=== PATIENT | female | born 1955 | race Caucasian/White ===

== ENCOUNTER 2018-09-27 20:23 | Inpatient (IN) | payer MEDICARE, SELFPAY ==
[2018-09-27 20:42] VITALS: BP 115/74; PULSE 99; RESP 25; TEMP 39.4; O2SAT 88; BMI 58.8
[2018-09-27 20:50] VITALS: O2SAT 95
--- NOTE | 2018-09-27 20:50 | RAD_ITS ---
STUDY: X-RAY CHEST REASON FOR EXAM: Female, 63 years old. General illness, pain. TECHNIQUE: Portable chest. COMPARISON: None. FINDINGS: No pleural effusion. Increased markings in the right lower lobe and mild opacity in the left midlung, concerning for pneumonic infiltrate. Normal size heart. Hilar and mediastinal shadows are normal. Soft tissues and bony structures are unremarkable. RAD/Chest 1 View (Portable) IMPRESSION: Mild increased opacity bilaterally, concerning for pneumonia. Electronically Signed: Lynn Villar MD at 21:12 EDT Tel , Service support ,
--- NOTE | 2018-09-27 20:52 | ED.RN ---
NO OLD EKGS IN MUSE
--- NOTE | 2018-09-27 21:06 | ED.DCSUM_ITS ---
History of Present Illness Chief Complaint: General Illness Informant: Patient Onset: Days Context: Gradual Onset Timing: Intermittent Current Severity: Moderate Maximum Severity: Moderate Narrative: The patient is an obese 63-year-old female with history of [id number] diabetes who presents to the emergency department with myalgias and arthralgias. She is also had nausea and vomiting. The patient's history is hard to gather. She states that she is been having symptoms like this since February. She states she is been seen at 2 different emergency departments and they have never been able to tell me what is wrong. However, she states today she had worsening muscular pains diffusely. She states that she knows that she has neuropathy, but this felt different. She also felt like she had a fever. The patient is on 3 L of oxygen chronically for underlying COPD. She does admit to cough. She states that she had nausea without any significant emesis. The patient called squad because she does not feel well. Prior similar symptoms: Yes Recent Illness/Hospitalization: No Past Medical History - Allergies and Home Meds Allergies/Adverse Reactions: Allergies acetaminophen [From Percocet] Adverse Reaction (Verified 09/27/18 20:27) Itching cefdinir [From Omnicef] Adverse Reaction (Verified 09/27/18 20:27) Hives fexofenadine [From Astrid] Adverse Reaction (Verified 09/27/18 20:28) Itching glyburide Adverse Reaction (Verified 09/27/18 20:27) Itching hydrocodone [From Vicodin] Adverse Reaction (Verified 09/27/18 20:27) Itching hydromorphone [From Dilaudid] Adverse Reaction (Verified 09/27/18 20:27) Itching meperidine [From Demerol] Adverse Reaction (Verified 09/27/18 20:27) Hives metformin Adverse Reaction (Verified 09/27/18 20:27) Itching oxycodone [From Percocet] Adverse Reaction (Verified 09/27/18 20:27) Itching Primary Care Physician: Anahi Portillo [Primary Care Provider] - Prior records reviewed: Yes Past Medical History: - - COPD with home oxygen dependence, CHF, diabetes Surgical History: herniorrhaphy, hysterectomy Lives: With Family Smoking Status: Former smoker Alcohol: None Drugs: None Review of Systems General: Reports: Chills, Fever Eyes: Denies: Visual changes - bilaterally, Diplopia ENT: Denies: Rhinorrhea, Sore throat Cardiovascular: Denies: Chest pain, Palpitations Respiratory: Denies: Dyspnea, Cough, Dyspnea on exertion Gastrointestinal: Reports: Nausea, Vomiting Genitourinary: Reports: Dysuria, Frequency Musculoskeletal: Reports: Myalgias, Arthralgias Skin: Denies: Rash, Wounds Neurological: Denies: Headache, Weakness, Numbness Physical Exam Vital Signs/Narrative: Vital Signs Temp Pulse Resp BP Pulse Ox 09/27/18 20:42 102.9 F H 99 25 H 115/74 88 Inital Vital Signs reviewed: Yes General: Well nourished, Well developed, Obese, No Acute Distress Head: Normocephalic, Atraumatic Eyes: Perrl, EOMI ENT: Moist mucous membranes, No rhinorrhea Neck: Supple, Nontender Cardiovascular: Regular rate, Regular rhythm, No murmurs Respiratory: No distress, Chest nontender, Decreased Air Movement Abdomen: Soft, Nontender, Nondistended, Normal bowel sounds, No masses Back: Nontender, Normal Inspection Extremities: Nontender, No edema Skin: Normal color, No rash Neurological: Alert, Oriented x3, Cranial nerves II-XII grossly intact, Normal Strength, Normal Sensation Psychological: Normal affect, Normal Mood Diagnostic/Tx/Re-eval Chest X-Ray - ED: 1 View, Right Infiltrate Clinical Impression(s) from Imaging Studies Chest X-Ray 09/27/18 20:50 IMPRESSION: Mild increased opacity bilaterally, concerning for pneumonia. Electronically Signed: Lynn Villar MD at 21:12 EDT Tel , Service support , Abnormal Lab Results 09/27/18 09/27/18 09/27/18 20:59 20:59 20:59 WBC 15.8 H RBC 5.15 Hgb 13.9 Hct 43.7 MCV 84.9 MCH 27.0 MCHC 31.8 L RDW Std Deviation 49.4 H RDW Coeff of Hemanth 15.7 H Plt Count 247 MPV 8.8 Immature Gran % (Auto) 0.400 Neut % (Auto) 86.4 H Lymph % (Auto) 6.3 L [place] % (Auto) 6.1 Eos % (Auto) 0.6 Baso % (Auto) 0.2 Absolute Neuts (auto) 13.7 H Absolute Lymphs (auto) 1.00 Nucleated RBC % 0 Sodium 134 L Potassium 4.6 Chloride 97 L Carbon Dioxide 35.0 H Anion Gap 2 L BUN 11 Creatinine 0.70 Estim Creat Clear Calc 85.14 Est GFR (MDRD) Af Amer 109 Est GFR (MDRD) Non-Af 90 BUN/Creatinine Ratio 15.6 Glucose 191 H Lactic Acid 1.8 Calcium 9.9 Total Bilirubin 0.50 AST 10 L ALT 14 Alkaline Phosphatase 146 H Total Protein 7.3 Albumin 3.4 Globulin 3.9 Albumin/Globulin Ratio 0.9 Urine Color Urine Clarity Urine pH Ur Specific [place] Urine Protein Urine Glucose (UA) Urine Ketones Urine Occult Blood Urine Nitrite Urine Bilirubin Urine Urobilinogen Ur Leukocyte Esterase 09/27/18 21:37 WBC RBC Hgb Hct MCV MCH MCHC RDW Std Deviation RDW Coeff of Hemanth Plt Count MPV Immature Gran % (Auto) Neut % (Auto) Lymph % (Auto) [place] % (Auto) Eos % (Auto) Baso % (Auto) Absolute Neuts (auto) Absolute Lymphs (auto) Nucleated RBC % Sodium Potassium Chloride Carbon Dioxide Anion Gap BUN Creatinine Estim Creat Clear Calc Est GFR (MDRD) Af Amer Est GFR (MDRD) Non-Af BUN/Creatinine Ratio Glucose Lactic Acid Calcium Total Bilirubin AST ALT Alkaline Phosphatase Total Protein Albumin Globulin Albumin/Globulin Ratio Urine Color Yellow Urine Clarity Sl. Cloudy Urine pH 6.0 Ur Specific [place] 1.010 Urine Protein Negative Urine Glucose (UA) Normal Urine Ketones 5 H Urine Occult Blood Negative Urine Nitrite Positive H Urine Bilirubin Negative Urine Urobilinogen Normal Ur Leukocyte Esterase 25 H - Rhythm Strip Rhythm Strip: Sinus Rhythm Rate: 97 Ectopy: None - EKG Initial EKG Interpretation: Sinus Rhythm, No Acute Injury Pattern Prior: No Prior - Medical Decision Making The patient presents with multiple complaints. However, she does have a fever and tachypnea. She is also had increasing cough and some shortness of breath above her baseline. Sepsis work-up was pursued. The patient was given Phenergan, fluids, and Tylenol. She was feeling markedly improved once her fever was treated. Chest x-ray does show questionable bilateral infiltrates. She does has lung change in the right lower lobe on auscultation. Patient does have a leukocytosis. Otherwise, her lab markers are unremarkable. Urine was nitrite positive so culture was added. I am going to treat the patient with Levaquin. Given her evidence of infectious process with underlying lung disease, I do feel that she will benefit from admission. The patient was discussed with the hospitalist. Impression 1. Sepsis 2. Community-acquired pneumonia ED Disposition - Plan for ED Patient: Referrals: Anahi Portillo [Primary Care Provider] -
[2018-09-27] MEDS: proMETHazine 25 MG/ML Syringe 6.25 MG IV (21:08)
[2018-09-27 21:20] LABS: Absolute Neutrophil Count 13.7 X10^3/uL (2.0-7.7); Basophil# 0.03 X10^3/uL; Basophil% 0.2 % (0-1); Eosinophil# 0.09 X10^3/uL; Eosinophils% 0.6 % (0-5); Hematocrit 43.7 % (37-47); Hemoglobin 13.9 g/dL (12.0-15.0); Lymphocyte % 6.3 % (19-41); Mean Corp Hgb Conc 31.8 g/dL (32-36); Mean Corpuscular Volume 84.9 fL (81-99); Mean Platelet Vol. 8.8 fl (6.2-12.0); Monocyte# 0.96 X10^3/uL; Monocyte% 6.1 % (0-10); NRBC Flagged by Analyzer 0 % (0-5); Neutrophil # 13.69 X10^3/uL (2.7-7.7); Neutrophil % 86.4 % (47-70); Platelet Count 247 K/mm3 (150-450); RBC Distribution Width CV 15.7 % (11.6-14.6); RBC Distribution Width SD 49.4 fl (35.1-43.9); Red Blood Count 5.15 M/mm3 (4.2-5.4); White Blood Count 15.8 K/mm3 (4.4-11.0)
[2018-09-27] MEDS: Acetaminophen 500 MG Tablet 1000 MG PO (21:27)
[2018-09-27 21:34] LABS: ALB/GLOB Ratio 0.9 RATIO (0.9-2.4); AST(SGOT) 10 U/L (15-37); Alanine Aminotransfer ALT/SGPT 14 U/L (13-56); Albumin, Serum 3.4 g/dL (3.2-5.0); Alkaline Phosphatase 146 U/L (45-117); Anion Gap 2 (5-15); BUN 11 mg/dL (7-18); BUN/Creat Ratio 15.6 RATIO (10-20); Calcium,Total 9.9 mg/dL (8.5-10.1); Chloride 97 mmol/L (98-107); EST Glomerular Filtration Rate 90 mL/min (>60); Est Glom Filt Rate - Afr Amer 109 mL/min (>60); Estimated Creatinine Clearance 85.14 ml/min; Globulin 3.9 g/dL (2.2-4.2); Glucose 191 mg/dL (74-106); Potassium 4.6 mmol/L (3.5-5.1); Protein, Total 7.3 g/dL (6.4-8.2); Sodium Level 134 mmol/L (136-145)
[2018-09-27 21:41] LABS: Lactic Acid 1.8 mmol/L (0.4-2.0)
[2018-09-27 21:57] LABS: Mucous, Urine 0 SEEN /hpf (<or=2+); Red Blood Cells-Urine 0 SEEN /hpf (0-5)
[2018-09-27] MEDS: levoFLOXacin IV 750 MG/150 ML BAG 100 MG IV (21:58)
[2018-09-27 22:10] LABS: Color, Urine Yellow (Yellow); Glucose, Dipstick Normal (Normal); Ketone-Dipstick 5 mg/dl (Negative); Leukocyte Esterase-Dipstick 25 /ul (Negative); Nitrite-Dipstick Positive (Negative); Occult Blood-Urine Negative /ul (Negative); Protein-Dipstick Negative (Negative); Urine Bilirubin Dipstick Negative (Negative); Urine Clarity Sl. Cloudy (Clear); Urine Urobilinogen Normal (Normal)
--- NOTE | 2018-09-27 22:16 | HP.PCM_ITS ---
History of Present Illness Date of Admission: 09/27/18 Chief Complaint: Shortness of breath, fever The patient is a 63 year old F with past medical history which includes COPD, chronic respiratory failure due to COPD, on 2 L of oxygen and non-insulin type Beatties mellitus. She was admitted through the ED on 09/27/2018 with complaint of fever and general malaise as well as cough for the past few days. Cough was nonproductive. She had assosciated shortness of breath and orthopnea and PND as well as nausea and vomiting. She denied any chest pain, palpitations or dizziness or abdominal pain. She denied any frequency of urination or burning with urination. In the ED, she was noted to be febrile with a temperature of 102.9 Fahrenheit and retreat was 25. Vitals were otherwise stable. She was requiring 3 L of oxygen to maintain saturation above 90%. Chemistry showed bicarb of 35 and sodium of 134 but was otherwise unremarkable. Lactic acid was 1.8. CBC showed white cell count of 15.8. Chest x-ray showed mild increased opacity bilaterally concerning for pneumonia. She has been admitted to be managed for sepsis due to community-acquired pneumonia. [] Past Medical History Allergies acetaminophen [From Percocet] Adverse Reaction (Verified 09/27/18 20:27) Itching cefdinir [From Omnicef] Adverse Reaction (Verified 09/27/18 20:27) Hives fexofenadine [From Astrid] Adverse Reaction (Verified 09/27/18 20:28) Itching glyburide Adverse Reaction (Verified 09/27/18 20:27) Itching hydrocodone [From Vicodin] Adverse Reaction (Verified 09/27/18 20:27) Itching hydromorphone [From Dilaudid] Adverse Reaction (Verified 09/27/18 20:27) Itching meperidine [From Demerol] Adverse Reaction (Verified 09/27/18 20:27) Hives metformin Adverse Reaction (Verified 09/27/18 20:27) Itching oxycodone [From Percocet] Adverse Reaction (Verified 09/27/18 20:27) Itching Home Medications: Ambulatory Orders Medication Instructions Recorded Albuterol Aerosols [Ventolin 2.5 mg INHALATION Q6H PRN PRN 09/27/18 Aerosols] Bupropion HCl [Bupropion Xl] 150 mg PO BID 09/27/18 Citalopram [Celexa] 40 mg PO DAILY 09/27/18 Cyclobenzaprine HCl 10 mg PO TID PRN 09/27/18 Furosemide 40 mg PO QHS 09/27/18 Furosemide 80 mg PO DAILY 09/27/18 Gabapentin [Neurontin] 300 mg PO TID 09/27/18 Glyburide 5 mg PO LUNCH 09/27/18 Glyburide 10 mg PO DINNER 09/27/18 Insulin Glargine,Hum.rec.anlog 20 unit SQ QHS 09/27/18 [Toujeo Solostar] Metoprolol Succinate [Toprol Xl] 100 mg PO BID 09/27/18 Ranitidine [Zantac] 150 mg PO QHS 09/27/18 Simvastatin 40 mg PO QHS 09/27/18 Verapamil HCl [Verapamil ER] 240 mg PO DAILY 09/27/18 Surgical History: herniorrhaphy, hysterectomy Lives: With Family Smoking Status: Former smoker Alcohol: None Drugs: None Review of Systems Constitutional: Reports: Chills, Fever, Malaise, Weakness, Fatigue. Denies: Anorexia Eyes: Denies: Blurred vision HEENT: Denies: Head Aches, Sinus Congestion, Sinus Drainage Cardiovascular: Denies: Chest Pain, Chest Tightness, Edema, Heaviness, Light Headedness, Orthopnea, Palpitations Respiratory: Reports: Cough, Shortness of Breath, Shortness of breath at rest, Shortness of breath upon exertion. Denies: Pleuritic Pain, Sputum production, Wheezing Gastrointestinal: Denies: Abdominal Pain, Nausea, Vomiting Genitourinary: Denies: Dysuria Musculoskeletal: Denies: Joint Pain, Joint Tenderness Skin: Denies: Rash, Wounds Neurological: Denies: Numbness, Tingling, Focal weakness Psychiatric: Denies: Anxiety, Depression, Homicidal Ideations, Suicidal Ideations Hematologic/ Lymphatic: Denies: Easy Bruising, Easy Bleeding VTE Information - Inpt Only VTE Present on Admission: No VTE Pharm Prophylaxis ordered?: Yes - Physical Exam General: Alert, Oriented x3, Cooperative, No apparent distress, - - Super morbid obesity. HEENT: Atraumatic, PERRLA, EOMI, Normocephalic Oral: Moist Mucosa Neck: Supple, No JVD, Negative Carotid Bruits Lungs: - - Decreased breath sounds bibasilarly. No wheezes or crackles. On 3 L of oxygen. Cardiovascular: Regular rate, Regular Rhythm, Normal S1, Normal S2, No murmurs Abdomen: Bowel Sounds Present, Soft, Non Tender, Non-Distended, No Hepato- splenomegaly Extremities: No clubbing, No cyanosis, No edema, Capillary Refill Less than 3 Seconds Skin: No rashes, No breakdown Musculoskeletal: No Tenderness to Palpation of Joints or Extremities Lymphatic: No Cervical, Supraclavicular, or Inguinal Adenopathy Neurological: Cranial nerves II-XII grossly intact Psych/Mental Status: Normal Affect, Appropriate, Alert and oriented to time, place, person, mood and affect Vital Signs Temp Pulse Resp BP Pulse Ox 102.9 F H 99 25 H 115/74 95 09/27/18 20:42 09/27/18 20:42 09/27/18 20:42 09/27/18 20:42 09/27/18 20:50 Oxygen Flow Rate (L/min) 3 Oxygen Delivery Method Nasal Cannula Weight: 387 lb 5.635 oz Body Mass Index (BMI) 58.8 Laboratory Tests Past 24 Hrs 09/27/18 09/27/18 09/27/18 20:59 20:59 20:59 WBC 15.8 H RBC 5.15 Hgb 13.9 Hct 43.7 MCV 84.9 MCH 27.0 MCHC 31.8 L RDW Std Deviation 49.4 H RDW Coeff of Hemanth 15.7 H Plt Count 247 MPV 8.8 Immature Gran % (Auto) 0.400 Neut % (Auto) 86.4 H Lymph % (Auto) 6.3 L [place] % (Auto) 6.1 Eos % (Auto) 0.6 Baso % (Auto) 0.2 Absolute Neuts (auto) 13.7 H Absolute Lymphs (auto) 1.00 Nucleated RBC % 0 Sodium 134 L Potassium 4.6 Chloride 97 L Carbon Dioxide 35.0 H Anion Gap 2 L BUN 11 Creatinine 0.70 Estim Creat Clear Calc 85.14 Est GFR (MDRD) Af Amer 109 Est GFR (MDRD) Non-Af 90 BUN/Creatinine Ratio 15.6 Glucose 191 H Lactic Acid 1.8 Calcium 9.9 Total Bilirubin 0.50 AST 10 L ALT 14 Alkaline Phosphatase 146 H Total Protein 7.3 Albumin 3.4 Globulin 3.9 Albumin/Globulin Ratio 0.9 Urine Color Urine Clarity Urine pH Ur Specific [place] Urine Protein Urine Glucose (UA) Urine Ketones Urine Occult Blood Urine Nitrite Urine Bilirubin Urine Urobilinogen Ur Leukocyte Esterase Urine RBC Urine WBC Ur Squamous Epith Cells Urine Bacteria Urine Mucus 09/27/18 21:37 WBC RBC Hgb Hct MCV MCH MCHC RDW Std Deviation RDW Coeff of Hemanth Plt Count MPV Immature Gran % (Auto) Neut % (Auto) Lymph % (Auto) [place] % (Auto) Eos % (Auto) Baso % (Auto) Absolute Neuts (auto) Absolute Lymphs (auto) Nucleated RBC % Sodium Potassium Chloride Carbon Dioxide Anion Gap BUN Creatinine Estim Creat Clear Calc Est GFR (MDRD) Af Amer Est GFR (MDRD) Non-Af BUN/Creatinine Ratio Glucose Lactic Acid Calcium Total Bilirubin AST ALT Alkaline Phosphatase Total Protein Albumin Globulin Albumin/Globulin Ratio Urine Color Yellow Urine Clarity Sl. Cloudy Urine pH 6.0 Ur Specific [place] 1.010 Urine Protein Negative Urine Glucose (UA) Normal Urine Ketones 5 H Urine Occult Blood Negative Urine Nitrite Positive H Urine Bilirubin Negative Urine Urobilinogen Normal Ur Leukocyte Esterase 25 H Urine RBC Pending Urine WBC Pending Ur Squamous Epith Cells Pending Urine Bacteria Pending Urine Mucus Pending Diagnostic Data Chest X-Ray 09/27/18 20:50 IMPRESSION: Mild increased opacity bilaterally, concerning for pneumonia. Electronically Signed: Lynn Villar MD at 21:12 EDT Tel , Service support , Assessment/Plan 63-year-old female admitted with a complaint of fever, cough and shortness of breath. 1. Sepsis due to community acquired pneumonia and UTI * admit to PCU with telemetry * SIRS criteria is 2/4 (tachypnea and leucocytosis) * CXR showed mild increased opacity bilaterally, concerning for pneumonia) * hydrate with IVF NS. * start IV levaquin * Check sputum culture and urine for strep and Legionella as well as blood cultures. * Treat oxygen to maintain saturation above 90%. * 2. UTI: Urine bacteria 3+. Will check urine culture. Should be covered with IV levaquin. 3. Chronic hypoxic respiratory failure due to COPD: On 2 to 3 L of oxygen was on her baseline. Continue breathing treatments. 4. Hypertension: On metoprolol and verapamil. Will continue. 5. Depression: On bupropion and citalopram. 2. ?heart failure, EF unknown: not in exacerbation. On Lasix 80 mg in the morning and 40 mg at night.. Will check BNP. will get 2D echo, as no echo in records dVT prophylaxis: Lovenox Code Visit Inpatient E&M: 91543 Init Hosp L3
[2018-09-27 22:20] LABS: Bacteria 3+ /hpf (None Seen); Squamous Epithelial Cells - UA 0-5 SEEN /hpf (5-10); White Blood Cells 0-5 SEEN /hpf (0-5)
[2018-09-27 23:18] VITALS: BP 106/48; PULSE 88; PULSE 90; RESP 22; TEMP 37.5; O2SAT 92
[2018-09-27 23:19] VITALS: BP 83/37
[2018-09-27 23:26] VITALS: BMI 58.5
--- NOTE | 2018-09-27 23:34 | NURSING ---
Pt doesn't know when last pneumonia shot was.
[2018-09-27 23:45] VITALS: BMI 58.5
[2018-09-28] VITALS (15 sets, daily range): BP systolic 109–148; BP diastolic 41–77; PULSE 86–94; RESP 16–27; TEMP 36.9–38.4; O2SAT 92–98
[2018-09-28] MEDS: 0.9% Normal Saline 1,000 ML 999 ML IV (02:30)
[2018-09-28 02:36] LABS: BNP,B-Type NATRIURETIC PEPTIDE 13.6 pg/mL (0-100)
[2018-09-28] MEDS: 0.9% Normal Saline 1,000 ML 150 ML IV (04:04)
[2018-09-28] MEDS: Gabapentin 300 MG Capsule PO ×3 (05:42→22:06)
[2018-09-28] MEDS: Acetaminophen 325 MG Tablet 650 MG PO ×3 (05:42→23:35)
[2018-09-28 06:32] LABS: Absolute Lymphocyte Count 1.04 X10^3/uL (0.83-4.51); Absolute Neutrophil Count 15.2 X10^3/uL (2.0-7.7); Basophil# 0.04 X10^3/uL; Basophil% 0.2 % (0-1); Eosinophil# 0.01 X10^3/uL; Eosinophils% 0.1 % (0-5); Hematocrit 39.2 % (37-47); Hemoglobin 12.4 g/dL (12.0-15.0); Lymphocyte # 1.04 X10^3/ul (4.0); Mean Corp Hgb Conc 31.6 g/dL (32-36); Mean Corpuscular Hgb 26.2 pg (27.0-32.0); Mean Corpuscular Volume 82.7 fL (81-99); Mean Platelet Vol. 9.2 fl (6.2-12.0); Monocyte# 0.95 X10^3/uL; Monocyte% 5.5 % (0-10); NRBC Flagged by Analyzer 0 % (0-5); Neutrophil # 15.15 X10^3/uL (2.7-7.7); Neutrophil % 87.6 % (47-70); Platelet Count 223 K/mm3 (150-450); RBC Distribution Width CV 16.1 % (11.6-14.6); RBC Distribution Width SD 48.6 fl (35.1-43.9); Red Blood Count 4.74 M/mm3 (4.2-5.4); White Blood Count 17.3 K/mm3 (4.4-11.0)
[2018-09-28 06:46] LABS: Anion Gap 5 (5-15); BUN 12 mg/dL (7-18); BUN/Creat Ratio 16.8 RATIO (10-20); Calcium,Total 8.8 mg/dL (8.5-10.1); Chloride 101 mmol/L (98-107); Creatinine, Serum 0.71 mg/dL (0.55-1.02); EST Glomerular Filtration Rate 88 mL/min (>60); Est Glom Filt Rate - Afr Amer 107 mL/min (>60); Estimated Creatinine Clearance 83.94 ml/min; Glucose 110 mg/dL (74-106); Potassium 4.2 mmol/L (3.5-5.1); Sodium Level 136 mmol/L (136-145)
[2018-09-28 06:50] LABS: Bedside Glucose 100 mg/dL (70-110)
--- NOTE | 2018-09-28 08:35 | PN_ITS ---
Subjective: Patient is a 63-year-old lady past medical history significant for COPD who presented with progressive shortness of breath. Imaging studies on admission obtain was consistent with pneumonia. An assessment of sepsis secondary to pneumonia made admitted for further inpatient management. Patient seen still has significant dyspnea at rest continues to spike low-grade fever. Objective: GENERAL: cooperative HEENT: Atraumatic; moist oral mucosa EYES; Anicteric, Normal Conjunctiva NECK; supple, normal thyroid, no distended JVD. RESPIRATORY: Diminished to auscultation bilaterally, CARDIOVASCULAR: Regular S1 S2, no audible murmurs GI: soft, non-tender, normoactive bowel sounds, : No Renal angle tenderness; EXTREMITIES: No edema, no clubbing, no cyanosis. MUSCULOSKELETAL: No Joint Tenderness; no muscle waisting NEURO: Awake; no lateralizing signs. SKIN: No Rash PSYCH; Normal affect Vitals/I&O's: Vital Signs Temp Pulse Resp BP Pulse Ox 100.2 F H 87 22 H 112/51 L 93 09/28/18 07:34 09/28/18 07:34 09/28/18 07:34 09/28/18 07:34 09/28/18 07:34 Oxygen Flow Rate (L/min) 3 Oxygen Delivery Method Nasal Cannula Weight: 174.6 kg Body Mass Index (BMI) 58.5 Intake and Output for Last 24 Hours 09/26/18 09/27/18 09/28/18 23:59 23:59 23:59 Intake Total 251 / 251 1561 / 1561 Balance 251 / 251 1561 / 1561 Laboratory Results 09/27/18 20:59: WBC 15.8 H, RBC 5.15, Hgb 13.9, Hct 43.7, MCV 84.9, MCH 27.0, MCHC 31.8 L, RDW Std Deviation 49.4 H, RDW Coeff of Hemanth 15.7 H, Plt Count 247, MPV 8.8, Immature Gran % (Auto) 0.400, Neut % (Auto) 86.4 H, Lymph % (Auto) 6.3 L, [place] % (Auto) 6.1, Eos % (Auto) 0.6, Baso % (Auto) 0.2, Absolute Neuts (auto) 13.7 H, Absolute Lymphs (auto) 1.00, Nucleated RBC % 0 09/27/18 20:59: Sodium 134 L, Potassium 4.6, Chloride 97 L, Carbon Dioxide 35.0 H, Anion Gap 2 L, BUN 11, Creatinine 0.70, Estim Creat Clear Calc 85.14, Est GFR (MDRD) Af Amer 109, Est GFR (MDRD) Non-Af 90, BUN/Creatinine Ratio 15.6, Glucose 191 H, Calcium 9.9, Total Bilirubin 0.50, AST 10 L, ALT 14, Alkaline Phosphatase 146 H, Total Protein 7.3, Albumin 3.4, Globulin 3.9, Albumin/Globulin Ratio 0.9 09/27/18 20:59: Lactic Acid 1.8 09/27/18 20:59: B-Natriuretic Peptide 13.6 09/27/18 21:37: Urine Color Yellow, Urine Clarity Sl. Cloudy, Urine pH 6.0, Ur Specific [place] 1.010, Urine Protein Negative, Urine Glucose (UA) Normal, Urine Ketones 5 H, Urine Occult Blood Negative, Urine Nitrite Positive H, Urine Bilirubin Negative, Urine Urobilinogen Normal, Ur Leukocyte Esterase 25 H, Urine RBC 0 SEEN, Urine WBC 0-5 SEEN, Ur Squamous Epith Cells 0-5 SEEN, Urine Bacteria 3+, Urine Mucus 0 SEEN 09/28/18 06:00: WBC 17.3 H, RBC 4.74, Hgb 12.4, Hct 39.2, MCV 82.7, MCH 26.2 L, MCHC 31.6 L, RDW Std Deviation 48.6 H, RDW Coeff of Hemanth 16.1 H, Plt Count 223, MPV 9.2, Immature Gran % (Auto) 0.600, Neut % (Auto) 87.6 H, Lymph % (Auto) 6.0 L, [place] % (Auto) 5.5, Eos % (Auto) 0.1, Baso % (Auto) 0.2, Absolute Neuts (auto) 15.2 H, Absolute Lymphs (auto) 1.04, Nucleated RBC % 0 09/28/18 06:00: Sodium 136, Potassium 4.2, Chloride 101, Carbon Dioxide 30.0, Anion Gap 5, BUN 12, Creatinine 0.71, Estim Creat Clear Calc 83.94, Est GFR (MDRD) Af Amer 107, Est GFR (MDRD) Non-Af 88, BUN/Creatinine Ratio 16.8, Glucose 110 H, Calcium 8.8 09/28/18 06:45: POC Glucose 100 Current Medications Acetaminophen (Tylenol) 650 mg PO Q6H PRN PRN PRN Reason: Pain/Fever Last Admin: 09/28/18 05:42 Dose: 650 mg Documented by: Albuterol Sulfate (Ventolin Aerosols) 2.5 mg INHALATION Q6H PRN PRN PRN Reason: SOB &/OR WHEEZING Atorvastatin Calcium (Lipitor) 20 mg PO QHS [facility]1983 Bupropion HCl (Wellbutrin Xl) 150 mg PO BID ARASELI Citalopram Hydrobromide (Celexa) 40 mg PO DAILY ARASELI Cyclobenzaprine HCl (Flexeril) 10 mg PO TID PRN PRN Reason: SPASMS Dextrose (D50w Syringe) 0 gm IV X1 PRN; Protocol PRN Reason: Hypoglycemia Enoxaparin Sodium (Lovenox) 40 mg SC DAILY@1000 ARASELI Famotidine (Pepcid) 20 mg PO QHS [facility]1983 Gabapentin (Neurontin) 300 mg PO TID [facility] Last Admin: 09/28/18 05:42 Dose: 300 mg Documented by: Glucagon () 1 mg IM .X1 PRN PRN Reason: Hypoglycemia Guaifenesin (Robitussin) 20 ml PO Q4H PRN PRN PRN Reason: COUGH Levofloxacin (Levaquin Iv) 750 mg in 150 mls @ 100 mls/hr IV Q24 ARASELI Sodium Chloride () 250 mls @ 15 mls/hr IV .[id number] PRN PRN Reason: SALINE FLUSH Sodium Chloride () 1,000 mls @ 150 mls/hr IV .Q6H40M [facility]1983 Stop: 09/28/18 15:04 Last Admin: 09/28/18 04:04 Dose: 150 mls/hr Documented by: Insulin Human Lispro (Humalog Kwikpen (Bkc)) 0 unit SC ACHS ARASELI; Protocol Last Admin: 09/28/18 06:46 Dose: Not Given Documented by: Nutritional Formula (Lactose Free) (Glucerna Shake) 120 ml PO 4X/DAY [facility] Ondansetron HCl (Zofran) 4 mg IV Q8H PRN PRN PRN Reason: NAUSEA/VOMITING Sodium Chloride () 10 - 40 ml IV UD PRN PRN Reason: SALINE FLUSH Medical Necessity - Tobacco Use Smoking Status: Former smoker Tobacco Use: Cigarettes Assessment/Plan Patient is a 63-year-old lady past medical history significant for COPD who presented with progressive shortness of breath. Imaging studies on admission obtain was consistent with pneumonia. An assessment of sepsis secondary to pneumonia made admitted for further inpatient management. 1. Sepsis secondary to community-acquired pneumonia. Admitted to regular nursing floor started on Levaquin, aerosol treatment as well as supplemental oxygen titrated to keep pulse ox greater than 90 2. Acute on chronic congestive heart failure with unknown EF and echo has been obtained for EF assessment. Did discontinue patient's IV fluids started on Lasix 3. COPD with acute exacerbation possibly preceded by #1 added low-dose steroids in addition to treatment described above 4. Chronic hypoxic respiratory failure secondary to COPD patient is on baseline 2 to 3 L of oxygen at home. Did continue with that in addition to breathing treatment 5. Dyslipidemia-patient is on statin therapy, continued at home dose 6. Hypertension-blood pressure controlled, home medications continued with dose adjustment as needed 7. Depression with anxiety patient is on bupropion as well as citalopram did continue 8. Obstructive sleep apnea patient was apparently placed on CPAP she however did not tolerate it 9. Obesity with BMI of 58.5 with loss advised 10. DVT prophylaxis SC Lovenox Active Medications Acetaminophen (Tylenol) 650 mg PO Q6H PRN PRN PRN Reason: Pain/Fever Last Admin: 09/28/18 05:42 Dose: 650 mg Documented by: Albuterol Sulfate (Ventolin Aerosols) 2.5 mg INHALATION Q6H PRN PRN PRN Reason: SOB &/OR WHEEZING Atorvastatin Calcium (Lipitor) 20 mg PO QHS ARASELI Bupropion HCl (Wellbutrin Xl) 150 mg PO BID ARASELI Citalopram Hydrobromide (Celexa) 40 mg PO DAILY ARASELI Cyclobenzaprine HCl (Flexeril) 10 mg PO TID PRN PRN Reason: SPASMS Dextrose (D50w Syringe) 0 gm IV X1 PRN; Protocol PRN Reason: Hypoglycemia Enoxaparin Sodium (Lovenox) 40 mg SC DAILY@1000 ARASELI Famotidine (Pepcid) 20 mg PO QHS [facility]1983 Gabapentin (Neurontin) 300 mg PO TID [facility]1983 Last Admin: 09/28/18 05:42 Dose: 300 mg Documented by: Glucagon () 1 mg IM .X1 PRN PRN Reason: Hypoglycemia Guaifenesin (Robitussin) 20 ml PO Q4H PRN PRN PRN Reason: COUGH Levofloxacin (Levaquin Iv) 750 mg in 150 mls @ 100 mls/hr IV Q24 ARASELI Sodium Chloride () 250 mls @ 15 mls/hr IV .[id number] PRN PRN Reason: SALINE FLUSH Sodium Chloride () 1,000 mls @ 150 mls/hr IV .Q6H40M ARASELI Stop: 09/28/18 15:04 Last Admin: 09/28/18 04:04 Dose: 150 mls/hr Documented by: Insulin Human Lispro (Humalog Kwikpen (Bkc)) 0 unit SC ACHS ARASELI; Protocol Last Admin: 09/28/18 06:46 Dose: Not Given Documented by: Nutritional Formula (Lactose Free) (Glucerna Shake) 120 ml PO 4X/DAY ARASELI Ondansetron HCl (Zofran) 4 mg IV Q8H PRN PRN PRN Reason: NAUSEA/VOMITING Sodium Chloride () 10 - 40 ml IV UD PRN PRN Reason: SALINE FLUSH Clinical Impression(s) from Imaging Studies Chest X-Ray 09/27/18 20:50 IMPRESSION: Mild increased opacity bilaterally, concerning for pneumonia. Electronically Signed: Lynn Villar MD at 21:12 EDT Tel , Service support , Code Visit Inpatient E&M: 22542 [facility] Hosp L3
--- NOTE | 2018-09-28 09:35 | CON.PCM_ITS ---
Reason for Consult Date of Consultation: 09/28/18 Reason for Consultation: Dyspnea History of Present Illness: The patient is a 63-year-old female, with a history as outlined below, who presented to the emergency department on September 27 with complaints of generalized malaise, shortness of breath and cough. The patient has a self- reported history of COPD and asthma. She reports that she is currently followed by Dr. Shon Olmedo in [place]. She was last seen by her primary performance improvement consultant 2 months ago. She reports that she is on Advair Diskus at her baseline along with as needed albuterol. In addition, she has a baseline supplemental oxygen requirement of 2 to 3 L. She has an approximate [id number] smoking history, having quit completely in 2004. In addition, the patient has known severe obstructive sleep apnea, for which she was previously placed on nocturnal BiPAP therapy. However, the patient eventually became noncompliant with its use and therefore does not utilize any form of Pap therapy on a nightly basis any longer. On presentation to the emergency department, the patient was noted to be febrile with a temperature of 102.9 ?F. She was hemodynamically stable. Initial laboratory evaluation revealed an elevated white blood cell count to 16,000. Chemistry profile was notable for an elevated bicarbonate to 35. Lactate was within normal limits. Urinalysis was positive for nitrites and leukocyte esterase along with 3+ urine bacteria. Plain film chest x-ray revealed opacities within the right lower lobe and left mid/lower lung field. The patient was subsequently started on bronchodilators and antimicrobials. She was then admitted to the progressive care unit for further management. Past Medical History Allergies acetaminophen [From Percocet] Adverse Reaction (Verified 09/27/18 20:27) Itching cefdinir [From Omnicef] Adverse Reaction (Verified 09/27/18 20:27) Hives fexofenadine [From Astrid] Adverse Reaction (Verified 09/27/18 20:28) Itching glyburide Adverse Reaction (Verified 09/27/18 20:27) Itching hydrocodone [From Vicodin] Adverse Reaction (Verified 09/27/18 20:27) Itching hydromorphone [From Dilaudid] Adverse Reaction (Verified 09/27/18 20:27) Itching meperidine [From Demerol] Adverse Reaction (Verified 08/15/19 20:27) Hives metformin Adverse Reaction (Verified 09/27/18 20:27) Itching oxycodone [From Percocet] Adverse Reaction (Verified 09/27/18 20:27) Itching Home Medications: Ambulatory Orders Medication Instructions Recorded Albuterol Aerosols [Ventolin 2.5 mg INHALATION Q6H PRN PRN 09/27/18 Aerosols] Bupropion HCl [Bupropion Xl] 150 mg PO BID 09/27/18 Citalopram [Celexa] 40 mg PO DAILY 09/27/18 Cyclobenzaprine HCl 10 mg PO TID PRN 09/27/18 Furosemide 40 mg PO QHS 09/27/18 Furosemide 80 mg PO DAILY 09/27/18 Gabapentin [Neurontin] 300 mg PO TID 09/27/18 Glyburide 5 mg PO LUNCH 09/27/18 Glyburide 10 mg PO DINNER 09/27/18 Insulin Glargine,Hum.rec.anlog 20 unit SQ QHS 09/27/18 [Toujeo Solostar] Metoprolol Succinate [Toprol Xl] 100 mg PO BID 09/27/18 Ranitidine [Zantac] 150 mg PO QHS 09/27/18 Simvastatin 40 mg PO QHS 09/27/18 Verapamil HCl [Verapamil ER] 240 mg PO DAILY 09/27/18 Surgical History: herniorrhaphy, hysterectomy Lives: With Family Smoking Status: Former smoker Tobacco Use: Cigarettes Alcohol: None Drugs: None Review of Systems Constitutional: Reports: Malaise, Weakness, Fatigue Eyes: Denies: Blurred vision, Double vision HEENT: Denies: Head Aches, Sinus Congestion, Sinus Drainage Cardiovascular: Denies: Chest Pain, Palpitations Respiratory: Reports: Cough, Shortness of Breath. Denies: Sputum production Gastrointestinal: Denies: Abdominal Pain, Nausea, Vomiting Genitourinary: Denies: Dysuria Musculoskeletal: Denies: Joint Pain, Joint Tenderness Skin: Denies: Rash, Wounds Neurological: Denies: Numbness, Tingling, Focal weakness Psychiatric: Denies: Anxiety, Depression, Homicidal Ideations, Suicidal Ideations Hematologic/ Lymphatic: Denies: Easy Bruising, Easy Bleeding Objective: The patient's most recent lab work, culture data and imaging studies have all been personally reviewed. - Physical Exam General: Alert, Cooperative, No apparent distress, - - Morbidly obese. Resting comfortably in bed. HEENT: Atraumatic, PERRLA, Normocephalic Oral: No Gingival or Mucosal Lesions/ Ulcerations Neck: Supple, No Nodes, Trachea Midline Lungs: No rhonchi, No wheeze, No rales, Diminished Cardiovascular: Regular rate, Regular Rhythm, Normal S1, Normal S2, No murmurs Abdomen: Bowel Sounds Present, Soft, Obese Extremities: No clubbing, No cyanosis, No edema Skin: No breakdown Musculoskeletal: No Muscle Wasting Lymphatic: No Cervical, Supraclavicular, or Inguinal Adenopathy Neurological: Cranial nerves II-XII grossly intact, Neuro grossly intact Psych/Mental Status: Alert and oriented to time, place, person, mood and affect Vital Signs Temp Pulse Resp BP Pulse Ox 100.2 F H 87 22 H 112/51 L 93 09/28/18 07:34 09/28/18 07:34 09/28/18 07:34 09/28/18 07:34 09/28/18 07:34 Oxygen Flow Rate (L/min) 3 Oxygen Delivery Method Nasal Cannula Weight: 384 lb 14.833 oz Body Mass Index (BMI) 58.5 Intake and Output for Last 24 Hours 09/26/18 09/27/18 09/28/18 23:59 23:59 23:59 Intake Total 251 / 251 1561 / 1561 Balance 251 / 251 1561 / 1561 Microbiology Past 72 Hours 09/27/18 21:37 Streptococcus pneumoniae Antigen (M - Final Urine Catheter - Catheter 09/27/18 21:37 Legionella Antigen - Final Urine Catheter - Catheter Laboratory Tests Past 24 Hrs 09/27/18 09/27/18 09/27/18 20:59 20:59 20:59 WBC 15.8 H RBC 5.15 Hgb 13.9 Hct 43.7 MCV 84.9 MCH 27.0 MCHC 31.8 L RDW Std Deviation 49.4 H RDW Coeff of Hemanth 15.7 H Plt Count 247 MPV 8.8 Immature Gran % (Auto) 0.400 Neut % (Auto) 86.4 H Lymph % (Auto) 6.3 L Grayson % (Auto) 6.1 Eos % (Auto) 0.6 Baso % (Auto) 0.2 Absolute Neuts (auto) 13.7 H Absolute Lymphs (auto) 1.00 Nucleated RBC % 0 Sodium 134 L Potassium 4.6 Chloride 97 L Carbon Dioxide 35.0 H Anion Gap 2 L BUN 11 Creatinine 0.70 Estim Creat Clear Calc 85.14 Est GFR (MDRD) Af Amer 109 Est GFR (MDRD) Non-Af 90 BUN/Creatinine Ratio 15.6 Glucose 191 H Lactic Acid 1.8 Calcium 9.9 Total Bilirubin 0.50 AST 10 L ALT 14 Alkaline Phosphatase 146 H B-Natriuretic Peptide Total Protein 7.3 Albumin 3.4 Globulin 3.9 Albumin/Globulin Ratio 0.9 Urine Color Urine Clarity Urine pH Ur Specific [place] Urine Protein Urine Glucose (UA) Urine Ketones Urine Occult Blood Urine Nitrite Urine Bilirubin Urine Urobilinogen Ur Leukocyte Esterase Urine RBC Urine WBC Ur Squamous Epith Cells Urine Bacteria Urine Mucus 09/27/18 09/27/18 09/28/18 20:59 21:37 06:00 WBC 17.3 H RBC 4.74 Hgb 12.4 Hct 39.2 MCV 82.7 MCH 26.2 L MCHC 31.6 L RDW Std Deviation 48.6 H RDW Coeff of Hemanth 16.1 H Plt Count 223 MPV 9.2 Immature Gran % (Auto) 0.600 Neut % (Auto) 87.6 H Lymph % (Auto) 6.0 L [place] % (Auto) 5.5 Eos % (Auto) 0.1 Baso % (Auto) 0.2 Absolute Neuts (auto) 15.2 H Absolute Lymphs (auto) 1.04 Nucleated RBC % 0 Sodium Potassium Chloride Carbon Dioxide Anion Gap BUN Creatinine Estim Creat Clear Calc Est GFR (MDRD) Af Amer Est GFR (MDRD) Non-Af BUN/Creatinine Ratio Glucose Lactic Acid Calcium Total Bilirubin AST ALT Alkaline Phosphatase B-Natriuretic Peptide 13.6 Total Protein Albumin Globulin Albumin/Globulin Ratio Urine Color Yellow Urine Clarity Sl. Cloudy Urine pH 6.0 Ur Specific [place] 1.010 Urine Protein Negative Urine Glucose (UA) Normal Urine Ketones 5 H Urine Occult Blood Negative Urine Nitrite Positive H Urine Bilirubin Negative Urine Urobilinogen Normal Ur Leukocyte Esterase 25 H Urine RBC 0 SEEN Urine WBC 0-5 SEEN Ur Squamous Epith Cells 0-5 SEEN Urine Bacteria 3+ Urine Mucus 0 SEEN 09/28/18 06:00 WBC RBC Hgb Hct MCV MCH MCHC RDW Std Deviation RDW Coeff of Hemanth Plt Count MPV Immature Gran % (Auto) Neut % (Auto) Lymph % (Auto) [place] % (Auto) Eos % (Auto) Baso % (Auto) Absolute Neuts (auto) Absolute Lymphs (auto) Nucleated RBC % Sodium 136 Potassium 4.2 Chloride 101 Carbon Dioxide 30.0 Anion Gap 5 BUN 12 Creatinine 0.71 Estim Creat Clear Calc 83.94 Est GFR (MDRD) Af Amer 107 Est GFR (MDRD) Non-Af 88 BUN/Creatinine Ratio 16.8 Glucose 110 H Lactic Acid Calcium 8.8 Total Bilirubin AST ALT Alkaline Phosphatase B-Natriuretic Peptide Total Protein Albumin Globulin Albumin/Globulin Ratio Urine Color Urine Clarity Urine pH Ur Specific [place] Urine Protein Urine Glucose (UA) Urine Ketones Urine Occult Blood Urine Nitrite Urine Bilirubin Urine Urobilinogen Ur Leukocyte Esterase Urine RBC Urine WBC Ur Squamous Epith Cells Urine Bacteria Urine Mucus POC Glucose 09/28/18 06:45 POC Glucose 100 Clinical Impression(s) from Imaging Studies Chest X-Ray 09/27/18 20:50 IMPRESSION: Mild increased opacity bilaterally, concerning for pneumonia. Electronically Signed: Lynn Villar MD at 21:12 EDT Tel , Service support , Assessment/Plan RECOMMENDATIONS: 1. Continue baseline supplemental oxygen at 3 L/min. Encourage incentive spirometer use while in bed. 2. If the patient's cough becomes productive, please send sputum for culture. 3. Continue broad-spectrum antimicrobials. 4. Await echocardiogram. 5. Continue scheduled bronchodilators and steroids. 6. Mobilize patient as tolerated. Physical therapy evaluation pending. 7. The patient should have close interval follow-up with her primary performance improvement consultant, Dr. Olmedo, upon discharge from the hospital. IMPRESSIONS: 1. COPD/asthma exacerbation, likely secondary to community-acquired pneumonia/chronic hypoxemic respiratory failure The patient has a self-reported history of COPD/asthma of unknown severity, for which she is followed by Dr. Olmedo on an outpatient basis in [place]. She does report that her breathing quality is relatively controlled at her baseline with the use of Advair Diskus and as needed albuterol. She was last seen by her performance improvement consultant 2 months ago. She does report that her insurance company is no longer covering her Advair and she is in need of an alternative medication to take its place. She has a baseline supplemental oxygen requirement of 2 to 3 L. While the patient does endorse the presence of shortness of breath, she is currently maintaining saturations on her baseline supplemental oxygen requirement. She does have a cough, but has been unable to produce any sputum. I would recommend that if the patient's cough does become productive, to send a sample for culture. I agree with continuing empiric antimicrobials and bronchodilators for now. The patient will require close interval follow-up with her primary performance improvement consultant upon discharge from the hospital. 2. Congestive heart failure Unclear if the patient has diastolic or systolic mediated congestive heart failure. Echocardiogram is currently pending. She may also have a component of underlying pulmonary hypertension due to her underlying lung disease and noncompliance with treatment for obstructive sleep apnea. Recommend continuing outpatient diuretic regimen. 3. Obstructive sleep apnea The patient has known severe obstructive sleep apnea but has been noncompliant with the use of nocturnal BiPAP therapy for quite some time. She is not currently interested in pursuing any additional work-up or treatment for this issue. 4. Morbid obesity/hypertension/hyperlipidemia/depression/tobacco dependency, in remission/diabetes mellitus Complicates care, management, recovery and prognosis. Continue home medications as indicated. Physical therapy to evaluate patient. This note was generated with [employer] dictation software. It may contain incorrect words, spelling, and punctuation that were not noted in checking the note before signing. Code Visit Inpatient E&M: 90930 Init Hosp L3
[2018-09-28] MEDS: 0.9% NaCl Peripheral Flush Adult/Peds IV (09:46)
[2018-09-28] MEDS: levoFLOXacin IV 750 MG/150 ML BAG 100 MG IV (09:46)
[2018-09-28] MEDS: Furosemide 100 MG/10 ML Vial 80 MG IV (09:46)
[2018-09-28] MEDS: Glucerna Shake 120 ML LIQUID PO (09:48)
[2018-09-28] MEDS: Enoxaparin 40 MG/0.4 ML Syringe SC (09:59)
[2018-09-28] MEDS: Citalopram 40 MG TABLET PO (09:59)
[2018-09-28] MEDS: buPROPion (XL) 150 MG TABLET.XL PO ×2 (09:59→22:07)
[2018-09-28] MEDS: predniSONE 20 MG Tablet PO ×2 (09:59→16:27)
--- NOTE | 2018-09-28 11:29 | CASEMGMT ---
RN CM Assessment Presentation: Sepsis, pneumonia, Hx of COPD and ?CHF, Intro role of CM and purpose of RN CM assessment to patient in room. Pt is awake, alert and able to participate in assessment. Demographics, PCP and Pharmacy verified. Pt states she is generally home alone, sometimes up to 15 hours as her works. She is ambulatory in home with rollator, however states she has decreased activity level in general. Pt admits to falls at home and states this has decreased since she is using her rollator. Has not been to SNF in past, and no recent [facility] history, however pt did state she would be agreeable if recommended. -Discussed COPD and CHF management at home. Pt states she does take her medicines as orderes, former smoker. Does not actively weigh herself or monitor fluid intake. PCP: Dr. Portillo Specialists: cardiology, Dr. Gaona-pulmonology, Hematology clinic in [facility] Pharmacy: [facility] Insurance: [facility] Medicare Prescription Benefit: yes LNOK: Burke Bruno Living Arrangements: Lives in one story home with 3 steps into home. Pt states her assists with showering, cooking, cleaning. Transportation: drives DME: rollator, walker, cane, nebulizer, raised toilet seat -Home oxygen 3l [place] continuous through [facility]. Has concentrator, portability. HHC/SNF: none recent history. RN CM discussed PT/OT would evaluate pt and may recommend further therapy. Discussed Home Health, SNF. Patient DC goals: Home, but appears to be open to SNF if needed. DC PLAN: undetermined. Awaiting PT/OT evaluations for activity recommendations. Audrey SIEGEL RN ACM
[2018-09-28 11:35] LABS: Bedside Glucose 129 mg/dL (70-110)
--- NOTE | 2018-09-28 13:21 | CASEMGMT ---
Addendum entered by Verónica Turcios 09/28/18 13:35: SW spoke w/pt again, her first choice is [facility], second choice is [facility]. SW called [facility]. They can take bariatric patients. SW faxed referral, will continue to follow. MATTI Heaton Original Note: As per PT/OT, [facility] facility placement would be beneficial for this pt. SW met w/pt in regard to discharge plan. SW explained that as per PT/OT, pt would benefit from going to a [facility] facility for rehab. Pt is agreeable to this. SW provided a list of nursing homes in network with her insurance. She will review list and speak w/family, let SW know where she would like to go. SW will continue to follow and make referral as appropriate. MATTI Heaton
[2018-09-28] MEDS: Insulin Lispro 100 UNIT/ML INSULN.PEN SC ×2 (16:23→22:06)
[2018-09-28 16:35] LABS: Bedside Glucose 168 mg/dL (70-110)
--- NOTE | 2018-09-28 17:02 | CASEMGMT ---
Social Work Call placed to the [facility] to check if the can accept pt. Anahi states that pt is too ill at this time to accept but will reevaluate on Monday. Pt made aware and understanding. Pt stating if [facility] does not accept she would like [facility] or [facility]. SW to followup on Monday. EDGAR Trejo
--- NOTE | 2018-09-28 17:45 | EKG12_ITS ---
Test Reason : Blood Pressure : / mmHG Vent. Rate : 096 BPM Atrial Rate : 096 BPM P-R Int : 142 ms QRS Dur : 092 ms QT Int : 338 ms P-R-T Axes : 052 032 041 degrees QTc Int : 427 ms Normal sinus rhythm Nonspecific ST and T wave abnormality Abnormal ECG Confirmed by SUSAN ABREU, ANTIONE ([id number]), magazine editor ABDIEL WOO ([id number]) on 10/01/2018 1:12:50 PM Referred By: GIL Confirmed By:ALETHA DAVIS MD
--- NOTE | 2018-09-28 17:49 | NURSING ---
pt c/o chest pain/ pressure. this RN in room. VSS. EKG ordered. EKG sent to Dr. Jackson by [place] [facility].
--- NOTE | 2018-09-28 18:42 | NURSING ---
EKG originally sent to Dr. Jackson.Dr. Jackson apparently signed out. Dr. Salas notified. Dr Salas stated to send her old and new EKG. EKGs sent.
[2018-09-28] MEDS: Atorvastatin Calcium 20 MG Tablet PO (22:07)
[2018-09-28] MEDS: Famotidine 20 MG Tablet PO (22:07)
[2018-09-28 23:15] LABS: Bedside Glucose 278 mg/dL (70-110)
[2018-09-29] VITALS (10 sets, daily range): BP systolic 127–140; BP diastolic 61–74; PULSE 75–97; RESP 16–18; TEMP 36.7–37.2; O2SAT 93–97
[2018-09-29] MEDS: Gabapentin 300 MG Capsule PO ×3 (06:59→21:19)
[2018-09-29] MEDS: Insulin Lispro 100 UNIT/ML INSULN.PEN SC ×4 (06:59→21:18)
[2018-09-29 07:16] LABS: Bedside Glucose 195 mg/dL (70-110)
--- NOTE | 2018-09-29 07:31 | PCM.PN.HOSP ---
Subjective: Patient seen still remains relatively dyspneic at rest she however admitted to some improvement in her breathing. Echo was performed to assess the EF on 09/28/2018 results still pending. Potassium down to 3.3 this a.m. Repletion initiated. Objective: GENERAL: cooperative HEENT: Atraumatic; moist oral mucosa EYES; Anicteric, Normal Conjunctiva NECK; supple, normal thyroid, no distended JVD. RESPIRATORY: Diminished to auscultation bilaterally, CARDIOVASCULAR: Regular S1 S2, no audible murmurs GI: soft, non-tender, normoactive bowel sounds, : No Renal angle tenderness; EXTREMITIES: No edema, no clubbing, no cyanosis. MUSCULOSKELETAL: No Joint Tenderness; no muscle waisting NEURO: Awake; no lateralizing signs. SKIN: No Rash PSYCH; Normal affect Vitals/I&O's: Vital Signs Temp Pulse Resp BP Pulse Ox 98.0 F 84 18 140/61 H 97 09/29/18 04:00 09/29/18 04:00 09/29/18 04:00 09/29/18 04:00 09/29/18 04:00 Oxygen Flow Rate (L/min) 2 Oxygen Delivery Method Nasal Cannula Weight: 174.6 kg Body Mass Index (BMI) 58.5 Intake and Output for Last 24 Hours 09/27/18 09/28/18 09/29/18 23:59 23:59 23:59 Intake Total 251 / 251 3421 / 3421 240 / 240 Output Total 4650 / 4650 850 / 850 Balance 251 / 251 -1229 / -1229 -610 / -610 Microbiology Past 72 Hours 09/27/18 21:37 Urine Catheter - Catheter Streptococcus pneumoniae Antigen (M - Final 09/27/18 21:37 Urine Catheter - Catheter Legionella Antigen - Final Laboratory Results 09/28/18 11:22: POC Glucose 129 H 09/28/18 16:22: POC Glucose 168 H 09/28/18 22:02: POC Glucose 278 H 09/29/18 06:58: POC Glucose 195 H Current Medications Acetaminophen (Tylenol) 650 mg PO Q6H PRN PRN PRN Reason: Pain/Fever Last Admin: 09/28/18 23:35 Dose: 650 mg Documented by: Albuterol Sulfate (Ventolin Aerosols) 2.5 mg INHALATION Q6H PRN PRN PRN Reason: SOB &/OR WHEEZING Atorvastatin Calcium (Lipitor) 20 mg PO QHS [facility] Last Admin: 09/28/18 22:07 Dose: 20 mg Documented by: Bupropion HCl (Wellbutrin Xl) 150 mg PO BID [facility] Last Admin: 09/28/18 22:07 Dose: 150 mg Documented by: Citalopram Hydrobromide (Celexa) 40 mg PO DAILY [facility] Last Admin: 09/28/18 09:59 Dose: 40 mg Documented by: Cyclobenzaprine HCl (Flexeril) 10 mg PO TID PRN PRN Reason: SPASMS Dextrose (D50w Syringe) 0 gm IV X1 PRN; Protocol PRN Reason: Hypoglycemia Enoxaparin Sodium (Lovenox) 40 mg SC DAILY@1000 [facility] Last Admin: 09/28/18 09:59 Dose: 40 mg Documented by: Famotidine (Pepcid) 20 mg PO QHS [facility] Last Admin: 09/28/18 22:07 Dose: 20 mg Documented by: Gabapentin (Neurontin) 300 mg PO TID [facility] Last Admin: 09/29/18 06:59 Dose: 300 mg Documented by: Glucagon () 1 mg IM .X1 PRN PRN Reason: Hypoglycemia Guaifenesin (Robitussin) 20 ml PO Q4H PRN PRN PRN Reason: COUGH Levofloxacin (Levaquin Iv) 750 mg in 150 mls @ 100 mls/hr IV Q24 [facility] Last Admin: 09/28/18 09:46 Dose: 100 mls/hr Documented by: Sodium Chloride () 250 mls @ 15 mls/hr IV .[id number] PRN PRN Reason: SALINE FLUSH Insulin Glargine (Lantus (Bkc)) 20 units SC QHS [facility] Last Admin: 09/28/18 22:10 Dose: 20 u Documented by: Insulin Human Lispro (Humalog Kwikpen (Bkc)) [facility]; Protocol Last Admin: 09/29/18 06:59 Dose: 2 units Documented by: Ondansetron HCl (Zofran) 4 mg IV Q8H PRN PRN PRN Reason: NAUSEA/V[facility] Last Admin: 09/28/18 16:27 Dose: 20 mg Documented by: Sodium Chloride () 10 - 40 ml IV UD PRN PRN Reason: SALINE FLUSH Last Admin: 09/28/18 09:46 Dose: 10 ml Documented by: Medical Necessity - Tobacco Use Smoking Status: Former smoker Tobacco Use: Cigarettes Assessment/Plan Patient is a 63-year-old lady past medical history significant for COPD who presented with progressive shortness of breath. Imaging studies on admission obtain was consistent with pneumonia. An assessment of sepsis secondary to pneumonia made admitted for further inpatient management. 1. Sepsis secondary to community-acquired pneumonia. Admitted to regular nursing floor started on Levaquin, aerosol treatment as well as supplemental oxygen titrated to keep pulse ox greater than 90 2. Acute on chronic congestive heart failure with unknown EF and echo has been obtained for EF assessment. Did discontinue patient's IV fluids started on Lasix. Results of echo pending 3. COPD with acute exacerbation possibly preceded by #1 added low-dose steroids in addition to treatment described above 4. Chronic hypoxic respiratory failure secondary to COPD patient is on baseline 2 to 3 L of oxygen at home. Did continue with that in addition to breathing treatment 5. Dyslipidemia-patient is on statin therapy, continued at home dose 6. Hypertension-blood pressure controlled, home medications continued with dose adjustment as needed 7. Depression with anxiety patient is on bupropion as well as citalopram did continue 8. Obstructive sleep apnea patient was apparently placed on CPAP she however did not tolerate it 9. Obesity with BMI of 58.5 with loss advised 10. DVT prophylaxis SC Lovenox 11. Hypokalemia corrected per protocol Code Visit Inpatient E&M: 93162 Subs Hosp L2
--- NOTE | 2018-09-29 07:34 | PCM.PN.PUL ---
Subjective: The patient was seen and examined at the bedside this morning. Events from the last 24 hours have been reviewed. The patient is currently afebrile, hemodynamically stable and maintaining appropriate oxygen saturations on 2 L/min via nasal cannula. No overnight events were noted. Objective: The patient's most recent lab work, culture data and imaging studies have all been personally reviewed. Strep and urine Legionella antigens were negative. Blood and urine cultures are pending. - Physical Exam General: Alert, Cooperative, No apparent distress, - - Morbidly obese HEENT: Atraumatic, Normocephalic Oral: No Gingival or Mucosal Lesions/ Ulcerations Neck: Supple, No Nodes, Trachea Midline Lungs: No rhonchi, No wheeze, No rales, Diminished Cardiovascular: Regular rate, Regular Rhythm, Normal S1, Normal S2, No murmurs Abdomen: Bowel Sounds Present, Soft, Obese Extremities: No clubbing, No cyanosis, No edema Skin: - - No significant change from previous Musculoskeletal: No Tenderness to Palpation of Joints or Extremities Lymphatic: No Cervical, Supraclavicular, or Inguinal Adenopathy Neurological: Cranial nerves II-XII grossly intact, Neuro grossly intact Psych/Mental Status: Normal Affect, Appropriate Vital Signs Temp Pulse Resp BP Pulse Ox 98.0 F 84 18 140/61 H 97 09/29/18 04:00 09/29/18 04:00 09/29/18 04:00 09/29/18 04:00 09/29/18 04:00 Oxygen Flow Rate (L/min) 2 Oxygen Delivery Method Nasal Cannula Weight: 384 lb 14.833 oz Body Mass Index (BMI) 58.5 Intake and Output for Last 24 Hours 09/27/18 09/28/18 09/29/18 23:59 23:59 23:59 Intake Total 251 / 251 3421 / 3421 240 / 240 Output Total 4650 / 4650 850 / 850 Balance 251 / 251 -1229 / -1229 -610 / -610 Microbiology Past 72 Hours 09/27/18 21:37 Streptococcus pneumoniae Antigen (M - Final Urine Catheter - Catheter 09/27/18 21:37 Legionella Antigen - Final Urine Catheter - Catheter POC Glucose 09/29/18 09/28/18 09/28/18 06:58 22:02 16:22 POC Glucose 195 H 278 H 168 H 08/16/19 11:22 POC Glucose 129 H Labs (Last 48 Hours) 09/27/18 09/27/18 09/27/18 20:59 20:59 20:59 WBC 15.8 H RBC 5.15 Hgb 13.9 Hct 43.7 MCV 84.9 MCH 27.0 MCHC 31.8 L RDW Std Deviation 49.4 H RDW Coeff of Hemanth 15.7 H Plt Count 247 MPV 8.8 Immature Gran % (Auto) 0.400 Neut % (Auto) 86.4 H Lymph % (Auto) 6.3 L [place] % (Auto) 6.1 Eos % (Auto) 0.6 Baso % (Auto) 0.2 Absolute Neuts (auto) 13.7 H Absolute Lymphs (auto) 1.00 Nucleated RBC % 0 Sodium 134 L Potassium 4.6 Chloride 97 L Carbon Dioxide 35.0 H Anion Gap 2 L BUN 11 Creatinine 0.70 Estim Creat Clear Calc 85.14 Est GFR (MDRD) Af Amer 109 Est GFR (MDRD) Non-Af 90 BUN/Creatinine Ratio 15.6 Glucose 191 H Lactic Acid 1.8 Calcium 9.9 Total Bilirubin 0.50 AST 10 L ALT 14 Alkaline Phosphatase 146 H B-Natriuretic Peptide Total Protein 7.3 Albumin 3.4 Globulin 3.9 Albumin/Globulin Ratio 0.9 Urine Color Urine Clarity Urine pH Ur Specific [place] Urine Protein Urine Glucose (UA) Urine Ketones Urine Occult Blood Urine Nitrite Urine Bilirubin Urine Urobilinogen Ur Leukocyte Esterase Urine RBC Urine WBC Ur Squamous Epith Cells Urine Bacteria Urine Mucus POC Glucose 09/27/18 09/27/18 09/28/18 20:59 21:37 06:00 WBC 17.3 H RBC 4.74 Hgb 12.4 Hct 39.2 MCV 82.7 MCH 26.2 L MCHC 31.6 L RDW Std Deviation 48.6 H RDW Coeff of Hemanth 16.1 H Plt Count 223 MPV 9.2 Immature Gran % (Auto) 0.600 Neut % (Auto) 87.6 H Lymph % (Auto) 6.0 L [place] % (Auto) 5.5 Eos % (Auto) 0.1 Baso % (Auto) 0.2 Absolute Neuts (auto) 15.2 H Absolute Lymphs (auto) 1.04 Nucleated RBC % 0 Sodium Potassium Chloride Carbon Dioxide Anion Gap BUN Creatinine Estim Creat Clear Calc Est GFR (MDRD) Af Amer Est GFR (MDRD) Non-Af BUN/Creatinine Ratio Glucose Lactic Acid Calcium Total Bilirubin AST ALT Alkaline Phosphatase B-Natriuretic Peptide 13.6 Total Protein Albumin Globulin Albumin/Globulin Ratio Urine Color Yellow Urine Clarity Sl. Cloudy Urine pH 6.0 Ur Specific [place] 1.010 Urine Protein Negative Urine Glucose (UA) Normal Urine Ketones 5 H Urine Occult Blood Negative Urine Nitrite Positive H Urine Bilirubin Negative Urine Urobilinogen Normal Ur Leukocyte Esterase 25 H Urine RBC 0 SEEN Urine WBC 0-5 SEEN Ur Squamous Epith Cells 0-5 SEEN Urine Bacteria 3+ Urine Mucus 0 SEEN POC Glucose 09/28/18 09/28/18 09/28/18 06:00 06:45 11:22 WBC RBC Hgb Hct MCV MCH MCHC RDW Std Deviation RDW Coeff of Hemanth Plt Count MPV Immature Gran % (Auto) Neut % (Auto) Lymph % (Auto) [place] % (Auto) Eos % (Auto) Baso % (Auto) Absolute Neuts (auto) Absolute Lymphs (auto) Nucleated RBC % Sodium 136 Potassium 4.2 Chloride 101 Carbon Dioxide 30.0 Anion Gap 5 BUN 12 Creatinine 0.71 Estim Creat Clear Calc 83.94 Est GFR (MDRD) Af Amer 107 Est GFR (MDRD) Non-Af 88 BUN/Creatinine Ratio 16.8 Glucose 110 H Lactic Acid Calcium 8.8 Total Bilirubin AST ALT Alkaline Phosphatase B-Natriuretic Peptide Total Protein Albumin Globulin Albumin/Globulin Ratio Urine Color Urine Clarity Urine pH Ur Specific [place] Urine Protein Urine Glucose (UA) Urine Ketones Urine Occult Blood Urine Nitrite Urine Bilirubin Urine Urobilinogen Ur Leukocyte Esterase Urine RBC Urine WBC Ur Squamous Epith Cells Urine Bacteria Urine Mucus POC Glucose 100 129 H 09/28/18 09/28/18 09/29/18 16:22 22:02 06:58 WBC RBC Hgb Hct MCV MCH MCHC RDW Std Deviation RDW Coeff of Hemanth Plt Count MPV Immature Gran % (Auto) Neut % (Auto) Lymph % (Auto) [place] % (Auto) Eos % (Auto) Baso % (Auto) Absolute Neuts (auto) Absolute Lymphs (auto) Nucleated RBC % Sodium Potassium Chloride Carbon Dioxide Anion Gap BUN Creatinine Estim Creat Clear Calc Est GFR (MDRD) Af Amer Est GFR (MDRD) Non-Af BUN/Creatinine Ratio Glucose Lactic Acid Calcium Total Bilirubin AST ALT Alkaline Phosphatase B-Natriuretic Peptide Total Protein Albumin Globulin Albumin/Globulin Ratio Urine Color Urine Clarity Urine pH Ur Specific [place] Urine Protein Urine Glucose (UA) Urine Ketones Urine Occult Blood Urine Nitrite Urine Bilirubin Urine Urobilinogen Ur Leukocyte Esterase Urine RBC Urine WBC Ur Squamous Epith Cells Urine Bacteria Urine Mucus POC Glucose 168 H 278 H 195 H Microbiology 09/27/18 21:37 Urine Catheter - Catheter Streptococcus pneumoniae Antigen (M - Final 09/27/18 21:37 Urine Catheter - Catheter Legionella Antigen - Final Clinical Impression(s) from Imaging Studies Chest X-Ray 09/27/18 20:50 IMPRESSION: Mild increased opacity bilaterally, concerning for pneumonia. Electronically Signed: Lynn Villar MD at 21:12 EDT Tel , Service support , Medical Necessity - Tobacco Use Smoking Status: Former smoker Tobacco Use: Cigarettes Assessment/Plan RECOMMENDATIONS: 1. Continue baseline supplemental oxygen. Encourage incentive spirometer use while in bed. 2. If the patient's cough becomes productive, please send sputum for culture. 3. Continue antibiotic as ordered, pending infectious work-up. 4. Continue scheduled bronchodilators and steroids. I would plan to stop the prednisone completely after 5 days. 5. Mobilize patient as tolerated. 6. The patient should have close interval follow-up with her primary server cashier, Dr. Olmedo, upon discharge from the hospital. IMPRESSIONS: 1. COPD/asthma exacerbation, likely secondary to community-acquired pneumonia/chronic hypoxemic respiratory failure The patient has a self-reported history of COPD/asthma of unknown severity, for which she is followed by Dr. Olmedo on an outpatient basis in [place]. She does report that her breathing quality is relatively controlled at her baseline with the use of Advair Diskus and as needed albuterol. She was last seen by her server cashier 2 months ago. She does report that her insurance company is no longer covering her Advair and she is in need of an alternative medication to take its place. She has a baseline supplemental oxygen requirement of 2 to 3 L. While the patient does endorse the presence of shortness of breath, she is currently maintaining saturations on her baseline supplemental oxygen requirement. She does have a cough, but has been unable to produce any sputum. I would recommend that if the patient's cough does become productive, to send a sample for culture. I agree with continuing empiric antimicrobials and bronchodilators for now. A 7-day treatment course of antibiotics would be adequate to cover for potential community-acquired pneumonia/cystitis. I would also plan to complete a 5-day burst of prednisone. The patient will require close interval follow-up with her primary server cashier upon discharge from the hospital. 2. Congestive heart failure Unclear if the patient has diastolic or systolic mediated congestive heart failure. Echocardiogram is currently pending. She may also have a component of underlying pulmonary hypertension due to her underlying lung disease and noncompliance with treatment for obstructive sleep apnea. Recommend continuing outpatient diuretic regimen. 3. Obstructive sleep apnea The patient has known severe obstructive sleep apnea but has been noncompliant with the use of nocturnal BiPAP therapy for quite some time. She is not currently interested in pursuing any additional work-up or treatment for this issue. 4. Morbid obesity/hypertension/hyperlipidemia/depression/tobacco dependency, in remission/diabetes mellitus Complicates care, management, recovery and prognosis. Continue home medications as indicated. This note was generated with [employer] dictation software. It may contain incorrect words, spelling, and punctuation that were not noted in checking the note before signing. Code Visit Inpatient E&M: 74954 Subs Hosp L2
[2018-09-29 08:01] LABS: Absolute Lymphocyte Count 1.28 X10^3/uL (0.83-4.51); Absolute Neutrophil Count 11.9 X10^3/uL (2.0-7.7); Basophil# 0.02 X10^3/uL; Basophil% 0.1 % (0-1); Eosinophil# 0.01 X10^3/uL; Eosinophils% 0.1 % (0-5); Hematocrit 41.5 % (37-47); Hemoglobin 12.8 g/dL (12.0-15.0); Lymphocyte # 1.28 X10^3/ul (4.0); Mean Corp Hgb Conc 30.8 g/dL (32-36); Mean Corpuscular Volume 84.3 fL (81-99); Mean Platelet Vol. 8.9 fl (6.2-12.0); Monocyte# 0.97 X10^3/uL; Monocyte% 6.8 % (0-10); NRBC Flagged by Analyzer 0 % (0-5); Neutrophil # 11.88 X10^3/uL (2.7-7.7); Neutrophil % 83.4 % (47-70); Platelet Count 216 K/mm3 (150-450); RBC Distribution Width CV 16.6 % (11.6-14.6); RBC Distribution Width SD 51.7 fl (35.1-43.9); Red Blood Count 4.92 M/mm3 (4.2-5.4); White Blood Count 14.2 K/mm3 (4.4-11.0)
[2018-09-29 08:11] LABS: Anion Gap 4 (5-15); BUN 12 mg/dL (7-18); BUN/Creat Ratio 19.5 RATIO (10-20); Calcium,Total 9.5 mg/dL (8.5-10.1); Chloride 100 mmol/L (98-107); Creatinine, Serum 0.61 mg/dL (0.55-1.02); EST Glomerular Filtration Rate 105 mL/min (>60); Est Glom Filt Rate - Afr Amer 127 mL/min (>60); Glucose 183 mg/dL (74-106); Magnesium 1.9 mg/dL (1.6-2.6); Potassium 3.3 mmol/L (3.5-5.1); Sodium Level 138 mmol/L (136-145)
[2018-09-29] MEDS: Furosemide 100 MG/10 ML Vial 80 MG IV (09:33)
[2018-09-29] MEDS: levoFLOXacin IV 750 MG/150 ML BAG 100 MG IV (09:33)
[2018-09-29] MEDS: Citalopram 40 MG TABLET PO (09:34)
[2018-09-29] MEDS: predniSONE 20 MG Tablet PO ×2 (09:34→17:25)
[2018-09-29] MEDS: buPROPion (XL) 150 MG TABLET.XL PO ×2 (09:34→21:19)
[2018-09-29] MEDS: Enoxaparin 40 MG/0.4 ML Syringe SC (09:34)
[2018-09-29 11:46] LABS: Bedside Glucose 199 mg/dL (70-110)
[2018-09-29] MEDS: cycloBENZAPRine HCl 10 MG Tablet PO ×2 (13:30→19:40)
[2018-09-29] MEDS: Acetaminophen 325 MG Tablet 650 MG PO ×2 (13:35→19:40)
[2018-09-29 17:36] LABS: Bedside Glucose 354 mg/dL (70-110)
[2018-09-29] MEDS: Atorvastatin Calcium 20 MG Tablet PO (21:19)
[2018-09-29] MEDS: Famotidine 20 MG Tablet PO (21:20)
[2018-09-29 21:56] LABS: Bedside Glucose 395 mg/dL (70-110)
[2018-09-30] VITALS (12 sets, daily range): BP systolic 148–159; BP diastolic 64–94; PULSE 69–97; RESP 18; TEMP 36.4–36.6; O2SAT 93–96
[2018-09-30 06:11] LABS: Absolute Lymphocyte Count 1.58 X10^3/uL (0.83-4.51); Absolute Neutrophil Count 10.3 X10^3/uL (2.0-7.7); Basophil# 0.02 X10^3/uL; Basophil% 0.2 % (0-1); Hematocrit 41.7 % (37-47); Hemoglobin 12.7 g/dL (12.0-15.0); Lymphocyte # 1.58 X10^3/ul (4.0); Lymphocyte % 12.7 % (19-41); Mean Corp Hgb Conc 30.5 g/dL (32-36); Mean Corpuscular Volume 85.3 fL (81-99); Monocyte# 0.47 X10^3/uL; Monocyte% 3.8 % (0-10); NRBC Flagged by Analyzer 0 % (0-5); Neutrophil # 10.34 X10^3/uL (2.7-7.7); Neutrophil % 82.7 % (47-70); Platelet Count 245 K/mm3 (150-450); RBC Distribution Width CV 16.4 % (11.6-14.6); RBC Distribution Width SD 51.6 fl (35.1-43.9); Red Blood Count 4.89 M/mm3 (4.2-5.4); White Blood Count 12.5 K/mm3 (4.4-11.0)
[2018-09-30 06:24] LABS: Anion Gap 4 (5-15); BUN 15 mg/dL (7-18); BUN/Creat Ratio 22.8 RATIO (10-20); Calcium,Total 9.7 mg/dL (8.5-10.1); Chloride 99 mmol/L (98-107); Creatinine, Serum 0.66 mg/dL (0.55-1.02); EST Glomerular Filtration Rate 97 mL/min (>60); Est Glom Filt Rate - Afr Amer 117 mL/min (>60); Glucose 279 mg/dL (74-106); Potassium 4.2 mmol/L (3.5-5.1); Sodium Level 139 mmol/L (136-145)
--- NOTE | 2018-09-30 06:29 | PN_ITS ---
Subjective: The patient was seen and examined at the bedside this morning. Events from the last 24 hours have been reviewed. The patient is currently afebrile, hemodynamically stable and maintaining appropriate oxygen saturations on 2 L/min via nasal cannula. There has been some interval improvement in the patient's overall breathing quality since admission to the hospital. Objective: The patient's most recent lab work, culture data and imaging studies have all been personally reviewed. Strep and urine Legionella antigens were both negative. Blood and urine cultures are pending. - Physical Exam General: Alert, Cooperative, No apparent distress, - - Morbidly obese HEENT: Atraumatic, PERRLA, Normocephalic Oral: No Gingival or Mucosal Lesions/ Ulcerations Neck: Supple, No Nodes, Trachea Midline Lungs: No rhonchi, No wheeze, No rales, Diminished Cardiovascular: Regular rate, Regular Rhythm, Normal S1, Normal S2, No murmurs Abdomen: Bowel Sounds Present, Soft, Non Tender, Obese Extremities: No clubbing, No cyanosis, No edema Skin: No breakdown Musculoskeletal: No Tenderness to Palpation of Joints or Extremities, No Muscle Wasting Lymphatic: No Cervical, Supraclavicular, or Inguinal Adenopathy Neurological: Cranial nerves II-XII grossly intact, Neuro grossly intact Psych/Mental Status: Normal Affect, Appropriate Vital Signs Temp Pulse Resp BP Pulse Ox 97.7 F L 88 18 150/80 H 93 09/30/18 03:25 09/30/18 03:25 09/30/18 03:25 09/30/18 03:25 09/30/18 03:25 Oxygen Flow Rate (L/min) 2 Oxygen Delivery Method Nasal Cannula Weight: 384 lb 14.833 oz Body Mass Index (BMI) 58.5 Intake and Output for Last 24 Hours 09/28/18 09/29/18 09/30/18 23:59 23:59 23:59 Intake Total 3421 / 3421 240 / 240 240 / 240 Output Total 4650 / 4650 3750 / 3750 650 / 650 Balance -1229 / -1229 -3510 / -3510 -410 / -410 Microbiology Past 72 Hours 09/27/18 21:37 Streptococcus pneumoniae Antigen (M - Final Urine Catheter - Catheter 09/27/18 21:37 Legionella Antigen - Final Urine Catheter - Catheter Laboratory Tests Past 24 Hrs 08/09/29/18 09/30/18 07:45 07:45 05:36 WBC 14.2 H 12.5 H RBC 4.92 4.89 Hgb 12.8 12.7 Hct 41.5 41.7 MCV 84.3 85.3 MCH 26.0 L 26.0 L MCHC 30.8 L 30.5 L RDW Std Deviation 51.7 H 51.6 H RDW Coeff of Hemanth 16.6 H 16.4 H Plt Count 216 245 MPV 8.9 9.0 Immature Gran % (Auto) 0.600 0.600 Neut % (Auto) 83.4 H 82.7 H Lymph % (Auto) 9.0 L 12.7 L [place] % (Auto) 6.8 3.8 Eos % (Auto) 0.1 0.0 Baso % (Auto) 0.1 0.2 Absolute Neuts (auto) 11.9 H 10.3 H Absolute Lymphs (auto) 1.28 1.58 Nucleated RBC % 0 0 Sodium 138 Potassium 3.3 L Chloride 100 Carbon Dioxide 34.0 H Anion Gap 4 L BUN 12 Creatinine 0.61 Estim Creat Clear Calc 97.70 Est GFR (MDRD) Af Amer 127 Est GFR (MDRD) Non-Af 105 BUN/Creatinine Ratio 19.5 Glucose 183 H Calcium 9.5 Magnesium 1.9 09/30/18 05:36 WBC RBC Hgb Hct MCV MCH MCHC RDW Std Deviation RDW Coeff of Hemanth Plt Count MPV Immature Gran % (Auto) Neut % (Auto) Lymph % (Auto) [place] % (Auto) Eos % (Auto) Baso % (Auto) Absolute Neuts (auto) Absolute Lymphs (auto) Nucleated RBC % Sodium 139 Potassium 4.2 Chloride 99 Carbon Dioxide 36.0 H Anion Gap 4 L BUN 15 Creatinine 0.66 Estim Creat Clear Calc 90.30 Est GFR (MDRD) Af Amer 117 Est GFR (MDRD) Non-Af 97 BUN/Creatinine Ratio 22.8 H Glucose 279 H Calcium 9.7 Magnesium POC Glucose 09/29/18 09/29/18 09/29/18 21:16 17:23 11:17 POC Glucose 395 H 354 H 199 H 09/29/18 06:58 POC Glucose 195 H Clinical Impression(s) from Imaging Studies Chest X-Ray 09/27/18 20:50 IMPRESSION: Mild increased opacity bilaterally, concerning for pneumonia. Electronically Signed: Lynn Villar MD at 21:12 EDT Tel , Service support , Medical Necessity - Tobacco Use Smoking Status: Former smoker Tobacco Use: Cigarettes Assessment/Plan RECOMMENDATIONS: 1. Continue baseline supplemental oxygen. Encourage incentive spirometer use while in bed. 2. If the patient's cough becomes productive, please send sputum for culture. 3. Continue antibiotic as ordered, pending infectious work-up. 4. Continue scheduled bronchodilators and steroids. I would plan to stop the prednisone completely after 5 days. 5. Mobilize patient as tolerated. 6. The patient should have close interval follow-up with her primary director veterinary, Dr. Olmedo, upon discharge from the hospital. IMPRESSIONS: 1. COPD/asthma exacerbation, likely secondary to community-acquired pneumonia/chronic hypoxemic respiratory failure The patient has a self-reported history of COPD/asthma of unknown severity, for which she is followed by Dr. Olmedo on an outpatient basis in [place]. She does report that her breathing quality is relatively controlled at her baseline with the use of Advair Diskus and as needed albuterol. She was last seen by her director veterinary 2 months ago. She does report that her insurance company is no longer covering her Advair and she is in need of an alternative medication to take its place. She has a baseline supplemental oxygen requirement of 2 to 3 L. While the patient does endorse the presence of shortness of breath, she is currently maintaining saturations on her baseline supplemental oxygen requirement. She does have a cough, but has been unable to produce any sputum. I would recommend that if the patient's cough does become productive, to send a sample for culture. I agree with continuing empiric antimicrobials and bronchodilators for now. A 7-day treatment course of antibiotics would be adequate to cover for potential community-acquired pneumonia/cystitis. I would also plan to complete a 5-day burst of prednisone. The patient will require close interval follow-up with her primary director veterinary upon discharge from the hospital. 2. Congestive heart failure Unclear if the patient has diastolic or systolic mediated congestive heart failure. Echocardiogram is currently pending. She may also have a component of underlying pulmonary hypertension due to her underlying lung disease and noncompliance with treatment for obstructive sleep apnea. Recommend continuing outpatient diuretic regimen. 3. Obstructive sleep apnea The patient has known severe obstructive sleep apnea but has been noncompliant with the use of nocturnal BiPAP therapy for quite some time. She is not currently interested in pursuing any additional work-up or treatment for this issue. 4. Morbid obesity/hypertension/hyperlipidemia/depression/tobacco dependency, in remission/diabetes mellitus Complicates care, management, recovery and prognosis. Continue home medications as indicated. This note was generated with [employer] dictation software. It may contain incorrect words, spelling, and punctuation that were not noted in checking the note before signing. Code Visit Inpatient E&M: 44929 Subs Hosp L2
[2018-09-30] MEDS: Gabapentin 300 MG Capsule PO ×3 (07:10→21:54)
[2018-09-30] MEDS: Insulin Lispro 100 UNIT/ML INSULN.PEN SC ×4 (07:10→21:54)
[2018-09-30 07:21] LABS: Bedside Glucose 235 mg/dL (70-110)
--- NOTE | 2018-09-30 07:27 | PCM.PN.HOSP ---
Subjective: Patient seen complains of low back pain. She states that she apparently strained her back while trying to reach for a cup. Her breathing status continues to improve. Ordered a 2D echo which is scheduled to be performed on 10/01/2018. Patient has also been seen by PT and case management and plan is for patient to be transferred to retirement facility pending bed availability Objective: GENERAL: cooperative HEENT: Atraumatic; EYES; Anicteric, Normal Conjunctiva NECK; supple, normal thyroid, RESPIRATORY: Diminished to auscultation CARDIOVASCULAR: Regular S1 S2, GI: soft, non-tender, normoactive bowel sounds, : No Renal angle tenderness; EXTREMITIES: No edema, no clubbing, MUSCULOSKELETAL: No Joint Tenderness; NEURO: Awake; no lateralizing signs. SKIN: No Rash PSYCH; flat affect Vitals/I&O's: Vital Signs Temp Pulse Resp BP Pulse Ox 97.7 F L 88 18 150/80 H 93 09/30/18 03:25 09/30/18 03:25 09/30/18 03:25 09/30/18 03:25 09/30/18 03:25 Oxygen Flow Rate (L/min) 2 Oxygen Delivery Method Nasal Cannula Weight: 174.6 kg Body Mass Index (BMI) 58.5 Intake and Output for Last 24 Hours 09/28/18 09/29/18 09/30/18 23:59 23:59 23:59 Intake Total 3421 / 3421 240 / 240 480 / 480 Output Total 4650 / 4650 3750 / 3750 1450 / 1450 Balance -1229 / -1229 -3510 / -3510 -970 / -970 Microbiology Past 72 Hours 09/27/18 21:37 Urine Catheter - Catheter Streptococcus pneumoniae Antigen (M - Final 09/27/18 21:37 Urine Catheter - Catheter Legionella Antigen - Final Laboratory Results 09/29/18 07:45: WBC 14.2 H, RBC 4.92, Hgb 12.8, Hct 41.5, MCV 84.3, MCH 26.0 L, MCHC 30.8 L, RDW Std Deviation 51.7 H, RDW Coeff of Hemanth 16.6 H, Plt Count 216, MPV 8.9, Immature Gran % (Auto) 0.600, Neut % (Auto) 83.4 H, Lymph % (Auto) 9.0 L, [place] % (Auto) 6.8, Eos % (Auto) 0.1, Baso % (Auto) 0.1, Absolute Neuts (auto) 11.9 H, Absolute Lymphs (auto) 1.28, Nucleated RBC % 0 09/29/18 07:45: Sodium 138, Potassium 3.3 L, Chloride 100, Carbon Dioxide 34.0 H, Anion Gap 4 L, BUN 12, Creatinine 0.61, Estim Creat Clear Calc 97.70, Est GFR (MDRD) Af Amer 127, Est GFR (MDRD) Non-Af 105, BUN/Creatinine Ratio 19.5, Glucose 183 H, Calcium 9.5, Magnesium 1.9 09/29/18 11:17: POC Glucose 199 H 09/29/18 17:23: POC Glucose 354 H 09/29/18 21:16: POC Glucose 395 H 09/30/18 05:36: WBC 12.5 H, RBC 4.89, Hgb 12.7, Hct 41.7, MCV 85.3, MCH 26.0 L, MCHC 30.5 L, RDW Std Deviation 51.6 H, RDW Coeff of Hemanth 16.4 H, Plt Count 245, MPV 9.0, Immature Gran % (Auto) 0.600, Neut % (Auto) 82.7 H, Lymph % (Auto) 12.7 L, [place] % (Auto) 3.8, Eos % (Auto) 0.0, Baso % (Auto) 0.2, Absolute Neuts (auto) 10.3 H, Absolute Lymphs (auto) 1.58, Nucleated RBC % 0 09/30/18 05:36: Sodium 139, Potassium 4.2, Chloride 99, Carbon Dioxide 36.0 H, Anion Gap 4 L, BUN 15, Creatinine 0.66, Estim Creat Clear Calc 90.30, Est GFR (MDRD) Af Amer 117, Est GFR (MDRD) Non-Af 97, BUN/Creatinine Ratio 22.8 H, Glucose 279 H, Calcium 9.7 09/30/18 07:09: POC Glucose 235 H Current Medications Acetaminophen (Tylenol) 650 mg PO Q6H PRN PRN PRN Reason: Pain/Fever Last Admin: 09/29/18 19:40 Dose: 650 mg Documented by: Albuterol Sulfate (Ventolin Aerosols) 2.5 mg INHALATION Q6H PRN PRN PRN Reason: SOB &/OR WHEEZING Atorvastatin Calcium (Lipitor) 20 mg PO QHS [facility] Last Admin: 09/29/18 21:19 Dose: 20 mg Documented by: Bupropion HCl (Wellbutrin Xl) 150 mg PO BID [facility] Last Admin: 09/29/18 21:19 Dose: 150 mg Documented by: Citalopram Hydrobromide (Celexa) 40 mg PO DAILY [facility] Last Admin: 09/29/18 09:34 Dose: 40 mg Documented by: Cyclobenzaprine HCl (Flexeril) 10 mg PO TID PRN PRN Reason: SPASMS Last Admin: 09/29/18 19:40 Dose: 10 mg Documented by: Dextrose (D50w Syringe) 0 gm IV X1 PRN; Protocol PRN Reason: Hypoglycemia Enoxaparin Sodium (Lovenox) 40 mg SC DAILY@1000 [facility] Last Admin: 09/29/18 09:34 Dose: 40 mg Documented by: Famotidine (Pepcid) 20 mg PO QHS [facility] Last Admin: 09/29/18 21:20 Dose: 20 mg Documented by: Gabapentin (Neurontin) 300 mg PO TID [facility] Last Admin: 09/30/18 07:10 Dose: 300 mg Documented by: Glucagon () 1 mg IM .X1 PRN PRN Reason: Hypoglycemia Guaifenesin (Robitussin) 20 ml PO Q4H PRN PRN PRN Reason: COUGH Levofloxacin (Levaquin Iv) 750 mg in 150 mls @ 100 mls/hr IV Q24 [facility] Last Admin: 09/29/18 09:33 Dose: 100 mls/hr Documented by: Sodium Chloride () 250 mls @ 15 mls/hr IV .[id number] PRN PRN Reason: SALINE FLUSH Insulin Glargine (Lantus (Bkc)) 20 units SC QHS [facility] Last Admin: 09/29/18 21:19 Dose: 20 u Documented by: Insulin Human Lispro (Humalog Kwikpen (Bkc)) 0 unit SC ACHS [facility]; Protocol Last Admin: 09/30/18 07:10 Dose: 3 units Documented by: Ondansetron HCl (Zofran) 4 mg IV Q8H PRN PRN PRN Reason: NAUSEA/VOMITING Potassium Chloride (K-Dur) 20 meq PO BIDCM [facility]ASELI Last Admin: 09/29/18 17:25 Dose: 20 meq Documented by: Prednisone () 20 mg PO BIDCM ARASELI Last Admin: 09/29/18 17:25 Dose: 20 mg Documented by: Sodium Chloride () 10 - 40 ml IV UD PRN PRN Reason: SALINE FLUSH Last Admin: 09/28/18 09:46 Dose: 10 ml Documented by: Medical Necessity - Tobacco Use Smoking Status: Former smoker Tobacco Use: Cigarettes Assessment/Plan Patient is a 63-year-old lady past medical history significant for COPD who presented with progressive shortness of breath. Imaging studies on admission obtain was consistent with pneumonia. An assessment of sepsis secondary to pneumonia made admitted for further inpatient management. 1. Sepsis secondary to community-acquired pneumonia. Admitted to regular nursing floor started on Levaquin, aerosol treatment as well as supplemental oxygen titrated to keep pulse ox greater than 90 and cultures have remained negative to date. 2. Acute on chronic congestive heart failure with unknown EF and echo has been obtained for EF assessment (echo scheduled to be performed on 10/01/2017. Did give additional IV Lasix doses with significant response. 3. COPD with acute exacerbation possibly preceded by #1 added low-dose steroids in addition to treatment described above 4. Chronic hypoxic respiratory failure secondary to COPD patient is on baseline 2 to 3 L of oxygen at home. Did continue with that in addition to breathing treatment 5. Dyslipidemia-patient is on statin therapy, continued at home dose 6. Hypertension-blood pressure controlled, home medications continued with dose adjustment as needed 7. Depression with anxiety patient is on bupropion as well as citalopram did continue 8. Obstructive sleep apnea patient was apparently placed on CPAP she however did not tolerate it 9. Obesity with BMI of 58.5 with loss advised 10. DVT prophylaxis SC Lovenox 11. Hypokalemia corrected per protocol 12. Physical deconditioning requested for PT OT plan is for patient to be transferred to retirement facility pending bed availability. 13. Low back pain; pain meds plus muscle relaxant Code Visit Inpatient E&M: 69847 Subs Hosp L2
--- NOTE | 2018-09-30 08:11 | ECHOCS_ITS ---
Reason For Study: CHF Procedure This was a 2D Doppler, Color Flow transthoracic echocardiogram. The study was technically difficult. Contrast injection was performed. Exam performed portable in patient room. Left Ventricle Normal LV size. The estimated ejection fraction is 47 %. Stage 2 diastolic dysfunction. There is mild global hypokinesis of the left ventricle. Right Ventricle Normal RV size. Normal systolic function. Atria The left atrium is mildly enlarged. Normal right atrium. Mitral Valve Normal mitral valve. Tricuspid Valve Normal tricuspid valve. Mild (1+) tricuspid valve insufficiency. Pulmonary artery systolic pressure is 42 mmHg. Aortic Valve Normal aortic valve. Pulmonic Valve Normal pulmonic valve. Great Vessels Normal aortic root. The pulmonary artery is normal size. Normal inferior vena cava. Pericardium/Pleural No pericardial effusion. Medication Diluted definity 4.5ml given slow IV push to enhance endocardial definition. MMode/2D Measurements & Calculations LVIDd: 5.7 cm IVSd: 0.87 cm Ao root diam: 3.7 cm LVIDs: 4.3 cm LVPWd: 1.00 cm RVDd: 4.5 cm FS: 24.1 % LAV(MOD-bp): 90.6 ml LA A4 area: 25.5 cm2 LA dimension(2D): 3.7 cm LAV(MOD-bp) Indexed: 33.6 ml/m2 LAV(MOD-sp2): 86.8 ml LAV(MOD-sp4): 88.5 ml RA A4 area: 19.5 cm2 Time Measurements MV dec time: 0.18 sec Doppler Measurements & Calculations MV E max richard: 94.1 cm/sec Lat Peak E' Richard: 9.3 cm/sec Med Peak E' Richard: 8.9 cm/sec MV A max richard: 80.5 cm/sec E/E' lat: 10.1 E/E' med: 10.6 MV E/A: 1.2 Ao V2 max: 148.8 cm/sec LV V1 max: 131.0 cm/sec TR max richard: 304.2 cm/sec Ao max P.9 mmHg LV V1 max P.9 mmHg TR max P.5 mmHg Interpretation Summary Normal LV size. The estimated ejection fraction is 47 %. Stage 2 diastolic dysfunction. The left atrium is mildly enlarged. Pulmonary artery systolic pressure is 42 mmHg. Ordering Physician: Marcos Jackson Referring Physician: ANDREY HENRY Performed By: Marcia Pruett, SIRICS, RVT
[2018-09-30] MEDS: buPROPion (XL) 150 MG TABLET.XL PO ×2 (08:19→21:54)
[2018-09-30] MEDS: predniSONE 20 MG Tablet PO ×2 (08:19→16:28)
[2018-09-30] MEDS: Citalopram 40 MG TABLET PO (08:20)
[2018-09-30] MEDS: cycloBENZAPRine HCl 10 MG Tablet PO ×2 (08:23→20:26)
[2018-09-30] MEDS: Acetaminophen 325 MG Tablet 650 MG PO ×2 (08:23→20:26)
[2018-09-30] MEDS: Enoxaparin 40 MG/0.4 ML Syringe SC (08:24)
[2018-09-30] MEDS: levoFLOXacin 750 MG Tablet PO (09:49)
[2018-09-30] MEDS: 0.9% NaCl Peripheral Flush Adult/Peds IV (09:54)
[2018-09-30 12:01] LABS: Bedside Glucose 243 mg/dL (70-110)
[2018-09-30 16:50] LABS: Bedside Glucose 346 mg/dL (70-110)
[2018-09-30] MEDS: Fluconazole 100 MG Tablet 200 MG PO (20:26)
[2018-09-30] MEDS: Famotidine 20 MG Tablet PO (21:54)
[2018-09-30] MEDS: Atorvastatin Calcium 20 MG Tablet PO (21:54)
[2018-09-30 22:11] LABS: Bedside Glucose 397 mg/dL (70-110)
[2018-10-01] VITALS (11 sets, daily range): BP systolic 133–152; BP diastolic 70–89; PULSE 74–111; RESP 14–18; TEMP 36.5–36.7; O2SAT 80–98
[2018-10-01] MEDS: cycloBENZAPRine HCl 10 MG Tablet PO ×2 (02:33→20:50)
[2018-10-01] MEDS: Acetaminophen 325 MG Tablet 650 MG PO ×3 (02:33→20:50)
[2018-10-01] MEDS: Gabapentin 300 MG Capsule PO ×3 (06:23→21:06)
[2018-10-01] MEDS: levoFLOXacin 750 MG Tablet PO (06:23)
[2018-10-01 06:25] LABS: Absolute Lymphocyte Count 1.51 X10^3/uL (0.83-4.51); Absolute Neutrophil Count 6.7 X10^3/uL (2.0-7.7); Basophil# 0.02 X10^3/uL; Basophil% 0.2 % (0-1); Eosinophil# 0.01 X10^3/uL; Eosinophils% 0.1 % (0-5); Hematocrit 40.6 % (37-47); Hemoglobin 12.8 g/dL (12.0-15.0); Lymphocyte # 1.51 X10^3/ul (4.0); Lymphocyte % 16.9 % (19-41); Mean Corp Hgb Conc 31.5 g/dL (32-36); Mean Corpuscular Hgb 26.7 pg (27.0-32.0); Mean Corpuscular Volume 84.6 fL (81-99); Mean Platelet Vol. 8.8 fl (6.2-12.0); Monocyte# 0.59 X10^3/uL; Monocyte% 6.6 % (0-10); NRBC Flagged by Analyzer 0 % (0-5); Neutrophil # 6.74 X10^3/uL (2.7-7.7); Neutrophil % 75.8 % (47-70); Platelet Count 242 K/mm3 (150-450); RBC Distribution Width CV 16.1 % (11.6-14.6); RBC Distribution Width SD 50.5 fl (35.1-43.9); White Blood Count 8.9 K/mm3 (4.4-11.0)
[2018-10-01 06:34] LABS: Anion Gap 3 (5-15); BUN 18 mg/dL (7-18); BUN/Creat Ratio 28.1 RATIO (10-20); Calcium,Total 9.9 mg/dL (8.5-10.1); Chloride 99 mmol/L (98-107); Creatinine, Serum 0.64 mg/dL (0.55-1.02); EST Glomerular Filtration Rate 100 mL/min (>60); Est Glom Filt Rate - Afr Amer 121 mL/min (>60); Estimated Creatinine Clearance 93.12 ml/min; Glucose 260 mg/dL (74-106); Potassium 4.4 mmol/L (3.5-5.1); Sodium Level 137 mmol/L (136-145)
[2018-10-01] MEDS: Insulin Lispro 100 UNIT/ML INSULN.PEN SC ×3 (06:56→16:15)
[2018-10-01 07:10] LABS: Bedside Glucose 259 mg/dL (70-110)
[2018-10-01] MEDS: predniSONE 20 MG Tablet PO ×2 (08:10→16:14)
[2018-10-01] MEDS: Citalopram 40 MG TABLET PO (08:10)
[2018-10-01] MEDS: buPROPion (XL) 150 MG TABLET.XL PO ×2 (08:10→22:04)
[2018-10-01] MEDS: Enoxaparin 40 MG/0.4 ML Syringe SC (08:10)
[2018-10-01] MEDS: Senna/Docusate Sodium 1 Tablet PO (08:46)
--- NOTE | 2018-10-01 09:41 | CASEMGMT ---
CHRISTY called [facility] and left a message for [facility] in admissions. CHRISTY also faxed her updates on patient. Sharon BROWN MSW
--- NOTE | 2018-10-01 10:22 | PN_ITS ---
Subjective: Patient did well overnight. No acute issues were reported. Patient subjectively feels improved compared to previous. Patient does have a pure wick catheter device in place. Patient is still requiring supplemental oxygen to maintain appropriate saturations. Did discuss with patient about her reported penicillin allergy. Patient reports that she does not believe she has hives, but has had diarrhea in the past. General: Alert, Oriented x3, Cooperative, No apparent distress, Well developed, Well nourished, - - Morbidly obese. HEENT: Atraumatic, PERRLA, EOMI, Normocephalic, - - No scleral icterus or injection noted. Oral: Moist Mucosa, No Gingival or Mucosal Lesions/ Ulcerations Neck: Supple, No JVD, No Nodes, Trachea Midline Lungs: No rhonchi, No wheeze, No rales, Diminished Cardiovascular: Regular rate, Regular Rhythm, Normal S1, Normal S2, No murmurs, No rub noted, No Gallop Abdomen: Bowel Sounds Present, Soft, Non Tender, Non-Distended, Obese Extremities: No clubbing, No cyanosis, Edema Skin: No breakdown Musculoskeletal: No Tenderness to Palpation of Joints or Extremities Lymphatic: No Cervical, Supraclavicular, or Inguinal Adenopathy Neurological: Cranial nerves II-XII grossly intact, Neuro grossly intact, Motor Exam 5/5 strength throughout Psych/Mental Status: Alert and oriented to time, place, person, mood and affect Vital Signs Temp Pulse Resp BP Pulse Ox 36.5 C L 88 17 144/70 H 94 10/01/18 09:15 10/01/18 09:15 10/01/18 09:15 10/01/18 09:15 10/01/18 09:15 Oxygen Flow Rate (L/min) 2 Oxygen Delivery Method Nasal Cannula Weight: 174.6 kg Body Mass Index (BMI) 58.5 Intake and Output for Last 24 Hours 09/29/18 09/30/18 10/01/18 23:59 23:59 23:59 Intake Total 240 / 240 1280 / 1280 480 / 480 Output Total 3750 / 3750 3025 / 3025 1875 / 1875 Balance -3510 / -3510 -1745 / -1745 -1395 / -1395 Labs (Last 48 Hours) 09/29/18 09/29/18 09/29/18 11:17 17:23 21:16 WBC RBC Hgb Hct MCV MCH MCHC RDW Std Deviation RDW Coeff of Hemanth Plt Count MPV Immature Gran % (Auto) Neut % (Auto) Lymph % (Auto) Lares % (Auto) Eos % (Auto) Baso % (Auto) Absolute Neuts (auto) Absolute Lymphs (auto) Nucleated RBC % Sodium Potassium Chloride Carbon Dioxide Anion Gap BUN Creatinine Estim Creat Clear Calc Est GFR (MDRD) Af Amer Est GFR (MDRD) Non-Af BUN/Creatinine Ratio Glucose Calcium POC Glucose 199 H 354 H 395 H 09/30/18 09/30/18 09/30/18 05:36 05:36 07:09 WBC 12.5 H RBC 4.89 Hgb 12.7 Hct 41.7 MCV 85.3 MCH 26.0 L MCHC 30.5 L RDW Std Deviation 51.6 H RDW Coeff of Hemanth 16.4 H Plt Count 245 MPV 9.0 Immature Gran % (Auto) 0.600 Neut % (Auto) 82.7 H Lymph % (Auto) 12.7 L Lares % (Auto) 3.8 Eos % (Auto) 0.0 Baso % (Auto) 0.2 Absolute Neuts (auto) 10.3 H Absolute Lymphs (auto) 1.58 Nucleated RBC % 0 Sodium 139 Potassium 4.2 Chloride 99 Carbon Dioxide 36.0 H Anion Gap 4 L BUN 15 Creatinine 0.66 Estim Creat Clear Calc 90.30 Est GFR (MDRD) Af Amer 117 Est GFR (MDRD) Non-Af 97 BUN/Creatinine Ratio 22.8 H Glucose 279 H Calcium 9.7 POC Glucose 235 H 09/30/18 09/30/18 09/30/18 11:46 16:26 20:25 WBC RBC Hgb Hct MCV MCH MCHC RDW Std Deviation RDW Coeff of Hemanth Plt Count MPV Immature Gran % (Auto) Neut % (Auto) Lymph % (Auto) Lares % (Auto) Eos % (Auto) Baso % (Auto) Absolute Neuts (auto) Absolute Lymphs (auto) Nucleated RBC % Sodium Potassium Chloride Carbon Dioxide Anion Gap BUN Creatinine Estim Creat Clear Calc Est GFR (MDRD) Af Amer Est GFR (MDRD) Non-Af BUN/Creatinine Ratio Glucose Calcium POC Glucose 243 H 346 H 397 H 10/01/18 10/01/18 10/01/18 05:55 05:55 06:55 WBC 8.9 RBC 4.80 Hgb 12.8 Hct 40.6 MCV 84.6 MCH 26.7 L MCHC 31.5 L RDW Std Deviation 50.5 H RDW Coeff of Hemanth 16.1 H Plt Count 242 MPV 8.8 Immature Gran % (Auto) 0.400 Neut % (Auto) 75.8 H Lymph % (Auto) 16.9 L Lares % (Auto) 6.6 Eos % (Auto) 0.1 Baso % (Auto) 0.2 Absolute Neuts (auto) 6.7 Absolute Lymphs (auto) 1.51 Nucleated RBC % 0 Sodium 137 Potassium 4.4 Chloride 99 Carbon Dioxide 35.0 H Anion Gap 3 L BUN 18 Creatinine 0.64 Estim Creat Clear Calc 93.12 Est GFR (MDRD) Af Amer 121 Est GFR (MDRD) Non-Af 100 BUN/Creatinine Ratio 28.1 H Glucose 260 H Calcium 9.9 POC Glucose 259 H Microbiology 09/27/18 21:37 Urine, Catheterized Urine Culture - Final Escherichia coli 09/27/18 21:43 Blood Culture (Wb) - Right Hand Blood Culture - Preliminary No growth in 48 hours. 09/27/18 20:59 Blood Culture (Wb) - Anticubital Left Blood Culture - Preliminary No growth in 48 hours. Medical Necessity - Tobacco Use Smoking Status: Former smoker Tobacco Use: Cigarettes Assessment/Plan RECOMMENDATIONS: 1. Continue baseline supplemental oxygen. Encourage incentive spirometer use while in bed. 2. If the patient's cough becomes productive, please send sputum for culture. 3. Transition to cefazolin IV 4. Continue scheduled bronchodilators and steroids. Likely discontinue steroids tomorrow 5. Mobilize patient as tolerated. 6. The patient should have close interval follow-up with her primary chief general pediatric clinic, Dr. Olmedo, upon discharge from the hospital. IMPRESSIONS: 1. COPD/asthma exacerbation, likely secondary to community-acquired pneumonia/chronic hypoxemic respiratory failure The patient has a self-reported history of COPD/asthma of unknown severity, for which she is followed by Dr. Olmedo on an outpatient basis in [place]. She does report that her breathing quality is relatively controlled at her baseline with the use of Advair Diskus and as needed albuterol. She was last seen by her chief general pediatric clinic 2 months ago. Patient remains on basal supplemental oxygen. Patient does report some overall improvement on Levaquin therapy. However, patient is come back positive for E. coli in the urine that is resistant to Levaquin. We will transition to cefazolin. Possibly transition to Keflex tomorrow if tolerates 2. Congestive heart failure Unclear if the patient has diastolic or systolic mediated congestive heart failure. Echocardiogram is currently being performed. She may also have a component of underlying pulmonary hypertension due to her underlying lung disease and noncompliance with treatment for obstructive sleep apnea. Recommend continuing outpatient diuretic regimen. 3. Obstructive sleep apnea The patient has known severe obstructive sleep apnea but has been noncompliant with the use of nocturnal BiPAP therapy for quite some time. She is not currently interested in pursuing any additional work-up or treatment for this issue. 4. Morbid obesity/hypertension/hyperlipidemia/depression/tobacco dependency, in remission/diabetes mellitus Complicates care, management, recovery and prognosis. Continue home medications as indicated. Code Visit Inpatient E&M: 38995 Subs Hosp L2
[2018-10-01] MEDS: Cefazolin 2 GM in 0.9% Normal Saline 100 ML IV ×2 (10:32→21:22)
[2018-10-01] MEDS: 0.9% NaCl Peripheral Flush Adult/Peds IV ×3 (10:32→22:44)
[2018-10-01 11:06] LABS: Bedside Glucose 223 mg/dL (70-110)
--- NOTE | 2018-10-01 12:03 | CASEMGMT ---
CHRISTY called [facility] and spoke with someone else in admissions who told CHRISTY that [facility] asked that CHRISTY call her. CHRISTY called Oralia back and left her another voice mail asking her to get back to CHRISTY as soon as possible. Sharon BROWN MSW
--- NOTE | 2018-10-01 13:37 | PCM.PROGNOTE ---
Subjective: The patient is a 63-year-old female with a past medical history of COPD, chronic respiratory failure with hypoxemia and probable hypercapnia, former smoking history (quit in 2004), severe obstructive sleep apnea-previously on nocturnal BiPAP therapy, diabetes mellitus type 2, super obesity, depression, diabetic peripheral polyneuropathy and hyperlipidemia who presented to the emergency department at [facility] on 09/27/2018 complaining of shortness of breath and fever. She also complained of nausea and vomiting. Temp in the emergency room was 102.9. And the other vital signs were unremarkable. She was 88% on room air and 95% on 3 L nasal cannula. White blood cell count was elevated at 15.8 with a left shift. Hemoglobin and platelets were within normal limits. Sodium was low at 134 and the chloride was 97 with a serum bicarb of 35. BUN was 11 with a creatinine of 0.7. Lactic acid was 1.8. UA had 2-5 WBCs with 3+ bacteria and 0-5 squamous epithelial cells. Chest x-ray showed increased opacity in the right base. She was admitted to a monitored bed on PCU with a diagnosis of sepsis secondary to community-acquired pneumonia. She was started on intravenous Levaquin and sputum culture and urine culture were ordered. Legionella and streptococcal antigens were negative. Blood cultures have no growth x48 hours. Sputum culture was never obtained. Urine culture grew E. coli resistant to fluoroquinolones, ampicillin Augmentin and she was transitioned to Ancef. She was seen in consultation by Dr. Ankit Rios from pulmonary medicine. Pt is not currently using any form of PAP due to non-compliance. An echocardiogram shows a 47% ejection fraction with stage II diastolic dysfunction. The left atrium is mildly enlarged and the pulmonary artery systolic pressure is 42. Prednisone was started on 09/28/2018. Afebrile since 09/29. Vital signs are stable. She is 94 to 98% saturated on a 2 L nasal cannula. White blood cell count today is 8.9 with 76% neutrophils. Hemoglobin and platelets remain within normal limits. The serum bicarb is elevated at 35-likely compensatory for hypercapnia. She has never had a blood gas at this institution. Cough is less. Not doing great with PT...she has 5 steps to get into her trailer. She tells me that she has lost 49 lbs since April. the swelling in her legs is down significantly since admission. she has not had a sleep study in at least 3 years. She was on BIPAP and could not tolerate the noise and the pressure on her face. She sees a Dr. jimenes for pulmonology. she is thinking she may want to be evaluated for gastric bypass surgery. She c/o restless leg, day time drowsiness, troubles with memory, trouble losing weight. - Physical Exam General: Alert, Oriented x3, Cooperative, No apparent distress HEENT: Atraumatic, PERRLA, EOMI, Normocephalic, - - Conjunctivae is somewhat injected. Oral: Moist Mucosa Neck: Trachea Midline Lungs: Clear to auscultation, Diminished Cardiovascular: Regular rate, Regular Rhythm, Normal S1, Normal S2, No murmurs, No rub noted, No Gallop Abdomen: Bowel Sounds Present, Soft, Non Tender, Non-Distended, Obese Extremities: No cyanosis, Edema - much imporved and she has no pitting edema of the ankles at this time Skin: No rashes, - - very dry skin over the distal LE's. thick calluses on the plantar surface of the feet Musculoskeletal: No Muscle Wasting Neurological: Cranial nerves II-XII grossly intact, Neuro grossly intact Psych/Mental Status: Normal Affect, Appropriate Vital Signs Temp Pulse Resp BP Pulse Ox 97.7 F L 88 17 144/70 H 94 10/01/18 09:15 10/01/18 09:15 10/01/18 09:15 10/01/18 09:15 10/01/18 09:15 Oxygen Flow Rate (L/min) 2 Oxygen Delivery Method Nasal Cannula Weight: 384 lb 14.833 oz Body Mass Index (BMI) 58.5 Intake and Output for Last 24 Hours 09/29/18 09/30/18 10/01/18 23:59 23:59 23:59 Intake Total 240 / 240 1280 / 1280 1364 / 1364 Output Total 3750 / 3750 3025 / 3025 2425 / 2425 Balance -3510 / -3510 -1745 / -1745 -1061 / -1061 Microbiology Past 72 Hours 09/27/18 21:37 Urine Culture - Final Urine, Catheterized Escherichia coli 09/27/18 21:43 Blood Culture - Preliminary Blood Culture (Wb) - Right Hand No growth in 48 hours. 09/27/18 20:59 Blood Culture - Preliminary Blood Culture (Wb) - Anticubital Left No growth in 48 hours. Laboratory Tests Past 24 Hrs 10/01/18 10/01/18 05:55 05:55 WBC 8.9 RBC 4.80 Hgb 12.8 Hct 40.6 MCV 84.6 MCH 26.7 L MCHC 31.5 L RDW Std Deviation 50.5 H RDW Coeff of Hemanth 16.1 H Plt Count 242 MPV 8.8 Immature Gran % (Auto) 0.400 Neut % (Auto) 75.8 H Lymph % (Auto) 16.9 L Martin % (Auto) 6.6 Eos % (Auto) 0.1 Baso % (Auto) 0.2 Absolute Neuts (auto) 6.7 Absolute Lymphs (auto) 1.51 Nucleated RBC % 0 Sodium 137 Potassium 4.4 Chloride 99 Carbon Dioxide 35.0 H Anion Gap 3 L BUN 18 Creatinine 0.64 Estim Creat Clear Calc 93.12 Est GFR (MDRD) Af Amer 121 Est GFR (MDRD) Non-Af 100 BUN/Creatinine Ratio 28.1 H Glucose 260 H Calcium 9.9 POC Glucose 10/01/18 10/01/18 09/30/18 10:56 06:55 20:25 POC Glucose 223 H 259 H 397 H 09/30/18 16:26 POC Glucose 346 H Medical Necessity - Tobacco Use Smoking Status: Former smoker Tobacco Use: Cigarettes Assessment/Plan Impressions 1. Sepsis secondary to community-acquired pneumonia. Continue Levaquin. 2. Mild cardiomyopathy with a 47% ejection fraction. 3. Acute on chronic congestive heart failure 4. Chronic respiratory failure with hypoxia and suspected hypercapnia with compensatory metabolic alkalosis 5. Acute exacerbation of COPD 6. Dyslipidemia 7. Hypertension 8. Depression 9. Obstructive sleep apnea-noncompliant with BiPAP 10. Super obesity 11. E. coli urinary tract infection-catheterized specimen 12. Diabetes mellitus type 2-uncontrolled...Prednisone likely has something to do with this Continue Levaquin Ambulatory pulse ox on 2 L of nasal O2 in the a.m. to determine oxygen requirement with exertion SNF at discharge for strengthening DC cardiac diet and change diet to 2000-calorie cardiac diet ABG-serum bicarb has been steadily increasing since admission and has increased from 30-35 today. Code Visit Inpatient E&M: 17835 Subs Hosp L2
--- NOTE | 2018-10-01 15:19 | CASEMGMT ---
CHRISTY has not heard from [facility], patient's [facility] choice for SNF. CHRISTY called [facility], patient's second choice, to see if they have a weight limit and no one was available so a message was left. Await return calls. CHRISTY did call [facility] back and left another voice mail. Sharon BROWN MSW
[2018-10-01 16:31] LABS: Bedside Glucose 316 mg/dL (70-110)
[2018-10-01 18:16] LABS: Base Excess 5 mmol/L (-2 to +2); Bicarbonate 30.8 mmol/L (22-26); Blood Gas Specimen Type ART; O2 Delivery Device Nasal Can; PO2 73 mmHG (75-100); SITE R Brachial; SO2 94 % (95-99); Time Given 1815; Total Carbon Dioxide 32 mmol/L; pCO2 53.3 mmHg (35-45); pH 7.37 (7.35-7.45)
[2018-10-01] MEDS: Atorvastatin Calcium 20 MG Tablet PO (21:06)
[2018-10-01] MEDS: Famotidine 20 MG Tablet PO (21:06)
[2018-10-01 21:21] LABS: Bedside Glucose 451 mg/dL (70-110)
[2018-10-01 21:50] LABS: Glucose 444 mg/dL (74-106)
[2018-10-01] MEDS: Insulin Lispro 100 UNIT/ML INSULN.PEN 12 UNIT SC (21:58)
[2018-10-02] VITALS (12 sets, daily range): BP systolic 126–157; BP diastolic 68–90; PULSE 81–107; RESP 14–18; TEMP 36.4–36.9; O2SAT 91–96
[2018-10-02] MEDS: Insulin Lispro 100 UNIT/ML INSULN.PEN SC ×4 (02:57→16:03)
[2018-10-02 03:11] LABS: Bedside Glucose 305 mg/dL (70-110)
[2018-10-02] MEDS: 0.9% NaCl IVPB Med Flush (250 mL) 15 ML IV (06:06)
[2018-10-02] MEDS: Cefazolin 2 GM in 0.9% Normal Saline 100 ML IV ×2 (06:07→13:19)
[2018-10-02] MEDS: 0.9% NaCl Peripheral Flush Adult/Peds IV ×4 (06:08→21:04)
[2018-10-02] MEDS: Gabapentin 300 MG Capsule PO ×3 (06:13→21:07)
[2018-10-02 06:51] LABS: Bedside Glucose 196 mg/dL (70-110)
[2018-10-02 07:06] LABS: Absolute Lymphocyte Count 1.98 X10^3/uL (0.83-4.51); Absolute Neutrophil Count 5.9 X10^3/uL (2.0-7.7); Basophil# 0.02 X10^3/uL; Basophil% 0.2 % (0-1); Eosinophil# 0.06 X10^3/uL; Eosinophils% 0.7 % (0-5); Hematocrit 42.7 % (37-47); Hemoglobin 13.1 g/dL (12.0-15.0); Lymphocyte # 1.98 X10^3/ul (4.0); Lymphocyte % 22.7 % (19-41); Mean Corp Hgb Conc 30.7 g/dL (32-36); Mean Corpuscular Hgb 25.6 pg (27.0-32.0); Mean Corpuscular Volume 83.6 fL (81-99); Mean Platelet Vol. 8.9 fl (6.2-12.0); Monocyte# 0.67 X10^3/uL; Monocyte% 7.7 % (0-10); NRBC Flagged by Analyzer 0 % (0-5); Neutrophil # 5.92 X10^3/uL (2.7-7.7); Platelet Count 264 K/mm3 (150-450); RBC Distribution Width CV 16.4 % (11.6-14.6); RBC Distribution Width SD 50.4 fl (35.1-43.9); Red Blood Count 5.11 M/mm3 (4.2-5.4); White Blood Count 8.7 K/mm3 (4.4-11.0)
--- NOTE | 2018-10-02 07:22 | CASEMGMT ---
CHRISTY received a message from Nena at [facility]. She said they would be able to manage a patient that weighs 384 lbs. CHRISTY will fax referral to them this am since [facility] never returned CHRISTY's phone calls yesterday. Sharon BROWN MSW
[2018-10-02 07:29] LABS: Anion Gap 4 (5-15); BUN 19 mg/dL (7-18); BUN/Creat Ratio 32.1 RATIO (10-20); Calcium,Total 9.9 mg/dL (8.5-10.1); Chloride 100 mmol/L (98-107); Creatinine, Serum 0.59 mg/dL (0.55-1.02); EST Glomerular Filtration Rate 110 mL/min (>60); Est Glom Filt Rate - Afr Amer 133 mL/min (>60); Estimated Creatinine Clearance 101.01 ml/min; Glucose 212 mg/dL (74-106); Potassium 4.1 mmol/L (3.5-5.1); Sodium Level 137 mmol/L (136-145)
[2018-10-02 07:51] LABS: Hemoglobin A1c 9.9 % (4.2-6.3)
[2018-10-02] MEDS: Citalopram 40 MG TABLET PO (07:57)
[2018-10-02] MEDS: Enoxaparin 40 MG/0.4 ML Syringe SC (07:57)
[2018-10-02] MEDS: buPROPion (XL) 150 MG TABLET.XL PO ×2 (07:57→21:07)
[2018-10-02] MEDS: predniSONE 20 MG Tablet PO (07:57)
[2018-10-02] MEDS: Acetaminophen 325 MG Tablet 650 MG PO ×2 (08:04→21:20)
--- NOTE | 2018-10-02 08:07 | PCM.PN.PUL ---
Subjective: Patient did well overnight. Patient denies any allergic reactions to penicillins initiated yesterday. Patient is on her baseline nasal cannula oxygen. Patient denies any nausea vomiting or lightheadedness with change in position. - Physical Exam General: Alert, Oriented x3, Cooperative, No apparent distress, - - No conversational dyspnea. HEENT: Atraumatic, PERRLA, EOMI, Normocephalic, - - No scleral icterus or injection noted. Oral: Moist Mucosa, No Gingival or Mucosal Lesions/ Ulcerations Neck: Supple, No JVD, No Nodes, Trachea Midline Lungs: No rhonchi, No wheeze, No rales, Diminished Cardiovascular: Regular rate, Regular Rhythm, Normal S1, Normal S2, No murmurs, No rub noted, No Gallop Abdomen: Bowel Sounds Present, Soft, Non Tender, Non-Distended, Obese Extremities: No clubbing, No cyanosis, Edema Skin: No rashes, No breakdown Musculoskeletal: No Tenderness to Palpation of Joints or Extremities Lymphatic: No Cervical, Supraclavicular, or Inguinal Adenopathy Neurological: Cranial nerves II-XII grossly intact, Neuro grossly intact, Motor Exam 5/5 strength throughout Psych/Mental Status: Alert and oriented to time, place, person, mood and affect Vital Signs Temp Pulse Resp BP Pulse Ox 36.5 C L 81 18 151/90 H 95 10/02/18 02:51 10/02/18 07:00 10/02/18 02:51 10/02/18 02:51 10/02/18 02:51 Oxygen Flow Rate (L/min) 1 Oxygen Delivery Method Nasal Cannula Weight: 174.6 kg Body Mass Index (BMI) 58.5 Intake and Output for Last 24 Hours 09/30/18 10/01/18 10/02/18 23:59 23:59 23:59 Intake Total 1280 / 1280 2129 / 2129 414.5 / 414.5 Output Total 3025 / 3025 4400 / 4400 950 / 950 Balance -1745 / -1745 -2271 / -2271 -535.5 / -535.5 Microbiology Past 72 Hours 09/27/18 21:37 Urine Culture - Final Urine, Catheterized Escherichia coli 09/27/18 21:43 Blood Culture - Preliminary Blood Culture (Wb) - Right Hand No growth in 48 hours. 09/27/18 20:59 Blood Culture - Preliminary Blood Culture (Wb) - Anticubital Left No growth in 48 hours. Laboratory Tests Past 24 Hrs 10/01/18 10/01/18 10/02/18 18:12 21:30 05:55 WBC 8.7 RBC 5.11 Hgb 13.1 Hct 42.7 MCV 83.6 MCH 25.6 L MCHC 30.7 L RDW Std Deviation 50.4 H RDW Coeff of Hemanth 16.4 H Plt Count 264 MPV 8.9 Immature Gran % (Auto) 0.700 Neut % (Auto) 68.0 Lymph % (Auto) 22.7 Parmer % (Auto) 7.7 Eos % (Auto) 0.7 Baso % (Auto) 0.2 Absolute Neuts (auto) 5.9 Absolute Lymphs (auto) 1.98 Nucleated RBC % 0 Specimen Type ART Sample Site R Brachial pH 7.37 Bicarbonate Actual 30.8 H POC Total CO2 32 Base Excess 5 H O2 Saturation 94 L ABG pCO2 53.3 H ABG pO2 73 L Jalen Test NA O2 Delivery Device Nasal Can Liter Flow 1.0 Blood Gas Notified Whom [facility] Blood Gas Notified Time 1815 Sodium Potassium Chloride Carbon Dioxide Anion Gap BUN Creatinine Estim Creat Clear Calc Est GFR (MDRD) Af Amer Est GFR (MDRD) Non-Af BUN/Creatinine Ratio Glucose 444 H Hemoglobin A1c Calcium 10/02/18 10/02/18 05:55 05:55 WBC RBC Hgb Hct MCV MCH MCHC RDW Std Deviation RDW Coeff of Hemanth Plt Count MPV Immature Gran % (Auto) Neut % (Auto) Lymph % (Auto) Parmer % (Auto) Eos % (Auto) Baso % (Auto) Absolute Neuts (auto) Absolute Lymphs (auto) Nucleated RBC % Specimen Type Sample Site pH Bicarbonate Actual POC Total CO2 Base Excess O2 Saturation ABG pCO2 ABG pO2 Jalen Test O2 Delivery Device Liter Flow Blood Gas Notified Whom Blood Gas Notified Time Sodium 137 Potassium 4.1 Chloride 100 Carbon Dioxide 33.0 H Anion Gap 4 L BUN 19 H Creatinine 0.59 Estim Creat Clear Calc 101.01 Est GFR (MDRD) Af Amer 133 Est GFR (MDRD) Non-Af 110 BUN/Creatinine Ratio 32.1 H Glucose 212 H Hemoglobin A1c 9.9 H Calcium 9.9 POC Glucose 10/02/18 10/02/18 10/01/18 06:35 02:55 21:15 POC Glucose 196 H 305 H 451 H* 10/01/18 10/01/18 16:12 10:56 POC Glucose 316 H 223 H Medical Necessity - Tobacco Use Smoking Status: Former smoker Tobacco Use: Cigarettes Assessment/Plan RECOMMENDATIONS: 1. Continue baseline supplemental oxygen. Encourage incentive spirometer use while in bed. 2. Okay to transition to p.o. antibiotics from my perspective. Defer to hospitalist. 3. Discontinue steroids 4. Continue scheduled bronchodilators. Okay to add Pulmicort as therapeutic substitution 5. Patient can resume baseline respiratory medications on discharge 6. The patient should have close interval follow-up with her primary sourcing consultant, Dr. Olmedo, upon discharge from the hospital. IMPRESSIONS: 1. COPD/asthma exacerbation, likely secondary to community-acquired pneumonia/chronic hypoxemic respiratory failure The patient has a self-reported history of COPD/asthma of unknown severity, for which she is followed by Dr. Olmedo on an outpatient basis in [place]. She does report that her breathing quality is relatively controlled at her baseline with the use of Advair Diskus and as needed albuterol. She was last seen by her sourcing consultant 2 months ago. Patient remains on basal supplemental oxygen. Patient tolerated transition to penicillin based antibiotic yesterday. No allergic reactions were reported. Likely okay to take off of her allergy list. Would defer to hospitalist, but okay to transition to p.o. antibiotics to complete a total of 7 days (6 additional days) of antibiotics given previous resistance. 2. Congestive heart failure Unclear if the patient has diastolic or systolic mediated congestive heart failure. Echocardiogram does show systolic and diastolic dysfunction with an EF of 47%. Pulmonary artery pressures are also elevated at 42 mmHg. She may also have a component of underlying pulmonary hypertension due to her underlying lung disease and noncompliance with treatment for obstructive sleep apnea. Recommend continuing outpatient diuretic regimen. 3. Obstructive sleep apnea The patient has known severe obstructive sleep apnea but has been noncompliant with the use of nocturnal BiPAP therapy for quite some time. She is not currently interested in pursuing any additional work-up or treatment for this issue. 4. Morbid obesity/hypertension/hyperlipidemia/depression/tobacco dependency, in remission/diabetes mellitus Complicates care, management, recovery and prognosis. Continue home medications as indicated. Code Visit Inpatient E&M: 39176 Subs Hosp L2
--- NOTE | 2018-10-02 09:52 | CASEMGMT ---
SW spoke with patient and let her know that SW has not heard from [facility] so SW has to move on to her second choice, [facility]. She was in agreement with this plan. CHRISTY faxed referral to [facility]. CHRISTY also called [facility] and spoke with Mattie regarding referral. SW let her know patient is ready for d/c as soon as pre-cert is obtained. Plan: SNF pending accepting facility and insurance approval. Sharon BROWN MSW
[2018-10-02 11:06] LABS: Bedside Glucose 248 mg/dL (70-110)
--- NOTE | 2018-10-02 14:18 | CHAPLAIN ---
Type of Pastoral Visit _x__ Initial Visit ___ Follow-up Visit ___ On-call Visit ___ General Patient Visit ___ Spiritual Assessment ___ Family Conference ___ Bereavement ___ Rapid Response ___ Code Blue ___ Other (describe below) Pastoral Care Referral From _x__ Patient ___ Family ___ Nurse ___ Physician ___ Clinical Partner ___ Academic Affairs Coordinator ___ Other (describe below) Sacrament/Intervention _x__ Active listening ___ Anointing ___ Roman Catholic ___ Bereavement ___ Communion _x__ Flory exploration ___ _x__ Life review _x__ Prayer ___ Reconciliation ___ Sacrament of Sick _x__ Supportive presence ___ Wedding ___ Other (describe below) Pastoral Comments patient was asking questions about Advanced Directives and POA; directed these questions to SW for follow up
--- NOTE | 2018-10-02 15:15 | CASEMGMT ---
CHRISTY spoke with [facility] and she said they should be good to accept patient. She said they would like to know the antibiotic patient will be on and how long. After speaking with physician about antibiotics CHRISTY called [facility] back and spoke with Nena. CHRISTY let her know this information and she said she is working on patient's case and will get back to CHRISTY. CHRISTY spoke with patient and let her know that it sounds like [facility] is able to accept her, but it likely will not be today. Plan: [facility] pending insurance approval. Sharon BROWN MSW
[2018-10-02 16:16] LABS: Bedside Glucose 311 mg/dL (70-110)
--- NOTE | 2018-10-02 16:22 | CASEMGMT ---
CHRISTY received a call from Nena at [facility] and insurance is asking for today's therapy notes as patient did not participate in therapy yesterday. CHRISTY faxed this information to [facility]. Sharon BROWN MSW
--- NOTE | 2018-10-02 16:32 | CASEMGMT ---
CHRISTY spoke with patient and when she is approved her friend can take her to the halfway. Patient has portable O2 at home. However, she said it is big and bulky and hard to maneuver. She asked if she could go without it. CHRISTY told her she would need to ask the physician if this would be okay. She asked if she is going tomorrow. CHRISTY told her it is looking like that is when it will be as we are just waiting on insurance now. Plan: d/c to [facility] pending insurance approval. Patient's friend will transport her. Sharon BROWN MSW
--- NOTE | 2018-10-02 18:14 | PN_ITS ---
Subjective: Day #2 Ancef.....previously on Levaquin but E. Coli in the urine is resistant to FQ's so transitioned to Ancef on 10/01 All events of the past 24 hours been reviewed. She has been afebrile since 09/28/2018.......Levaquin must have been treating something because she was febrile prior to that. BP is stable but, the BP has been increasing throughout the day today. ST on telemetry. She is 95 to 96% saturated on 1 L nasal cannula. White blood cell count today is 8.7 with an unremarkable differential. Hemoglobin is 13.1 and platelets are within normal limits. BMP is remarkable for a serum bicarb of 33 and a BUN of 19 with a creatinine of 0.59. ABG on a 1 L nasal cannula showed a pH of 7.37 with a PCO2 of 53 and a PO2 of 73. she has been awake all day and has been more active. Her nurse alerted me to check a large reddened area on the R lateral thigh which is getting larger. she has been picking at her skin and previously had a scab that she has now picked off.....has also picked scab off the left breast but there is no redness there. - Physical Exam General: Alert, Oriented x3, Cooperative, No apparent distress Oral: Moist Mucosa Lungs: Clear to auscultation, No rhonchi, No wheeze, No rales, - - Not tachypneic, no accessory muscle use, no conversational dyspnea, symmetric chest expansion Cardiovascular: Regular Rhythm, Normal S1, Normal S2, No murmurs, No Gallop, Tachycardic Abdomen: Bowel Sounds Present, Soft, Non Tender, Non-Distended, Obese Extremities: No edema Skin: - - she has a large area of erythema involving the Right lateral thigh and there are some punctate vesicles that appear to be filled with white DC...there is also some desquamation Neurological: Cranial nerves II-XII grossly intact, Neuro grossly intact Psych/Mental Status: Normal Affect, Appropriate Vital Signs Temp Pulse Resp BP Pulse Ox 98.0 F 102 H 14 136/73 H 94 10/02/18 15:00 10/02/18 15:00 10/02/18 15:00 10/02/18 15:00 10/02/18 15:00 Oxygen Flow Rate (L/min) 2 Oxygen Delivery Method Nasal Cannula Weight: 384 lb 14.833 oz Body Mass Index (BMI) 58.5 Intake and Output for Last 24 Hours 09/30/18 10/01/18 10/02/18 23:59 23:59 23:59 Intake Total 1280 / 1280 2129 / 2129 1167.0 / 1167.0 Output Total 3025 / 3025 4400 / 4400 1250 / 1250 Balance -1745 / -1745 -2271 / -2271 -83.0 / -83.0 Microbiology Past 72 Hours 09/27/18 21:37 Urine Culture - Final Urine, Catheterized Escherichia coli 09/27/18 21:43 Blood Culture - Preliminary Blood Culture (Wb) - Right Hand No growth in 48 hours. 09/27/18 20:59 Blood Culture - Preliminary Blood Culture (Wb) - Anticubital Left No growth in 48 hours. Laboratory Tests Past 24 Hrs 10/01/18 10/01/18 10/02/18 18:12 21:30 05:55 WBC 8.7 RBC 5.11 Hgb 13.1 Hct 42.7 MCV 83.6 MCH 25.6 L MCHC 30.7 L RDW Std Deviation 50.4 H RDW Coeff of Hemanth 16.4 H Plt Count 264 MPV 8.9 Immature Gran % (Auto) 0.700 Neut % (Auto) 68.0 Lymph % (Auto) 22.7 [place] % (Auto) 7.7 Eos % (Auto) 0.7 Baso % (Auto) 0.2 Absolute Neuts (auto) 5.9 Absolute Lymphs (auto) 1.98 Nucleated RBC % 0 Specimen Type ART Sample Site R Brachial pH 7.37 Bicarbonate Actual 30.8 H POC Total CO2 32 Base Excess 5 H O2 Saturation 94 L ABG pCO2 53.3 H ABG pO2 73 L Jalen Test NA O2 Delivery Device Nasal Can Liter Flow 1.0 Blood Gas Notified Whom HOSP Blood Gas Notified Time 181 Sodium Potassium Chloride Carbon Dioxide Anion Gap BUN Creatinine Estim Creat Clear Calc Est GFR (MDRD) Af Amer Est GFR (MDRD) Non-Af BUN/Creatinine Ratio Glucose 444 H Hemoglobin A1c Calcium 10/02/18 10/02/18 05:55 05:55 WBC RBC Hgb Hct MCV MCH MCHC RDW Std Deviation RDW Coeff of Hmeanth Plt Count MPV Immature Gran % (Auto) Neut % (Auto) Lymph % (Auto) [place] % (Auto) Eos % (Auto) Baso % (Auto) Absolute Neuts (auto) Absolute Lymphs (auto) Nucleated RBC % Specimen Type Sample Site pH Bicarbonate Actual POC Total CO2 Base Excess O2 Saturation ABG pCO2 ABG pO2 Jalen Test O2 Delivery Device Liter Flow Blood Gas Notified Whom Blood Gas Notified Time Sodium 137 Potassium 4.1 Chloride 100 Carbon Dioxide 33.0 H Anion Gap 4 L BUN 19 H Creatinine 0.59 Estim Creat Clear Calc 101.01 Est GFR (MDRD) Af Amer 133 Est GFR (MDRD) Non-Af 110 BUN/Creatinine Ratio 32.1 H Glucose 212 H Hemoglobin A1c 9.9 H Calcium 9.9 POC Glucose 10/02/18 10/02/18 10/02/18 16:01 10:55 06:35 POC Glucose 311 H 248 H 196 H 10/02/18 10/01/18 02:55 21:15 POC Glucose 305 H 451 H* Medical Necessity - Tobacco Use Smoking Status: Former smoker Tobacco Use: Cigarettes Assessment/Plan Impressions 1. Sepsis secondary to community-acquired pneumonia and UTI due to E. Coli resistant to FQ's. Now with a second episode of sepsis due to cellulitis of the right lateral thigh which is a hospital acquired infection. 2. Mild cardiomyopathy with a 47% ejection fraction. 3. Acute on chronic congestive heart failure 4. Chronic respiratory failure with hypoxia and hypercapnia 5. Acute exacerbation of COPD - resolved 6. Dyslipidemia 7. Hypertension 8. Depression 9. Obstructive sleep apnea vs obesity hypoventilation S - noncompliant with BiPAP 10. Super obesity 11. E. coli urinary tract infection-catheterized specimen 12. Diabetes mellitus type 2-uncontrolled...Prednisone likely has something to do with this DC Ancef and start Rocephin and Vanco Blood cultures x2 now CT scan of the right thigh to rule out abscess Stat lactic acid, ESR and CRP Recheck lab in the a.m. Provigil 100 mg Q AM Continue Wellbutrin for appetite suppression adjust the insulin to get control of the Blood sugars IV NS to hydrate......has likely been losing fluid due to uncontrolled BS's and BUN has been increasing. Code Visit Inpatient E&M: 63286 Subs Hosp L3
--- NOTE | 2018-10-02 18:16 | CT_ITS ---
CT of the right hip INDICATION: Right lateral thigh redness and cellulitis. Possible abscess or infection TECHNIQUE: CT of the right hip was performed in the axial plane without contrast followed by sagittal and coronal reconstructions. Radiographic technique was optimized to limit patient radiation dose. FINDINGS: No evidence for acute fracture or dislocation of the hip. There are degenerative changes present. There is subcutaneous edema or cellulitis in the right lateral thigh however there is no evidence for associated intramuscular abscess and the myofascial fat planes are well-maintained. There is no evidence for acute osteomyelitis. CT/Extremity Lower without Contra IMPRESSION: Subcutaneous edema or cellulitis without evidence for intramuscular abscess. No evidence for acute osteomyelitis Electronically Signed: Rafael Sifuentes MD at 19:20 EDT , Service support ,
--- NOTE | 2018-10-02 18:17 | EKG12_ITS ---
Test Reason : Blood Pressure : / mmHG Vent. Rate : 089 BPM Atrial Rate : 089 BPM P-R Int : 152 ms QRS Dur : 092 ms QT Int : 364 ms P-R-T Axes : 059 030 006 degrees QTc Int : 442 ms Sinus rhythm with Premature atrial complexes Nonspecific ST and T wave abnormality Abnormal ECG When compared with ECG of 27-SEP-2018 21:05, MANUAL COMPARISON REQUIRED, DATA IS UNCONFIRMED Confirmed by NEGRITA ABREU ([id number]), image editor ABDIEL WOO ([id number]) on 10/08/2018 2:36:26 PM Referred By: BART Confirmed By:NEGRITA ABREU
--- NOTE | 2018-10-02 18:48 | US_ITS ---
STUDY: SUPERFICIAL ULTRASOUND - RIGHT UPPER LATERAL THIGH REASON FOR EXAM: Female, 63 years old. TECHNIQUE: A superficial ultrasound was performed with real-time and static [place]-scale imaging. COMPARISON: None. FINDINGS: There is cellulitis or edema and within the subcutaneous fat. There is no focal mass or abscess. US/Ext Non Vasc Limited/Soft Tiss IMPRESSION: No sonographic evidence for abscess Electronically Signed: Rafael Sifuentes MD at 20:35 EDT , Service support ,
--- NOTE | 2018-10-02 20:15 | EKG12_ITS ---
Test Reason : ADMIT Blood Pressure : / mmHG Vent. Rate : 106 BPM Atrial Rate : 106 BPM P-R Int : 136 ms QRS Dur : 086 ms QT Int : 344 ms P-R-T Axes : 072 041 018 degrees QTc Int : 456 ms Sinus tachycardia Otherwise normal ECG When compared with ECG of 28-SEP-2018 17:39, MANUAL COMPARISON REQUIRED, DATA IS UNCONFIRMED Confirmed by NEGRITA ABREU ([id number]), greeting card editor MIKAL ENGLISH ([id number]) on 10/09/2018 8:41:12 AM Referred By: YOBANI Confirmed By:NEGRITA ABREU
--- NOTE | 2018-10-02 20:35 | PCM.RX.CS ---
Consult Pharmacy has been consulted to manage selected antiobiotic: Vancomycin Type of Consult: New start Suspected Infection: Sepsis, Skin/Soft tissue Labs: Sodium 137 mmol/L (136-145) 10/02/18 05:55 Potassium 4.1 mmol/L (3.5-5.1) 10/02/18 05:55 Chloride 100 mmol/L (98-107) 10/02/18 05:55 Carbon Dioxide 33.0 mmol/L (21.0-32.0) H 10/02/18 05:55 4 (5-15) L 10/02/18 05:55 BUN 19 mg/dL (7-18) H 10/02/18 05:55 0.59 mg/dL (0.55-1.02) 10/02/18 05:55 Est GFR (MDRD) Af Amer 133 mL/min (>60) 10/02/18 05:55 Est GFR (MDRD) Non-Af 110 mL/min (>60) 10/02/18 05:55 32.1 RATIO (10-20) H 10/02/18 05:55 Glucose 212 mg/dL (74-106) H 10/02/18 05:55 Microbiology: Microbiology 09/27/18 21:37 Urine, Catheterized Urine Culture - Final Escherichia coli 09/27/18 21:43 Blood Culture (Wb) - Right Hand Blood Culture - Preliminary No growth in 48 hours. 09/27/18 20:59 Blood Culture (Wb) - Anticubital Left Blood Culture - Preliminary No growth in 48 hours. 09/27/18 21:37 Urine Catheter - Catheter Streptococcus pneumoniae Antigen (M - Final 09/27/18 21:37 Urine Catheter - Catheter Legionella Antigen - Final Weight used for dosin.6 kg Estimated Creatinine Clearance: 101 ML/MIN Goal Trough: 15-20 mcg/mL Pharmacy Plan for Drug Dosing: Give initial dose of 2000mg IV x1, then continue with 1500mg IV q8h. Obtain a trough level before the 4th dose tomorrow. Pharmacy Service will continue to monitor and adjust dosing as required. Follow-Up Labs: Trough Vancomycin Labs to be done on [date and time ordered]: 10/03/18 19:30
[2018-10-02] MEDS: Insulin Lispro 100 UNIT/ML INSULN.PEN 10 UNIT SC (20:40)
[2018-10-02 20:46] LABS: Erythrocyte Sedimentation Rate 107 mm/hr (0-30)
[2018-10-02 21:00] LABS: AST(SGOT) 16 U/L (15-37); Alanine Aminotransfer ALT/SGPT 19 U/L (13-56); Alkaline Phosphatase 148 U/L (45-117); Bilirubin, Direct 0.11 mg/dL (0.00-0.30); Globulin 5.1 g/dL (2.2-4.2); Protein, Total 8.1 g/dL (6.4-8.2)
[2018-10-02 21:01] LABS: Lactic Acid 1.5 mmol/L (0.4-2.0)
[2018-10-02] MEDS: 0.9% Normal Saline 1,000 ML 999 ML IV (21:02)
[2018-10-02] MEDS: Atorvastatin Calcium 20 MG Tablet PO (21:07)
[2018-10-02] MEDS: Famotidine 20 MG Tablet PO (21:07)
[2018-10-02] MEDS: cycloBENZAPRine HCl 10 MG Tablet PO (21:20)
[2018-10-02 22:16] LABS: Bedside Glucose 227 mg/dL (70-110)
[2018-10-02] MEDS: 0.9% Normal Saline 1,000 ML 100 ML IV (22:31)
--- NOTE | 2018-10-02 23:05 | CPS ---
pt states does not wear bipap at home-she doesn't want the hospitals-she can't sleep with the noise. bipap not set up in room
[2018-10-03] VITALS (13 sets, daily range): BP systolic 139–166; BP diastolic 60–85; PULSE 89–113; RESP 18–20; TEMP 36.5–36.7; O2SAT 93–98
[2018-10-03 03:55] LABS: Bedside Glucose 162 mg/dL (70-110)
[2018-10-03 05:40] LABS: Absolute Lymphocyte Count 2.94 X10^3/uL (0.83-4.51); Absolute Neutrophil Count 5.7 X10^3/uL (2.0-7.7); Basophil# 0.06 X10^3/uL; Basophil% 0.6 % (0-1); Eosinophil# 0.19 X10^3/uL; Eosinophils% 1.9 % (0-5); Hematocrit 42.5 % (37-47); Lymphocyte # 2.94 X10^3/ul (4.0); Lymphocyte % 29.3 % (19-41); Mean Corp Hgb Conc 30.6 g/dL (32-36); Mean Platelet Vol. 8.7 fl (6.2-12.0); Monocyte# 1.05 X10^3/uL; Monocyte% 10.5 % (0-10); NRBC Flagged by Analyzer 0 % (0-5); Neutrophil % 56.7 % (47-70); Platelet Count 244 K/mm3 (150-450); RBC Distribution Width CV 16.3 % (11.6-14.6); RBC Distribution Width SD 51.5 fl (35.1-43.9)
[2018-10-03 05:57] LABS: ALB/GLOB Ratio 0.6 RATIO (0.9-2.4); AST(SGOT) 32 U/L (15-37); Alanine Aminotransfer ALT/SGPT 18 U/L (13-56); Albumin, Serum 2.6 g/dL (3.2-5.0); Alkaline Phosphatase 119 U/L (45-117); Anion Gap 5 (5-15); BUN 17 mg/dL (7-18); Chloride 106 mmol/L (98-107); EST Glomerular Filtration Rate 133 mL/min (>60); Est Glom Filt Rate - Afr Amer 161 mL/min (>60); Estimated Creatinine Clearance 119.19 ml/min; Globulin 4.5 g/dL (2.2-4.2); Glucose 134 mg/dL (74-106); Magnesium 2.1 mg/dL (1.6-2.6); Phosphorus 4.1 mg/dL (2.5-4.9); Potassium 4.5 mmol/L (3.5-5.1); Protein, Total 7.1 g/dL (6.4-8.2); Sodium Level 140 mmol/L (136-145)
[2018-10-03] MEDS: Gabapentin 300 MG Capsule PO ×3 (07:00→22:39)
[2018-10-03] MEDS: Modafinil 200 MG Tablet 100 MG PO (07:00)
[2018-10-03] MEDS: Budesonide Respules 0.5 MG/2 ML AMPUL.NEB. INHALATION ×2 (07:08→19:16)
[2018-10-03 07:11] LABS: Bedside Glucose 148 mg/dL (70-110)
[2018-10-03] MEDS: Pioglitazone Hydrochloride 30 MG Tablet PO (08:22)
[2018-10-03] MEDS: Citalopram 40 MG TABLET PO (08:23)
[2018-10-03] MEDS: buPROPion (XL) 150 MG TABLET.XL PO ×2 (08:23→22:39)
[2018-10-03] MEDS: 0.9% Normal Saline 1,000 ML 100 ML IV ×2 (08:35→22:15)
--- NOTE | 2018-10-03 08:44 | PCM.PN.PUL ---
Subjective: Patient did well overnight. No acute issues were reported. Patient states that she is currently waiting for placement in a rehab facility. Patient remains on 2 L nasal cannula. Patient is in the chair this morning and reported some dyspnea on exertion, but subjectively tolerated well. Patient has not had any adverse reaction to penicillin. - Physical Exam General: Alert, Oriented x3, Cooperative, No apparent distress, Well developed, Well nourished, - - Morbidly obese. Speaking in full sentences. HEENT: Atraumatic, PERRLA, EOMI, Normocephalic, - - No scleral icterus or injection noted. Oral: Moist Mucosa, No Gingival or Mucosal Lesions/ Ulcerations Neck: Supple, No Nodes, Trachea Midline, JVD, Right Lungs: No rhonchi, No wheeze, No rales, Diminished Cardiovascular: Normal S1, Normal S2, No murmurs, No rub noted, No Gallop Abdomen: Bowel Sounds Present, Soft, Non Tender, Non-Distended, Obese Extremities: No clubbing, No cyanosis, Capillary Refill Less than 3 Seconds, Edema Skin: No rashes, No breakdown Musculoskeletal: No Tenderness to Palpation of Joints or Extremities Lymphatic: No Cervical, Supraclavicular, or Inguinal Adenopathy Neurological: Cranial nerves II-XII grossly intact, Neuro grossly intact, Motor Exam 5/5 strength throughout Psych/Mental Status: Alert and oriented to time, place, person, mood and affect Vital Signs Temp Pulse Resp BP Pulse Ox 36.5 C L 101 H 20 H 139/74 H 97 10/03/18 08:15 10/03/18 08:15 10/03/18 08:15 10/03/18 08:15 10/03/18 08:15 Oxygen Flow Rate (L/min) 2 Oxygen Delivery Method Nasal Cannula Weight: 174.6 kg Body Mass Index (BMI) 58.5 Intake and Output for Last 24 Hours 10/01/18 10/02/18 10/03/18 23:59 23:59 23:59 Intake Total 9 / 2129 3467.84 / 3467.84 / Output Total 4400 / 4400 1250 / 1250 Balance -2271 / -2271 2217.84 / 2217.84 1943. / Microbiology Past 72 Hours 09/27/18 21:43 Blood Culture - Final Blood Culture (Wb) - Right Hand No growth in 5 days. 09/27/18 20:59 Blood Culture - Final Blood Culture (Wb) - Anticubital Left No growth in 5 days. 09/27/18 21:37 Urine Culture - Final Urine, Catheterized Escherichia coli Laboratory Tests Past 24 Hrs 10/02/18 10/02/18 10/02/18 05:55 20:20 20:20 WBC RBC Hgb Hct MCV MCH MCHC RDW Std Deviation RDW Coeff of Hemanth Plt Count MPV Immature Gran % (Auto) Neut % (Auto) Lymph % (Auto) [place] % (Auto) Eos % (Auto) Baso % (Auto) Absolute Neuts (auto) Absolute Lymphs (auto) Nucleated RBC % ESR 107 H Sodium Potassium Chloride Carbon Dioxide Anion Gap BUN Creatinine Estim Creat Clear Calc Est GFR (MDRD) Af Amer Est GFR (MDRD) Non-Af BUN/Creatinine Ratio Glucose Lactic Acid 1.5 Calcium Phosphorus Magnesium Total Bilirubin 0.30 Direct Bilirubin 0.11 AST 16 ALT 19 Alkaline Phosphatase 148 H C-React Prot Ext Range 42.50 H Total Protein 8.1 Albumin 3.0 L Globulin 5.1 H Albumin/Globulin Ratio 10/03/18 10/03/18 05:02 05:02 WBC 10.0 RBC 5.00 Hgb 13.0 Hct 42.5 MCV 85.0 MCH 26.0 L MCHC 30.6 L RDW Std Deviation 51.5 H RDW Coeff of Hemanth 16.3 H Plt Count 244 MPV 8.7 Immature Gran % (Auto) 1.000 H Neut % (Auto) 56.7 Lymph % (Auto) 29.3 [place] % (Auto) 10.5 H Eos % (Auto) 1.9 Baso % (Auto) 0.6 Absolute Neuts (auto) 5.7 Absolute Lymphs (auto) 2.94 Nucleated RBC % 0 ESR Sodium 140 Potassium 4.5 Chloride 106 Carbon Dioxide 29.0 Anion Gap 5 BUN 17 Creatinine 0.50 L Estim Creat Clear Calc 119.19 Est GFR (MDRD) Af Amer 161 Est GFR (MDRD) Non-Af 133 BUN/Creatinine Ratio 34.0 H Glucose 134 H Lactic Acid Calcium 9.0 Phosphorus 4.1 Magnesium 2.1 Total Bilirubin 0.40 Direct Bilirubin AST 32 ALT 18 Alkaline Phosphatase 119 H C-React Prot Ext Range Total Protein 7.1 Albumin 2.6 L Globulin 4.5 H Albumin/Globulin Ratio 0.6 L POC Glucose 10/03/18 10/03/18 10/02/18 07:02 03:23 20:40 POC Glucose 148 H 162 H 227 H 10/02/18 10/02/18 16:01 10:55 POC Glucose 311 H 248 H Clinical Impression(s) from Imaging Studies Lower Extremity CT 10/02/18 18:16 IMPRESSION: Subcutaneous edema or cellulitis without evidence for intramuscular abscess. No evidence for acute osteomyelitis Electronically Signed: Rafael Sifuentes MD at 19:20 EDT , Service support , Soft Tissue Ultrasound 10/02/18 18:48 IMPRESSION: No sonographic evidence for abscess Electronically Signed: Rafael Sifuentes MD at 20:35 EDT , Service support , Medical Necessity - Tobacco Use Smoking Status: Former smoker Tobacco Use: Cigarettes Assessment/Plan RECOMMENDATIONS: 1. Continue baseline supplemental oxygen. Encourage incentive spirometer use while in bed. 2. Okay to transition to p.o. antibiotics from my perspective. Defer to hospitalist. 3. Patient would benefit from outpatient polysomnogram and probable BiPAP 4. Continue scheduled bronchodilators. Okay to add Pulmicort as therapeutic substitution 5. Patient can resume baseline respiratory medications on discharge 6. The patient can follow-up with us or primary smt machine operator 2 weeks after discharge IMPRESSIONS: 1. COPD/asthma exacerbation, likely secondary to community-acquired pneumonia/chronic hypoxemic respiratory failure The patient has a self-reported history of COPD/asthma of unknown severity, for which she is followed by Dr. Olmedo on an outpatient basis in [place]. She does report that her breathing quality is relatively controlled at her baseline with the use of Advair Diskus and as needed albuterol. She was last seen by her smt machine operator 2 months ago. Patient remains on basal supplemental oxygen. Insulin has been removed as an allergy. Would defer to hospitalist, but okay to transition to p.o. antibiotics to complete a total of 7 days (5 additional days) of antibiotics given previous resistance. 2. Congestive heart failure Unclear if the patient has diastolic or systolic mediated congestive heart failure. Echocardiogram does show systolic and diastolic dysfunction with an EF of 47%. Pulmonary artery pressures are also elevated at 42 mmHg. She may also have a component of underlying pulmonary hypertension due to her underlying lung disease and noncompliance with treatment for obstructive sleep apnea. Patient can follow-up as an outpatient for titration of BiPAP therapy. 3. Obstructive sleep apnea The patient has known severe obstructive sleep apnea but has been noncompliant with the use of nocturnal BiPAP therapy for quite some time. She is not currently interested in pursuing any additional work-up or treatment for this issue. 4. Morbid obesity/hypertension/hyperlipidemia/depression/tobacco dependency, in remission/diabetes mellitus Complicates care, management, recovery and prognosis. Continue home medications as indicated. Encourage weight loss Code Visit Inpatient E&M: 64728 Subs Hosp L2
[2018-10-03] MEDS: Insulin Lispro 100 UNIT/ML INSULN.PEN SC ×3 (11:03→22:39)
[2018-10-03] MEDS: Enoxaparin 40 MG/0.4 ML Syringe SC (11:05)
[2018-10-03 11:15] LABS: Bedside Glucose 172 mg/dL (70-110)
--- NOTE | 2018-10-03 12:42 | PCM.PROGNOTE ---
Patient Problems: Active and Suspected Problems Fever (Acute) Subjective: Day #2 Rocephin Day #2 vancomycin Day number 5 unit antibiotics All events of the past 24 hours of been reviewed. She is afebrile. Vital signs are stable. 97% on a 2 L nasal cannula at rest. All lab was personally reviewed. White blood cell count today is 10, up from 8.7 on 10/02/2018. She has 1% immature granulocytes. BMP is unremarkable. Serum bicarb is 29 today down from 36 earlier in her admission. Blood sugars are improving with adjustments in the insulin regimen. Fasting blood sugar this morning was 148. The blood sugar prior to lunch is 172. Lactic acid was normal at 1.5 yesterday. The CRP was 42.5 and the ESR was 107. Blood culture at admission had no growth for 5 days. Repeat blood cultures were drawn yesterday for new cellulitis of the right lateral thigh. CT scan of the thigh yesterday showed soft tissue swelling with no evidence of abscess. It was not a very good study secondary to the patient's body habitus and inability to get the entire area in the scanner. US of the thigh confirmed that there is no abscess. There is no discharge to culture from the area of cellulitis on the right lateral thigh. Telemetry today continues to show sinus tachycardia at times with a single burst of atrial fibrillation with rapid ventricular response which then converted to sinus tachycardia. There are PACs. She is having some pain in the right lateral thigh.....mostly when it is palpated. no chills. Denies CP or SOB but she does feel her heart beating fast. EKG last evening showed sinus tachycardia with no suspicious ST or T wave changes. Objective: PHYSICAL EXAM: GENERAL: alert, oriented X 3, Cooperative, NAD, unless you palpate the area of cellulitis and then she winces ORAL: moist mucosa, no mucosal lesions NECK: No JVD, supple, trachea midline LUNGS: CTA, symmetric chest expansion, diminished HEART: Regular with tachycardia, Normal S1 and S2, no rub, no gallop, no MM ABDOMEN: soft, NT, ND, BS present, no guarding with palpation, obese EXTREMITIES: no edema, no cyanosis, no calf tenderness SKIN: No rashes, no breakdown, the redness of the right lateral thigh has faded, there is desquamation and dry skin, there are no openings in the skin and no DC NEUROLOGIC: no focal neurologic deficits PSYCH: appropriate, normal affect, pleasant - Physical Exam Vital Signs Temp Pulse Resp BP Pulse Ox 97.7 F L 107 H 20 H 139/74 H 97 10/03/18 08:15 10/03/18 11:34 10/03/18 08:15 10/03/18 08:15 10/03/18 08:15 Oxygen Flow Rate (L/min) 2 Oxygen Delivery Method Nasal Cannula Weight: 384 lb 14.833 oz Body Mass Index (BMI) 58.5 Intake and Output for Last 24 Hours 10/01/18 10/02/18 10/03/18 23:59 23:59 23:59 Intake Total 2129 / 2129 3467.84 / 3467.84 2829.33 / 2829.33 Output Total 4400 / 4400 1250 / 1250 Balance -2271 / -2271 2217.84 / 2217.84 2829.33 / 2829.33 Microbiology Past 72 Hours 09/27/18 21:43 Blood Culture - Final Blood Culture (Wb) - Right Hand No growth in 5 days. 09/27/18 20:59 Blood Culture - Final Blood Culture (Wb) - Anticubital Left No growth in 5 days. 09/27/18 21:37 Urine Culture - Final Urine, Catheterized Escherichia coli Laboratory Tests Past 24 Hrs 10/02/18 10/02/18 10/02/18 05:55 20:20 20:20 WBC RBC Hgb Hct MCV MCH MCHC RDW Std Deviation RDW Coeff of Hemanth Plt Count MPV Immature Gran % (Auto) Neut % (Auto) Lymph % (Auto) [place] % (Auto) Eos % (Auto) Baso % (Auto) Absolute Neuts (auto) Absolute Lymphs (auto) Nucleated RBC % ESR 107 H Sodium Potassium Chloride Carbon Dioxide Anion Gap BUN Creatinine Estim Creat Clear Calc Est GFR (MDRD) Af Amer Est GFR (MDRD) Non-Af BUN/Creatinine Ratio Glucose Lactic Acid 1.5 Calcium Phosphorus Magnesium Total Bilirubin 0.30 Direct Bilirubin 0.11 AST 16 ALT 19 Alkaline Phosphatase 148 H C-React Prot Ext Range 42.50 H Total Protein 8.1 Albumin 3.0 L Globulin 5.1 H Albumin/Globulin Ratio 10/03/18 10/03/18 05:02 05:02 WBC 10.0 RBC 5.00 Hgb 13.0 Hct 42.5 MCV 85.0 MCH 26.0 L MCHC 30.6 L RDW Std Deviation 51.5 H RDW Coeff of Hemanth 16.3 H Plt Count 244 MPV 8.7 Immature Gran % (Auto) 1.000 H Neut % (Auto) 56.7 Lymph % (Auto) 29.3 [place] % (Auto) 10.5 H Eos % (Auto) 1.9 Baso % (Auto) 0.6 Absolute Neuts (auto) 5.7 Absolute Lymphs (auto) 2.94 Nucleated RBC % 0 ESR Sodium 140 Potassium 4.5 Chloride 106 Carbon Dioxide 29.0 Anion Gap 5 BUN 17 Creatinine 0.50 L Estim Creat Clear Calc 119.19 Est GFR (MDRD) Af Amer 161 Est GFR (MDRD) Non-Af 133 BUN/Creatinine Ratio 34.0 H Glucose 134 H Lactic Acid Calcium 9.0 Phosphorus 4.1 Magnesium 2.1 Total Bilirubin 0.40 Direct Bilirubin AST 32 ALT 18 Alkaline Phosphatase 119 H C-React Prot Ext Range Total Protein 7.1 Albumin 2.6 L Globulin 4.5 H Albumin/Globulin Ratio 0.6 L POC Glucose 10/03/18 10/03/18 10/03/18 11:02 07:02 03:23 POC Glucose 172 H 148 H 162 H 10/02/18 10/02/18 20:40 16:01 POC Glucose 227 H 311 H Medical Necessity - Tobacco Use Smoking Status: Former smoker Tobacco Use: Cigarettes Assessment/Plan All Active Problems Fever (Acute) Impressions 1. Sepsis secondary to community-acquired pneumonia and UTI due to E. Coli resistant to FQ's. Now with a second episode of sepsis due to cellulitis of the right lateral thigh which is a hospital acquired infection. 2. Mild cardiomyopathy with a 47% ejection fraction. 3. Acute on chronic congestive heart failure 4. Chronic respiratory failure with hypoxia and hypercapnia 5. Acute exacerbation of COPD - resolved 6. Dyslipidemia 7. Hypertension 8. Depression 9. Obstructive sleep apnea vs obesity hypoventilation S - noncompliant with BiPAP 10. Super obesity 11. E. coli urinary tract infection-catheterized specimen 12. Diabetes mellitus type 2-uncontrolled...Prednisone likely has something to do with this 13. transient PAF with RVR Start Lopressor 25 mg p.o. twice daily Consult Dr. Clement for hospital acquired cellulitis ......acquired while initially on Levaquin and then on Ancef.... Discussed with Dr. Clement and since we have nothing to culture and this is a hospital-acquired infection will need to continue with Rocephin and vancomycin for a full course of treatment, unless the blood culture grows something BS's are improving Code Visit Inpatient E&M: 46786 Subs Hosp L2
--- NOTE | 2018-10-03 13:10 | CASEMGMT ---
CHRISTY called [facility] and spoke with Nena. She said she faxed the updated therapy notes CHRISTY sent her yesterday. She still has not heard from [facility]. Await pre-cert. Plan: [facility] pending pre-cert. Sharon BROWN MSW
--- NOTE | 2018-10-03 14:06 | CASEMGMT ---
SW spoke with physician and patient has newly developed cellulitis and Infectious Disease was consulted. Patient will need to be here a few more days. CHRISTY called [facility] and spoke with Mattie letting her know above. CHRISTY also faxed them updates. Plan: [facility] once patient is medically ready and pending insurance approval. Sharon BROWN MSW
[2018-10-03] MEDS: Metoprolol Tartrate 25 MG Tablet PO ×2 (14:22→22:38)
--- NOTE | 2018-10-03 14:36 | CON.PCM_ITS ---
Problem List (1) Fever Status: Acute Reason for Consult: sepsis Consulted by: Dr. Hathaway History of Present Illness: The patient is a 63 year old F with obesity, COPD, presented 09/27 with several days of cough with purulent sputum (different from normal sputum), SOB, fever, not feeling well, confusion. Fever to 102.9 in ED. Admitted on levaquin, pulm consulted. Ucx with ecoli. Denies any dysuria, no sx similar to past uti. Abx changed to cefazolin 10/01, then to vanc/ceftriaxone 10/02. Developed new R buttock redness, soreness, and induration. No drainage. Denies any trauma. Thinks it's better today. Fever resolved, breathing better. Full ROS performed and neg except as noted above. - Medical History Allergies/Adverse Reactions: Allergies acetaminophen [From Percocet] Adverse Reaction (Verified 09/27/18 20:27) Itching fexofenadine [From Astrid] Adverse Reaction (Verified 09/27/18 20:28) Itching glyburide Adverse Reaction (Verified 09/27/18 20:27) Itching hydrocodone [From Vicodin] Adverse Reaction (Verified 09/27/18 20:27) Itching hydromorphone [From Dilaudid] Adverse Reaction (Verified 09/27/18 20:27) Itching meperidine [From Demerol] Adverse Reaction (Verified 09/27/18 20:27) Hives metformin Adverse Reaction (Verified 09/27/18 20:27) Itching oxycodone [From Percocet] Adverse Reaction (Verified 09/27/18 20:27) Itching Home Medications: Ambulatory Orders Medication Instructions Recorded Albuterol Aerosols [Ventolin 2.5 mg INHALATION Q6H PRN PRN 09/27/18 Aerosols] Bupropion HCl [Bupropion Xl] 150 mg PO BID 09/27/18 Citalopram [Celexa] 40 mg PO DAILY 09/27/18 Cyclobenzaprine HCl 10 mg PO TID PRN 09/27/18 Furosemide 40 mg PO QHS 09/27/18 Furosemide 80 mg PO DAILY 09/27/18 Gabapentin [Neurontin] 300 mg PO TID 09/27/18 Glyburide 5 mg PO LUNCH 09/27/18 Glyburide 10 mg PO DINNER 09/27/18 Insulin Glargine,Hum.rec.anlog 20 unit SQ QHS 09/27/18 [Toujeo Solostar] Metoprolol Succinate [Toprol Xl] 100 mg PO BID 09/27/18 Ranitidine [Zantac] 150 mg PO QHS 09/27/18 Simvastatin 40 mg PO QHS 09/27/18 Verapamil HCl [Verapamil ER] 240 mg PO DAILY 09/27/18 - Social History SMOKING STATUS:: Former smoker Vital Signs Temp Pulse Resp BP Pulse Ox 97.9 F 113 H 18 148/85 H 93 10/03/18 14:13 10/03/18 14:22 10/03/18 14:13 10/03/18 14:13 10/03/18 14:13 Oxygen Flow Rate (L/min) 2 Oxygen Delivery Method Nasal Cannula Weight: 174.6 kg Body Mass Index (BMI) 58.5 Microbiology Past 72 Hours 09/27/18 21:43 Blood Culture - Final Blood Culture (Wb) - Right Hand No growth in 5 days. 09/27/18 20:59 Blood Culture - Final Blood Culture (Wb) - Anticubital Left No growth in 5 days. 09/27/18 21:37 Urine Culture - Final Urine, Catheterized Escherichia coli Laboratory Tests Past 24 Hrs 10/02/18 10/02/18 10/02/18 05:55 20:20 20:20 WBC RBC Hgb Hct MCV MCH MCHC RDW Std Deviation RDW Coeff of Hemanth Plt Count MPV Immature Gran % (Auto) Neut % (Auto) Lymph % (Auto) [place] % (Auto) Eos % (Auto) Baso % (Auto) Absolute Neuts (auto) Absolute Lymphs (auto) Nucleated RBC % ESR 107 H Sodium Potassium Chloride Carbon Dioxide Anion Gap BUN Creatinine Estim Creat Clear Calc Est GFR (MDRD) Af Amer Est GFR (MDRD) Non-Af BUN/Creatinine Ratio Glucose Lactic Acid 1.5 Calcium Phosphorus Magnesium Total Bilirubin 0.30 Direct Bilirubin 0.11 AST 16 ALT 19 Alkaline Phosphatase 148 H C-React Prot Ext Range 42.50 H Total Protein 8.1 Albumin 3.0 L Globulin 5.1 H Albumin/Globulin Ratio 10/03/18 10/03/18 05:02 05:02 WBC 10.0 RBC 5.00 Hgb 13.0 Hct 42.5 MCV 85.0 MCH 26.0 L MCHC 30.6 L RDW Std Deviation 51.5 H RDW Coeff of Hemanth 16.3 H Plt Count 244 MPV 8.7 Immature Gran % (Auto) 1.000 H Neut % (Auto) 56.7 Lymph % (Auto) 29.3 [place] % (Auto) 10.5 H Eos % (Auto) 1.9 Baso % (Auto) 0.6 Absolute Neuts (auto) 5.7 Absolute Lymphs (auto) 2.94 Nucleated RBC % 0 ESR Sodium 140 Potassium 4.5 Chloride 106 Carbon Dioxide 29.0 Anion Gap 5 BUN 17 Creatinine 0.50 L Estim Creat Clear Calc 119.19 Est GFR (MDRD) Af Amer 161 Est GFR (MDRD) Non-Af 133 BUN/Creatinine Ratio 34.0 H Glucose 134 H Lactic Acid Calcium 9.0 Phosphorus 4.1 Magnesium 2.1 Total Bilirubin 0.40 Direct Bilirubin AST 32 ALT 18 Alkaline Phosphatase 119 H C-React Prot Ext Range Total Protein 7.1 Albumin 2.6 L Globulin 4.5 H Albumin/Globulin Ratio 0.6 L - Other Studies Radiology: [] reviewed Other Studies: [] Route of nutrition/ use of supplements: [] Nutritional Intake: [] IV Site: [] Carmen Catheter: [] - Physical Exam General: Alert, Oriented x3, Cooperative, No apparent distress HEENT: Atraumatic, PERRLA, EOMI Neck: Supple, No Nodes Lungs: Diminished Cardiovascular: Regular rate, Regular Rhythm, No murmurs Abdomen: Soft, Non Tender, Non-Distended Extremities: Edema Skin: Rash Present - Some peeling erythema over R buttock IV Site: Peripheral, without redness Musculoskeletal: No Tenderness to Palpation of Joints or Extremities Neurological: Cranial nerves II-XII grossly intact - Assessment/Plan Antibiotics: [] Assessment/Plan: [] sepsis due to copd exacerbation/CAP, now complicated by R buttock cellulitis - cont vanc/ceftriaxone. Ucx with 100k ecoli, but no pyuria on UA and no symptoms which are typical of uti for her. Wbc nearly normal, fever resolved, breathing better, redness fading. Will follow, thank you, d/w Dr. Hathaway.
[2018-10-03 18:16] LABS: Bedside Glucose 198 mg/dL (70-110)
[2018-10-03 20:35] LABS: Vancomycin, Trough Level 19.4 ug/mL (5.0-15.0)
--- NOTE | 2018-10-03 21:09 | CPS ---
pt refuses bipap
--- NOTE | 2018-10-03 22:14 | PCM.RX.CS ---
Consult Pharmacy has been consulted to manage selected antiobiotic: Vancomycin Type of Consult: Follow-up Suspected Infection: Sepsis, Skin/Soft tissue Prior Doses of Antibiotics Received/Current Regimen: Medications Vancomycin HCl 1,500 mg/ (Sodium Chloride) 530 mls @ 250 mls/hr IV Q8H ARASELI Last Admin: 10/03/18 14:34 Dose: Infused Labs: Sodium 140 mmol/L (136-145) 10/03/18 05:02 Potassium 4.5 mmol/L (3.5-5.1) 10/03/18 05:02 Chloride 106 mmol/L (98-107) 10/03/18 05:02 Carbon Dioxide 29.0 mmol/L (21.0-32.0) 10/03/18 05:02 5 (5-15) 10/03/18 05:02 BUN 17 mg/dL (7-18) 10/03/18 05:02 0.50 mg/dL (0.55-1.02) L 10/03/18 05:02 Est GFR (MDRD) Af Amer 161 mL/min (>60) 10/03/18 05:02 Est GFR (MDRD) Non-Af 133 mL/min (>60) 10/03/18 05:02 34.0 RATIO (10-20) H 10/03/18 05:02 Glucose 134 mg/dL (74-106) H 10/03/18 05:02 Vancomycin Trough 19.4 ug/mL (5.0-15.0) H 10/03/18 19:35 Microbiology: Microbiology 09/27/18 21:43 Blood Culture (Wb) - Right Hand Blood Culture - Final No growth in 5 days. 09/27/18 20:59 Blood Culture (Wb) - Anticubital Left Blood Culture - Final No growth in 5 days. 09/27/18 21:37 Urine, Catheterized Urine Culture - Final Escherichia coli 09/27/18 21:37 Urine Catheter - Catheter Streptococcus pneumoniae Antigen (M - Final 09/27/18 21:37 Urine Catheter - Catheter Legionella Antigen - Final Weight used for dosin.6 kg Estimated Creatinine Clearance: 119 Goal Trough: 15-20 mcg/mL Pharmacy Plan for Drug Dosing: Trough level of 19.4 was within target range of 15-20, so will continue dosing at 1500mg q8h and re-draw trough 10/05/18. Pharmacy Service will continue to monitor and adjust dosing as required. Follow-Up Labs: Trough Vancomycin Labs to be done on [date and time ordered]: 10/05/18 @0002
[2018-10-03] MEDS: 0.9% NaCl IVPB Med Flush (250 mL) 15 ML IV (22:32)
[2018-10-03] MEDS: Atorvastatin Calcium 20 MG Tablet PO (22:39)
[2018-10-03] MEDS: Famotidine 20 MG Tablet PO (22:39)
[2018-10-03 22:56] LABS: Bedside Glucose 217 mg/dL (70-110)
[2018-10-04] VITALS (14 sets, daily range): BP systolic 122–143; BP diastolic 65–81; PULSE 82–94; RESP 16–18; TEMP 36.6–36.8; O2SAT 93–98
[2018-10-04 03:10] LABS: Bedside Glucose 95 mg/dL (70-110)
[2018-10-04] MEDS: Gabapentin 300 MG Capsule PO ×3 (06:38→21:14)
[2018-10-04] MEDS: Modafinil 200 MG Tablet 100 MG PO (06:41)
[2018-10-04] MEDS: Budesonide Respules 0.5 MG/2 ML AMPUL.NEB. INHALATION ×2 (06:50→18:52)
[2018-10-04 06:55] LABS: Bedside Glucose 103 mg/dL (70-110)
--- NOTE | 2018-10-04 09:30 | CASEMGMT ---
Patient is now on PO antibiotics and is ready for discharge. CHRISTY faxed updated information to [facility]. CHRISTY also called [facility] and spoke with Nena letting her know patient is ready and will be on PO antibiotics.
[2018-10-04] MEDS: Metoprolol Tartrate 25 MG Tablet PO ×2 (09:53→21:14)
[2018-10-04] MEDS: Citalopram 40 MG TABLET PO (09:54)
[2018-10-04] MEDS: buPROPion (XL) 150 MG TABLET.XL PO ×2 (09:54→21:14)
[2018-10-04] MEDS: Pioglitazone Hydrochloride 30 MG Tablet PO (09:54)
[2018-10-04] MEDS: Enoxaparin 40 MG/0.4 ML Syringe SC (09:54)
[2018-10-04] MEDS: 0.9% Normal Saline 1,000 ML 100 ML IV (10:04)
[2018-10-04] MEDS: Acetaminophen 325 MG Tablet 650 MG PO (10:04)
--- NOTE | 2018-10-04 10:14 | PCM.PN.ID ---
Patient Problems: Active and Suspected Problems Fever (Acute) Subjective: Feeling better, breathing well, rash improving. - Physical Exam General: Alert, Cooperative, No apparent distress Lungs: Clear to auscultation, Normal air movement Cardiovascular: Regular rate, Regular Rhythm Abdomen: Soft, Non Tender, Non-Distended Skin: Rash Present Vital Signs Temp Pulse Resp BP Pulse Ox 98.2 F 92 16 141/65 H 95 10/04/18 09:51 10/04/18 09:53 10/04/18 09:51 10/04/18 09:51 10/04/18 09:51 Oxygen Flow Rate (L/min) 2 Oxygen Delivery Method Room Air Weight: 174.6 kg Body Mass Index (BMI) 58.5 Intake and Output for Last 24 Hours 10/02/18 10/03/18 10/04/18 23:59 23:59 23:59 Intake Total 3467.84 / 3467.84 4341.33 / 4341.33 2028.75 / 2028.75 Output Total 1250 / 1250 Balance 2217.84 / 2217.84 4341.33 / 4341.33 2028.75 / 2028.75 Microbiology Past 72 Hours 09/27/18 21:43 Blood Culture - Final Blood Culture (Wb) - Right Hand No growth in 5 days. 09/27/18 20:59 Blood Culture - Final Blood Culture (Wb) - Anticubital Left No growth in 5 days. 09/27/18 21:37 Urine Culture - Final Urine, Catheterized Escherichia coli Laboratory Tests Past 24 Hrs 10/03/18 19:35 Vancomycin Trough 19.4 H POC Glucose 10/04/18 10/04/18 10/03/18 06:35 03:00 22:37 POC Glucose 103 95 217 H 10/03/18 10/03/18 17:02 11:02 POC Glucose 198 H 172 H Medical Necessity - Tobacco Use Smoking Status: Former smoker Tobacco Use: Cigarettes Route of nutrition/ use of supplements: [] Nutritional Intake: [] IV Site: [] Carmen Catheter: [] - Assessment/Plan Antibiotics: [] Assessment/Plan: [] sepsis due to copd exacerbation/CAP, now complicated by R buttock cellulitis - On vanc/ceftriaxone. Ucx with 100k ecoli, but no pyuria on UA and no symptoms which are typical of uti for her. Wbc nearly normal, fever resolved, breathing better, redness fading. Will change abx to po doxy/omnicef, plan on 4 more days of each. Will follow
[2018-10-04] MEDS: Cefdinir 300 MG Capsule PO ×2 (11:03→21:14)
[2018-10-04] MEDS: Doxycycline 100 MG CAPSULE PO ×2 (11:03→21:12)
[2018-10-04 11:16] LABS: Bedside Glucose 142 mg/dL (70-110)
--- NOTE | 2018-10-04 11:57 | CASEMGMT ---
CHRISTY received a call from Nena and she said [facility] is asking for today's OT note as patient did not do anything with OT yesterday. She also said the [facility] reviewer told her patient is close to not meeting criteria for SNF. CHRISTY faxed today's OT note. Await response. Sharon BROWN MSW
--- NOTE | 2018-10-04 13:55 | CASEMGMT ---
SW spoke with patient and let her know it is a possibility that her insurance may deny her going to SNF as she is doing much better. SW told her if that happens is she okay with going home with home health. She said she would be fine with that if insurance denies SNF. Await response from insurance. Sharon BROWN MSW
--- NOTE | 2018-10-04 15:54 | CASEMGMT ---
Received call from Nena at [facility] and patient was approved. However, after speaking with physician patient has been having multiple bowel movements and we are testing for C-Diff. Test was just sent down at 1545 today. SW called Nena and let her know we are looking at tomorrow. She said patient will be in a private room at their facility. SW let patient know she was approved, but will not go until tomorrow due to the possible c-diff. Plan: [facility] tomorrow after c-diff results received. Sharon BROWN MANAGER HOME HEALTHCARE
[2018-10-04] MEDS: Insulin Lispro 100 UNIT/ML INSULN.PEN SC ×2 (17:05→21:13)
[2018-10-04 17:10] LABS: Bedside Glucose 161 mg/dL (70-110)
--- NOTE | 2018-10-04 17:20 | PN_ITS ---
Patient Problems: Active and Suspected Problems Fever (Acute) Subjective: Patient was seen and examined today, infectious diseases changed her over to oral antibiotics today, late this afternoon however, patient had several episodes of diarrhea and I have ordered a C. difficile toxin on her stool which is pending at the time of my dictation. We have received approval for the patient to go to an extended care facility but due to the patient's pending C. difficile toxin results, I feel that it is more prudent to keep the patient until we have these results and adjust antibiotics accordingly. Patient still has a large reddened area over the patient's right hip area which is warm to the touch but there is no fluctuant area noted. Patient has no complaints of any shortness of breath, cough, or chest pain. - Physical Exam General: Alert, Oriented x3, Cooperative, No apparent distress, Well developed HEENT: Atraumatic, PERRLA, EOMI, Normocephalic Oral: Moist Mucosa Neck: Supple, No JVD, Trachea Midline, Thyroid Normal Size and Texture Lungs: Clear to auscultation, Normal air movement, No rhonchi, No wheeze, No rales Cardiovascular: Regular rate, Regular Rhythm, Normal S1, Normal S2, No murmurs Abdomen: Bowel Sounds Present, Soft, Non Tender, Obese Extremities: No clubbing, No cyanosis, Capillary Refill Less than 3 Seconds Skin: No breakdown, Rash Present - There is a large area of redness over the patient's right lateral thigh and hip area, the area is warm to touch, no e vidence of discharge noted from the area Musculoskeletal: No Tenderness to Palpation of Joints or Extremities Neurological: Cranial nerves II-XII grossly intact, Neuro grossly intact Psych/Mental Status: Normal Affect, Appropriate, Alert and oriented to time, place, person, mood and affect Vital Signs Temp Pulse Resp BP Pulse Ox 97.8 F 85 18 134/81 H 93 10/04/18 14:44 10/04/18 15:00 10/04/18 14:44 10/04/18 14:44 10/04/18 14:44 Oxygen Flow Rate (L/min) 2 Oxygen Delivery Method Room Air Weight: 174.6 kg Body Mass Index (BMI) 58.5 Intake and Output for Last 24 Hours 10/02/18 10/03/18 10/04/18 23:59 23:59 23:59 Intake Total 3467.84 / 3467.84 4341.33 / 4341.33 2427.08 / 2427.08 Output Total 1250 / 1250 Balance 2217.84 / 2217.84 4341.33 / 4341.33 2427.08 / 2427.08 Microbiology Past 72 Hours 09/27/18 21:43 Blood Culture - Final Blood Culture (Wb) - Right Hand No growth in 5 days. 09/27/18 20:59 Blood Culture - Final Blood Culture (Wb) - Anticubital Left No growth in 5 days. Laboratory Tests Past 24 Hrs 10/03/18 19:35 Vancomycin Trough 19.4 H POC Glucose 10/04/18 10/04/18 10/04/18 17:02 11:07 06:35 POC Glucose 161 H 142 H 103 10/04/18 10/03/18 10/03/18 03:00 22:37 17:02 POC Glucose 95 217 H 198 H Medical Necessity - Tobacco Use Smoking Status: Former smoker Tobacco Use: Cigarettes Assessment/Plan All Active Problems Fever (Acute) #1 sepsis secondary to community-acquired pneumonia and acute cystitis secondary to E. coli-infectious diseases has changed the patient's antibiotic coverage to oral antibiotics, again the patient had diarrhea this afternoon and we will await C. difficile toxin results on stool before discharging the patient to residential #2 cellulitis of the right upper thigh-again, infectious diseases changed patient's antibiotic coverage #3 chronic hypoxic respiratory failure secondary to COPD #4 hypertension #5 morbid obesity #6 acute on chronic diastolic congestive heart failure #7 obstructive sleep apnea-noncompliant with BiPAP usage #8 type 2 diabetes #9 generalized debility #10 COPD exacerbation #11 diarrhea-etiology unclear, possibly secondary to antibiotic usage or C. difficile-await C. difficile toxin results on stool Code Visit Inpatient E&M: 85494 Subs Hosp L2
[2018-10-04] MEDS: Albuterol 2.5 MG/3 ML VIAL.NEB. INHALATION (18:52)
[2018-10-04] MEDS: Famotidine 20 MG Tablet PO (21:14)
[2018-10-04] MEDS: Atorvastatin Calcium 20 MG Tablet PO (21:14)
[2018-10-04 21:25] LABS: Bedside Glucose 172 mg/dL (70-110)
[2018-10-05] VITALS (9 sets, daily range): BP systolic 118–145; BP diastolic 56–78; PULSE 71–96; RESP 16–18; TEMP 36.5–36.8; O2SAT 93–97
[2018-10-05 03:06] LABS: Bedside Glucose 112 mg/dL (70-110)
[2018-10-05] MEDS: Gabapentin 300 MG Capsule PO ×2 (06:56→14:22)
[2018-10-05] MEDS: Modafinil 200 MG Tablet 100 MG PO (06:56)
[2018-10-05 07:05] LABS: Bedside Glucose 107 mg/dL (70-110)
[2018-10-05] MEDS: Budesonide Respules 0.5 MG/2 ML AMPUL.NEB. INHALATION (07:09)
[2018-10-05] MEDS: Doxycycline 100 MG CAPSULE PO (08:31)
[2018-10-05] MEDS: Pioglitazone Hydrochloride 30 MG Tablet PO (08:31)
[2018-10-05] MEDS: Citalopram 40 MG TABLET PO (08:31)
[2018-10-05] MEDS: Cefdinir 300 MG Capsule PO (08:32)
[2018-10-05] MEDS: buPROPion (XL) 150 MG TABLET.XL PO (08:32)
[2018-10-05] MEDS: Metoprolol Tartrate 25 MG Tablet PO (08:32)
[2018-10-05] MEDS: Enoxaparin 40 MG/0.4 ML Syringe SC (08:32)
[2018-10-05 11:30] LABS: Bedside Glucose 138 mg/dL (70-110)
--- NOTE | 2018-10-05 11:34 | CASEMGMT ---
SW spoke with patient and told her that she will likely go to [place] today. SW asked if her family is still able to take her and she said her sister will be taking her. Plan: [facility] under skilled level of care on a convalescent stay. Patient's sister will transport her via private vehicle. Patient has portable O2 at home. Sharon BROWN MSW
[2018-10-05] MEDS: Acetaminophen 325 MG Tablet 650 MG PO (14:22)
--- NOTE | 2018-10-05 15:47 | CASEMGMT ---
Social Work Physician feels pt will be more appropriate transport to SNF via ambulance for safe transport. Transport arranged with [facility] for 6pm cigar packer and picker. Pt and sister are agreeable. Nursing aware. EDGAR Trejo
[2018-10-05 17:16] LABS: Bedside Glucose 149 mg/dL (70-110)
--- NOTE | 2018-10-05 17:39 | PCM.TXEXTCAR ---
- Diet 10/01/18 17:18 Diet: Cardiac: Calorie-Controlled Food consistency:: Regular Liquid Consistency:: Regular/Thin Is pt able to select menu?: Yes Diet Comments: 2 GM sodium How many daily calories?: 1800 calorie - Routine Orders/Code Status Routine Lab Work: - - fingerstick blood sugars ACQHS, cover with Humalog sliding scale insulin per protocol: 200-250: 5 units, 251-300: 8 units, 301-350: 12 units, 351-400: 15 units - Wound(s) Right Hip/Buttock Wound Type: Abrasion L breast Wound Type: Abrasion R hip Wound Type: Abrasion right labia/ vulva Wound Type: small white area- tender per pt - Therapies Weight Bearing: Full weight bearing Physical Therapy: Eval and Treat Occupational Therapy: Eval and Treat - Problem/Diagnosis (1) Sepsis Status: Acute Comment: secondary to pneumonia, cellulitis, cystitis Current Visit: Yes (2) Cystitis Status: Acute Current Visit: Yes (3) Chronic respiratory failure with hypoxia Status: Chronic Current Visit: Yes (4) Morbid obesity Status: Chronic Current Visit: Yes (5) Acute on chronic diastolic (congestive) heart failure Status: Chronic Current Visit: Yes (6) Type 2 diabetes mellitus Status: Chronic Current Visit: Yes (7) COPD exacerbation Status: Acute Current Visit: Yes - Allergies/Procedures Done in Hospital Allergies/Adverse Reactions: Allergies acetaminophen [From Percocet] Adverse Reaction (Verified 09/27/18 20:27) Itching fexofenadine [From Astrid] Adverse Reaction (Verified 09/27/18 20:28) Itching glyburide Adverse Reaction (Verified 09/27/18 20:27) Itching hydrocodone [From Vicodin] Adverse Reaction (Verified 09/27/18 20:27) Itching hydromorphone [From Dilaudid] Adverse Reaction (Verified 09/27/18 20:27) Itching meperidine [From Demerol] Adverse Reaction (Verified 09/27/18 20:27) Hives metformin Adverse Reaction (Verified 09/27/18 20:27) Itching oxycodone [From Percocet] Adverse Reaction (Verified 09/27/18 20:27) Itching Procedures: None - Type of Care/Length of Stay Estimated LOS: Convalescent Care Less Than 30 days Type of Care Needed: Skilled Rehab Potential: Good Prognosis: Good - Additional Orders/Day of Discharge H&P will serve as current which was dated: 09/27/18 Day of Discharge: 10/05/18 - Dietary and Speech Recommendations Dietitian Recommendations/Changes: Continue 1800 george low sodium diet - Follow Up Care Primary Care Physician: Anahi Portillo [Primary Care Provider] -
--- NOTE | 2018-10-08 09:13 | PCM.DC.SUM ---
Discharge Date and Diagnosis Date of Admission: 09/27/18 Date of Discharge: 10/05/18 - Primary Discharge Diagnosis #1 sepsis secondary to community-acquired pneumonia and acute cystitis secondary to E. coli #2 cellulitis of the right upper thigh #3 chronic hypoxic respiratory failure secondary to COPD #4 hypertension #5 morbid obesity #6 acute on chronic diastolic congestive heart failure #7 obstructive sleep apnea-noncompliant with BiPAP usage #8 type 2 diabetes #9 generalized debility #10 COPD exacerbation #11 pulmonary hypertension - Secondary Discharge Diagnosis Chronic Problems Chronic respiratory failure with hypoxia (Chronic) Morbid obesity (Chronic) Acute on chronic diastolic (congestive) heart failure (Chronic) Type 2 diabetes mellitus (Chronic) Hospital Course and Treatment Operations: None Procedures: 2-D Echocardiogram Summary of Care Provided: The patient is a 63 year old F was seen in the emergency room at [facility] with a chief complaint of malaise. Work-up of the patient revealed her to have a fever and increased respiratory rate, she also complained of shortness of breath. Sepsis work-up was instituted, chest x-ray showed questionable bilateral infiltrates, patient was noted to have a leukocytosis on her labs, patient's chemistry panel was remarkable for an elevated blood sugar 191 and a slightly elevated alkaline phosphatase. Urinalysis revealed +3 bacteria, positive nitrites were noted, elevated leukocyte esterase was noted. Patient was felt to have sepsis due to community-acquired pneumonia and urinary tract infection, she was admitted to PCU with telemetry and placed on IV antibiotics. Patient had a history of congestive heart failure and echocardiogram was obtained which showed an ejection fraction of 47% with evidence of pulmonary hypertension. Patient was treated for an acute flareup of chronic diastolic congestive heart failure while hospitalized, she was seen in consultation by infectious diseases and pulmonary medicine also. Patient's urine culture resulted in E. coli, during her hospitalization, patient developed a reddened area over her right upper thigh and right lateral thigh area, this was felt to be cellulitis and antibiotics were adjusted to treat this also. Patient was seen by PT and OT and it was recommended that the patient be considered for short-term rehab services and a correction facility-patient agreed. On 10/05/2018, patient was seen and examined: On examination she appeared in good health and spirits. Vital signs as documented. Skin warm and dry, there is a area of rash over the patient's right upper outer thigh area noted to be present-several centimeters across and several centimeters in length.. Neck without JVD. Lungs clear. Heart exam notable for regular rhythm, normal sounds and absence of murmurs, rubs or gallops. Abdomen unremarkable and without evidence of organomegaly, masses, or abdominal aortic enlargement. Extremities nonedematous. Neuro: Cranial nerves II through XII are grossly intact, no focal motor deficits were noted, sensation to light touch and pinprick is intact. Psych: Patient is alert and oriented x3, she does not appear anxious or depressed On 10/05/2018, patient was seen and examined and felt to be in stable condition for discharge to an extended care facility - Physical Exam Vital Signs Temp Pulse Resp BP Pulse Ox 98.2 F 71 18 118/56 L 93 10/05/18 14:27 10/05/18 14:58 10/05/18 14:27 10/05/18 14:27 10/05/18 14:27 Oxygen Flow Rate (L/min) 2 Oxygen Delivery Method Nasal Cannula Weight: 174.6 kg Body Mass Index (BMI) 58.5 Microbiology Past 72 Hours 10/02/18 20:20 Blood Culture - Final Blood Culture (Wb) - Anticubital Right No growth in 5 days. 10/02/18 20:20 Blood Culture - Final Blood Culture (Wb) - Left Wrist No growth in 5 days. Home Medications: Medications to take at Discharge Albuterol Aerosols [Ventolin Aerosols] 2.5 mg INHALATION Q6H PRN PRN 09/27/18 Bupropion HCl [Bupropion Xl] 150 mg PO BID 09/27/18 Citalopram [Celexa] 40 mg PO DAILY 09/27/18 Cyclobenzaprine HCl 10 mg PO TID PRN 09/27/18 Gabapentin [Neurontin] 300 mg PO TID 09/27/18 Insulin Glargine,Hum.rec.anlog [Toujeo Solostar] 20 unit SQ QHS 09/27/18 Ranitidine [Zantac] 150 mg PO QHS 09/27/18 Simvastatin 40 mg PO QHS 09/27/18 Acetaminophen [Tylenol Tablet] 650 mg PO Q6H PRN PRN tab 10/05/18 Budesonide/Formoterol 160/4.5 [Symbicort 160/4.5 Mcg Inhaler (SP)] 2 puff INHALATION BID #1 inhaler 10/05/18 Cefdinir [Omnicef [equiv]] 300 mg PO Q12 #7 cap 10/05/18 Citalopram [Celexa] 40 mg PO DAILY tab 10/05/18 Doxycycline 100 mg PO BID #7 cap 10/05/18 Furosemide [Lasix] 40 mg PO DAILY #1 tab 10/05/18 Metoprolol Tartrate [Lopressor (beta tino)] 25 mg PO BID tab 10/05/18 Modafinil [Provigil] 100 mg PO DAILY@0600 tab 10/05/18 Pioglitazone [Actos] 30 mg PO DAILY@0800 tab 10/05/18 Potassium Chloride [K-Dur] 20 meq PO BIDCM tab 10/05/18 Following Prescrptions Were Given to Patient: Doxycycline 100 mg PO BID #7 cap Furosemide [Lasix] 40 mg PO DAILY #1 tab Cefdinir [Omnicef [equiv]] 300 mg PO Q12 #7 cap Budesonide/Formoterol 160/4.5 [Symbicort 160/4.5 Mcg Inhaler (SP)] 2 puff INHALATION BID #1 inhaler Primary Care Physician: Anahi Portillo [Primary Care Provider] - Disposition: [facility] facility Minutes spent on discharge:: 36 Patient Condition:: Stable Medical Necessity - Tobacco Use Smoking Status: Former smoker Tobacco Use: Cigarettes Meaningful Use Info Meaningful Use Diagnoses (Choose all that apply): CHF - CHF BRANDY/ARB ordered at discharge?: No Reason BRANDY/ARB not ordered?: Allergy - Patient has diastolic congestive heart failure and does not require BRANDY/ARB Documented LVEF (%): 47 Code Visit Inpatient E&M: 15944 Disch Hosp
== END 2018-10-05 18:08 | disposition skilled nursing facility (03) | DRG 871 ==
LOC: ED 21:10 → PCU 22:37
PROVIDERS: Hospitalist; Internal Medicine; Admitting Provider Student in an Organized Health Care Education/Training Program; Emergency Provider Emergency Medicine; Family Provider Family Medicine; PCP Family Medicine; Visit Provider Internal Medicine
DX: A41.9 Sepsis, unspecified organism (principal); I50.33 Acute on chronic diastolic (congestive) heart failure; J18.9 Pneumonia, unspecified organism; J96.11 Chronic respiratory failure with hypoxia; Z68.43 Body mass index [BMI] 50.0-59.9, adult; L03.115 Cellulitis of right lower limb; J44.0 Chronic obstructive pulmonary disease with (acute) lower respiratory infection; N30.00 Acute cystitis without hematuria; J96.12 Chronic respiratory failure with hypercapnia; I11.0 Hypertensive heart disease with heart failure; Z99.81 Dependence on supplemental oxygen; B96.20 Unspecified Escherichia coli [E. coli] as the cause of diseases classified elsewhere; E66.01 Morbid (severe) obesity due to excess calories; G47.33 Obstructive sleep apnea (adult) (pediatric); I27.20 Pulmonary hypertension, unspecified; E78.5 Hyperlipidemia, unspecified; E11.42 Type 2 diabetes mellitus with diabetic polyneuropathy; E11.65 Type 2 diabetes mellitus with hyperglycemia; Z16.23 Resistance to quinolones and fluoroquinolones; Z87.891 Personal history of nicotine dependence; Z91.19 Patient's noncompliance with other medical treatment and regimen; Z79.4 Long term (current) use of insulin; Z79.899 Other long term (current) drug therapy
CPT/HCPCS: 36415; 36600; 71045; 73700; 76882; 80048; 80053; 80076; 80202; 81001; 82803; 82947; 82962; 83036; 83605; 83735; 83880; 84100; 85025; 85652; 86140; 87040; 87077; 87086; 87088; 87186; 87449; 87493; 93005; 93306; 94640; 97110; 97163; 97166; 97530; 97535; 97802; 99285; J7030; J7040; J7050; P9612; Q9957; A4216; C8929; J0696; J1940

== ENCOUNTER 2020-08-28 18:59 | Inpatient (IN) | payer MEDICARE, SELFPAY ==
[2020-08-28] VITALS (9 sets, daily range): BP systolic 92–139; BP diastolic 48–120; PULSE 65–109; RESP 17–27; TEMP 36.6–39.4; O2SAT 86–96; BMI 58.6; BMI 59.0
--- NOTE | 2020-08-28 19:09 | EKG12_ITS ---
Test Reason : DYSRHYTHMIA Blood Pressure : / mmHG Vent. Rate : 104 BPM Atrial Rate : 104 BPM P-R Int : 154 ms QRS Dur : 088 ms QT Int : 328 ms P-R-T Axes : 054 040 024 degrees QTc Int : 431 ms Sinus tachycardia Otherwise normal ECG Confirmed by ONEL ABREU, PIERRE ([id number]), manuscript editor TANI DISLA ([id number]) on 09/02/2020 12:47:46 PM Referred By: DORA Confirmed By:PIERRE SYKES MD
--- NOTE | 2020-08-28 19:18 | EX.ED.DYSGE1 ---
HPI History of Present Illness Chief Complaint: Alt LOC Detail of Chief Complaint: Fever Informant: patient Onset/Context/Timing Onset: Yesterday Context: Gradual Onset Timing: Continuous Current Severity: Mild Maximum Severity: Mild Narrative Narrative: 65-year-old morbidly obese diabetic female with a history of A. fib denies being on any blood thinners. States she has not felt well last 2 days. Has a fever as high as 103. Denies nausea or vomiting. Denies a cough. Denies shortness of breath or chest pain. Said she had some mild dysuria. Denies any recent hospitalization. Lives at home with her . Prior similar symptoms: No Recent Illness/Hospitalization: No PFSH PFSH Home Medications albuterol sulfate 2.5 mg INHALATION Q6H PRN PRN 09/27/18 [History Last Taken Unknown] bupropion HCl [Wellbutrin XL] 150 mg PO BID 09/27/18 [History Last Taken 09/27/18 16:00] citalopram 40 mg PO DAILY 09/27/18 [History Last Taken 09/27/18 10:00] cyclobenzaprine 10 mg PO TID PRN 09/27/18 [History Last Taken 09/27/18 16:00] gabapentin 300 mg PO TID 09/27/18 [History Last Taken 09/27/18 16:00] insulin glargine U-300 conc 20 unit SQ QHS 09/27/18 [History Last Taken 09/26/18] ranitidine HCl 150 mg PO QHS 09/27/18 [History Last Taken 09/26/18] simvastatin 40 mg PO QHS 09/27/18 [History Last Taken 09/26/18 16:00] acetaminophen 650 mg PO Q6H PRN PRN tab 10/05/18 [Rx Last Taken Unknown] budesonide-formoterol 2 puff INHALATION BID #1 inhaler 10/05/18 [Rx Last Taken Unknown] furosemide 40 mg PO DAILY #1 tab 10/05/18 [Rx Last Taken Unknown] metoprolol tartrate 25 mg PO BID tab 10/05/18 [Rx Last Taken Unknown] potassium chloride 20 meq PO BIDCM tab 10/05/18 [Rx Last Taken Unknown] pioglitazone [Actos] 30 mg PO DAILY@0800 08/28/20 [History Last Taken Unknown] Allergy/AdvReac Type Severity Reaction Status Date / Time fexofenadine [From Astrid] AdvReac Itching Verified 05/02/19 11:54 glyburide AdvReac Itching Verified 05/02/19 11:54 hydrocodone [From Vicodin] AdvReac Itching Verified 05/02/19 11:54 hydromorphone [From Dilaudid] AdvReac Itching Verified 05/02/19 11:54 meperidine [From Demerol] AdvReac Hives Verified 05/02/19 11:54 metformin AdvReac Itching Verified 05/02/19 11:54 oxycodone [From Percocet] AdvReac Itching Verified 05/02/19 11:54 Social History Smoking Status: Former smoker ROS ROS ED ROS Narrative Fever and generalized weakness. Mild dysuria. Review of Systems ROS Unobtainable: Denies due to encephalopathy Constitutional Constitutional ED: Reports chills and fever(s) Eyes Eyes: Denies change in vision ENT ENT ED: Denies ear pain or sore throat Cardiovascular Cardiovascular: Denies chest pain Respiratory/Chest Respiratory/Chest: Denies cough or dyspnea Gastrointestinal Gastrointestinal: Denies abdominal pain, diarrhea, nausea or vomiting Genitourinary Genitourinary ED: Reports dysuria; Denies hematuria or urinary frequency Musculoskeletal Musculoskeletal: Denies arthralgias or myalgias Integumentary Denies rash Neurologic Neurologic: Denies headache(s) Psychiatric Psychiatric: Denies depression Endocrine Endocrinology: Denies polyuria Allergic/Immunologic Allergic/Immunologic ED: Denies urticaria EXAM Physical Exam Narrative Exam Narrative: 65-year-old female vital signs are stable her heart rate is 109 and her temperature is 103. She is warm to the touch. She may be septic. H EENT exam unremarkable. Mildly dry mucous memories. Neck nontender no meningismus. Lungs clear to auscultation bilaterally. Heart tachycardic rate about 105 no murmur. Abdomen morbidly obese but soft no peritoneal signs. Nontender. Positive bowel sounds. No rashes. No sores. Patient moving all 4 extremities. Dorsi plantar flexion intact. 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 Back nontender no lesions no sores no rashes. Neurologically she is awake and alert answering questions and following commands. She has no focal motor deficits. Const Vital Signs: 08/28/20 19:00 08/28/20 19:05 08/28/20 19:41 Temperature 103.0 F H 103.0 F H 103.0 F H Temperature Source Axillary Axillary Oral Pulse Rate 109 H 107 H 93 Respiratory Rate 22 H 18 27 H Respiratory Effort Blood Pressure 139/120 H 139/120 H 132/101 H Blood Pressure Mean 126 126 111 Pulse Ox 86 92 95 Oxygen Delivery Method Room Air Nasal Cannula Nasal Cannula Oxygen Flow Rate (L/min) 4 4 08/28/20 19:43 08/28/20 19:50 08/28/20 20:42 Temperature 102.8 F H 101.9 F H Temperature Source Axillary Temporal Pulse Rate 65 Respiratory Rate 17 Respiratory Effort Short of Breath Blood Pressure 92/48 L Blood Pressure Mean 62 Pulse Ox 96 96 Oxygen Delivery Method Nasal Cannula Nasal Cannula Oxygen Flow Rate (L/min) 4 4 08/28/20 21:02 Temperature 99.6 F H Temperature Source Temporal Pulse Rate 96 Respiratory Rate 25 H Respiratory Effort Blood Pressure 107/95 H Blood Pressure Mean 99 Pulse Ox 95 Oxygen Delivery Method Nasal Cannula Oxygen Flow Rate (L/min) 4 Positive well nourished and well developed General Appearance ED: well developed; Negative for cyanotic or diaphoretic HEENT Reports dry mucous membranes Negative for trauma or tenderness Mouth ED: Yes dry mucous membranes Mouth: dry mucous membranes Eyes PERRL and EOMs intact bilaterally Neck no lymphadenopathy, supple and no JVD General: Negative for tenderness Chest Wall inspection of chest normal and palpation of chest normal Resp normal respiratory effort and clear to auscultation bilaterally Auscultation: Negative for rales or rhonchi Cardio regular rhythm and no murmurs Rate: tachycardic GI normal to inspection, nondistended, normoactive bowel sounds, non-tender, non-distended and no masses Inspection: Negative for abdominal distention Auscultation: normoactive bowel sounds Palpation: soft; Negative for tender, guarding or rebound tenderness present Back/Spine no CVA tenderness Extremity normal to inspection General Extremety ED: Negative for edema or tenderness General Extremity: Negative for edema Neuro oriented x3 and CN's II-XII intact bilaterally Sensorium / Orientation: alert; Negative for lethargic or stuporous Motor Exam: strength 5/5 throughout; Negative for general weakness Psych mental status grossly normal Skin no rashes or lesions noted and no wounds MDM MDM MDM Narrative Medical decision making narrative: 65-year-old with a fever and decreased urination. Clinically she looks dehydrated. She will be put through sepsis work-up. IV fluids and p.o. Tylenol. Most likely will need admission. Patient does look improved after IV fluids and Tylenol. However I am concerned with her elevated white count of 16 and her fever that she may have an underlying infection of bacterial nature that we know of a specific source for. I will speak to the hospitalist and admit her. I will discuss with the hospitalist empiric antibiotics being started. Lab Data Attestation: I reviewed the patient's lab results. Lab results narrative: White count elevated 16,000. Hemoglobin 11.7. Electrolytes show a sodium of 133. Gap of 5. Creatinine 0.7. Glucose of 170. Lactic acid of 1.3. Liver enzymes normal. PT/INR normal. Chest x-ray chronic changes. Lactic acid 1.3. UA negative. Labs: Laboratory Results - last 24 hr 08/28/20 08/28/20 08/28/20 19:08 19:08 19:08 WBC 16.3 H RBC 4.56 Hgb 11.7 L Hct 39.3 MCV 86.2 MCH 25.7 L MCHC 29.8 L RDW Std Deviation 45.4 H RDW Coeff of Hemanth 14.5 Plt Count 251 MPV 8.4 Immature Gran % (Auto) 0.700 Neut % (Auto) 87.6 H Lymph % (Auto) 4.7 L [place] % (Auto) 6.5 Eos % (Auto) 0.3 Baso % (Auto) 0.2 Absolute Neuts (auto) 14.3 H Absolute Lymphs (auto) 0.76 L Nucleated RBC % 0 PT INR APTT Sodium 133 L Potassium 4.6 Chloride 95 L Carbon Dioxide 33.0 H Anion Gap 5 BUN 9 Creatinine 0.76 Estim Creat Clear Calc 76.43 Est GFR (MDRD) Af Amer 99 Est GFR (MDRD) Non-Af 82 BUN/Creatinine Ratio 11.8 Glucose 170 H Lactic Acid 1.3 Calcium 8.8 Total Bilirubin 0.70 AST 15 ALT 14 Alkaline Phosphatase 138 H Total Protein 7.8 Albumin 3.0 L Globulin 4.8 H Albumin/Globulin Ratio 0.6 L Urine Color Urine Clarity Urine pH Ur Specific [place] Urine Protein Urine Glucose (UA) Urine Ketones Urine Occult Blood Urine Nitrite Urine Bilirubin Urine Urobilinogen Ur Leukocyte Esterase Urine RBC Urine WBC Ur Squamous Epith Cells Urine Bacteria Urine Mucus 08/28/20 08/28/20 19:35 20:24 WBC RBC Hgb Hct MCV MCH MCHC RDW Std Deviation RDW Coeff of Hemanth Plt Count MPV Immature Gran % (Auto) Neut % (Auto) Lymph % (Auto) [place] % (Auto) Eos % (Auto) Baso % (Auto) Absolute Neuts (auto) Absolute Lymphs (auto) Nucleated RBC % PT 14.6 INR 1.2 APTT 29.7 Sodium Potassium Chloride Carbon Dioxide Anion Gap BUN Creatinine Estim Creat Clear Calc Est GFR (MDRD) Af Amer Est GFR (MDRD) Non-Af BUN/Creatinine Ratio Glucose Lactic Acid Calcium Total Bilirubin AST ALT Alkaline Phosphatase Total Protein Albumin Globulin Albumin/Globulin Ratio Urine Color Yellow Urine Clarity Clear Urine pH 7.0 Ur Specific [place] 1.010 Urine Protein 30 H Urine Glucose (UA) Normal Urine Ketones 5 H Urine Occult Blood Negative Urine Nitrite Negative Urine Bilirubin 1 H Urine Urobilinogen 1 H Ur Leukocyte Esterase 25 H Urine RBC 0 SEEN Urine WBC 0-5 SEEN Ur Squamous Epith Cells 0 SEEN Urine Bacteria 0 SEEN Urine Mucus 1+ Radiography Chest X-Ray - ED: 1 View, Read by ED Physician, Read by Radiologist, Heart, Lungs, Mediastinum, Bony Structures, No Acute Disease and Chronic Changes Diagnostic Testing: Radiology Impression Chest X-Ray 08/28/20 19:50 IMPRESSION: Limited study by the patient''s body habitus. Borderline cardiomegaly with mild pulmonary vascular congestion. No definite airspace disease in the bilateral lungs. No sizable pleural effusion. No pneumothorax. Trachea midline. Multilevel thoracic spondylosis and mild dextroscoliosis. Electronically Signed: Lamonte Styles MD at 20:08 EDT Tel , Service support , Rhythm Strip Rhythm Strip: Sinus Tach Rate: 104 Ectopy: None EKG Initial EKG: Attestation: I personally reviewed and interpreted this EKG as follows: Interpretation: Sinus Rhythm, No Acute Injury Pattern and Sinus Tachycardia Comments: Sinus tachycardia rate of 104 no acute signs of SD nor ischemia. Discharge Plan Triage Chief Complaint: Alt LOC ED Provider: Shaheen Lucero Dx/Rx/DC Orders Clinical Impression: Fever Prescriptions: No Action cyclobenzaprine 10 MG tablet 10 mg PO TID PRN (Reason: Spasms) RF: 0 albuterol sulfate 2.5 MG/3 ML solution for nebulization 2.5 mg inhalation Q6H PRN PRN (Reason: Sob &/Or Wheezing) RF: 0 simvastatin 40 MG tablet 40 mg PO QHS RF: 0 ranitidine HCl 150 MG tablet 150 mg PO QHS RF: 0 gabapentin 300 MG capsule 300 mg PO TID RF: 0 bupropion HCl [Wellbutrin XL] 150 MG tablet extended release 24 hr 150 mg PO BID RF: 0 citalopram 40 MG tablet 40 mg PO DAILY RF: 0 insulin glargine U-300 conc 300 UNIT/ML insulin pen 20 unit SQ QHS RF: 0 acetaminophen 325 MG tablet 650 mg PO Q6H PRN PRN (Reason: Pain/Fever) RF: 0 potassium chloride 20 MEQ tablet 20 meq PO BIDCM RF: 0 metoprolol tartrate 25 MG tablet 25 mg PO BID RF: 0 furosemide 40 MG tablet 40 mg PO DAILY Qty: 1 RF: 0 budesonide-formoterol 1 INHALER inhaler 2 puff inhalation BID Qty: 1 RF: 0 pioglitazone [Actos] 30 MG tablet 30 mg PO DAILY@0800 RF: 0 Primary Care Provider: Anahi Portillo Referrals: Anahi Portillo DO [Primary Care Provider] - Disposition Disposition: Acute Care [facility]
[2020-08-28 19:23] LABS: Absolute Lymphocyte Count 0.76 X10^3/uL (0.83-4.51); Absolute Neutrophil Count 14.3 X10^3/uL (2.0-7.7); Basophil# 0.04 X10^3/uL; Basophil% 0.2 % (0-1); Eosinophil# 0.05 X10^3/uL; Eosinophils% 0.3 % (0-5); Hematocrit 39.3 % (37-47); Hemoglobin 11.7 g/dL (12.0-15.0); Lymphocyte # 0.76 X10^3/ul (0.83-4.51); Lymphocyte % 4.7 % (19-41); Mean Corp Hgb Conc 29.8 g/dL (32-36); Mean Corpuscular Hgb 25.7 pg (27.0-32.0); Mean Corpuscular Volume 86.2 fL (81-99); Mean Platelet Vol. 8.4 fl (6.2-12.0); Monocyte# 1.05 X10^3/uL; Monocyte% 6.5 % (0-10); NRBC Flagged by Analyzer 0 % (0-5); Neutrophil # 14.25 X10^3/uL (2.7-7.7); Neutrophil % 87.6 % (47-70); Platelet Count 251 K/mm3 (150-450); RBC Distribution Width CV 14.5 % (11.6-14.6); RBC Distribution Width SD 45.4 fl (35.1-43.9); Red Blood Count 4.56 M/mm3 (4.2-5.4); White Blood Count 16.3 K/mm3 (4.4-11.0)
[2020-08-28 19:39] LABS: ALB/GLOB Ratio 0.6 RATIO (0.9-2.4); AST(SGOT) 15 U/L (15-37); Alanine Aminotransfer ALT/SGPT 14 U/L (13-56); Alkaline Phosphatase 138 U/L (45-117); Anion Gap 5 (5-15); BUN 9 mg/dL (7-18); BUN/Creat Ratio 11.8 RATIO (10-20); Calcium,Total 8.8 mg/dL (8.5-10.1); Chloride 95 mmol/L (98-107); Creatinine, Serum 0.76 mg/dL (0.55-1.02); EST Glomerular Filtration Rate 82 mL/min (>60); Est Glom Filt Rate - Afr Amer 99 mL/min (>60); Estimated Creatinine Clearance 76.43 ml/min; Globulin 4.8 g/dL (2.2-4.2); Glucose 170 mg/dL (74-106); Potassium 4.6 mmol/L (3.5-5.1); Protein, Total 7.8 g/dL (6.4-8.2); Sodium Level 133 mmol/L (136-145)
[2020-08-28] MEDS: 0.9% Normal Saline 1,000 ML 999 ML IV (19:39)
[2020-08-28] MEDS: Acetaminophen 500 MG Tablet 1000 MG PO (19:40)
[2020-08-28 19:46] LABS: Lactic Acid 1.3 mmol/L (0.4-1.9)
--- NOTE | 2020-08-28 19:50 | RAD_ITS ---
STUDY: X-RAY CHEST REASON FOR EXAM: Female, 65 years old. fever TECHNIQUE: 1 view COMPARISON: 09/27/2018 FINDINGS: Please see the impression. RAD/Chest 1 View (Portable) IMPRESSION: Limited study by the patient''s body habitus. Borderline cardiomegaly with mild pulmonary vascular congestion. No definite airspace disease in the bilateral lungs. No sizable pleural effusion. No pneumothorax. Trachea midline. Multilevel thoracic spondylosis and mild dextroscoliosis. Electronically Signed: Lamonte Styles MD at 20:08 EDT Tel , Service support ,
[2020-08-28 20:16] LABS: International Normalized Ratio 1.2; Prothrombin Time (Protime)PT. 14.6 SECONDS (11.7-14.9)
[2020-08-28 20:17] LABS: Partial Thromboplast Time 29.7 Seconds (24.1-36.2)
[2020-08-28 20:28] LABS: Bacteria 0 SEEN /hpf (None Seen); Red Blood Cells-Urine 0 SEEN /hpf (0-5); Squamous Epithelial Cells - UA 0 SEEN /hpf (5-10)
[2020-08-28 20:48] LABS: Color, Urine Yellow (Yellow); Glucose, Dipstick Normal (Normal); Ketone-Dipstick 5 mg/dl (Negative); Leukocyte Esterase-Dipstick 25 /ul (Negative); Nitrite-Dipstick Negative (Negative); Occult Blood-Urine Negative /ul (Negative); Protein-Dipstick 30 mg/dl (Negative); Urine Clarity Clear (Clear); Urine Urobilinogen 1 mg/dl (Normal)
[2020-08-28 20:56] LABS: Urine Bilirubin Dipstick 1 mg/dL (Negative)
[2020-08-28 20:59] LABS: Mucous, Urine 1+ /hpf (<or=2+); White Blood Cells 0-5 SEEN /hpf (0-5)
--- NOTE | 2020-08-28 21:42 | HP.PCM.HOS_ITS ---
HPI - General General Date of Admission: 08/29/20 HPI Narrative JANNETTE MENDOZA, is a 65 F with an extensive PMH as outlined who presents with a complaint of fever and decreased urine output as well as generalised malaise for the past 2 days prior to admission. She had a fever as high as 103F at home; she denied any nausea, vomiting, chest pain, palpitations, dizziness or any urinary systems. REview of systems were otherwise negative. Vitals showed BP of 107/96, with VA of 96, RR of 25 and temp of 99.6F at time of review. CBC showed wbc of 16.3 with Hb of 11.7 and platelets of 251. Urinalysis was negative for UTI, and chemistry was significant for sodium of 133, and glucose of 170. BLood cultures were obtained and she was started on broad spectrum antibiotics. She is being admitted to be managed for SIRS criteria with unclear source of infection. [facility] Medical History (Updated 08/28/20 @ 23:46 by Natali Sampson RN) Anxiety Asthma Atrial fibrillation Depression Diabetes Hearing loss, right Hypertension Migraines On home oxygen therapy Pancreatitis Home Medications albuterol sulfate 2.5 mg INHALATION Q6H PRN PRN 09/27/18 [History Last Taken Unknown] bupropion HCl [Wellbutrin XL] 150 mg PO BID 09/27/18 [History Last Taken 09/27/18 16:00] citalopram 40 mg PO DAILY 09/27/18 [History Last Taken 09/27/18 10:00] cyclobenzaprine 10 mg PO TID PRN 09/27/18 [History Last Taken 09/27/18 16:00] gabapentin 300 mg PO TID 09/27/18 [History Last Taken 09/27/18 16:00] insulin glargine U-300 conc 20 unit SQ QHS 09/27/18 [History Last Taken 09/26/18] ranitidine HCl 150 mg PO QHS 09/27/18 [History Last Taken 09/26/18] simvastatin 40 mg PO QHS 09/27/18 [History Last Taken 09/26/18 16:00] acetaminophen 650 mg PO Q6H PRN PRN tab 10/05/18 [Rx Last Taken Unknown] budesonide-formoterol 2 puff INHALATION BID #1 inhaler 10/05/18 [Rx Last Taken Unknown] furosemide 40 mg PO DAILY #1 tab 10/05/18 [Rx Last Taken Unknown] metoprolol tartrate 25 mg PO BID tab 10/05/18 [Rx Last Taken Unknown] potassium chloride 20 meq PO BIDCM tab 10/05/18 [Rx Last Taken Unknown] pioglitazone [Actos] 30 mg PO DAILY@0800 08/28/20 [History Last Taken Unknown] Allergy/AdvReac Type Severity Reaction Status Date / Time fexofenadine [From Astrid] AdvReac Itching Verified 05/02/19 11:54 glyburide AdvReac Itching Verified 05/02/19 11:54 hydrocodone [From Vicodin] AdvReac Itching Verified 05/02/19 11:54 hydromorphone [From Dilaudid] AdvReac Itching Verified 05/02/19 11:54 meperidine [From Demerol] AdvReac Hives Verified 05/02/19 11:54 metformin AdvReac Itching Verified 05/02/19 11:54 oxycodone [From Percocet] AdvReac Itching Verified 05/02/19 11:54 Social History Smoking Status: Former smoker ROS Review of Systems ROS Unobtainable: Denies due to encephalopathy Constitutional Constitutional: Reports chills, fatigue, fever(s), malaise and weakness; Denies anorexia, change in weight or night sweats Eyes Eyes: Denies blurry vision or double vision ENT HEENT: Denies ear pain, headache(s), nasal congestion or nasal discharge Cardiovascular Cardiovascular: Denies chest pain, dyspnea on exertion, edema, lightheadedness, orthopnea, palpitations, paroxysmal nocturnal dyspnea or rapid heart rate Respiratory/Chest Respiratory/Chest: Denies cough, dyspnea, excessive phlegm production, hemoptysis, productive cough, shortness of breath at rest, shortness of breath with exertion or wheezing Gastrointestinal Gastrointestinal: Denies abdominal pain, coffee ground emesis, diarrhea, dyspepsia, nausea or vomiting Genitourinary Genitourinary: Denies burning urination, dysuria or urinary frequency Musculoskeletal Musculoskeletal: Denies arthralgias, joint stiffness or joint swelling Neurologic Neurologic: Denies abnormal gait, dizziness, focal weakness, numbness or seizures Psychiatric Psychiatric: Denies anxiety or depression Endocrine Endocrinology: Denies change in body appearance Hematologic/Lymphatic Hematologic/Lymphatic: Denies anemia Vital Signs Vital Signs Vital Signs: 08/28/20 19:00 08/28/20 19:05 08/28/20 19:41 Temperature 103.0 F H 103.0 F H 103.0 F H Temperature Source Axillary Axillary Oral Pulse Rate 109 H 107 H 93 Respiratory Rate 22 H 18 27 H Respiratory Effort Blood Pressure 139/120 H 139/120 H 132/101 H Blood Pressure Mean 126 126 111 Pulse Ox 86 92 95 Oxygen Delivery Method Room Air Nasal Cannula Nasal Cannula Oxygen Flow Rate (L/min) 4 4 08/28/20 19:43 08/28/20 19:50 08/28/20 20:42 Temperature 102.8 F H 101.9 F H Temperature Source Axillary Temporal Pulse Rate 65 Respiratory Rate 17 Respiratory Effort Short of Breath Blood Pressure 92/48 L Blood Pressure Mean 62 Pulse Ox 96 96 Oxygen Delivery Method Nasal Cannula Nasal Cannula Oxygen Flow Rate (L/min) 4 4 08/28/20 21:02 Temperature 99.6 F H Temperature Source Temporal Pulse Rate 96 Respiratory Rate 25 H Respiratory Effort Blood Pressure 107/95 H Blood Pressure Mean 99 Pulse Ox 95 Oxygen Delivery Method Nasal Cannula Oxygen Flow Rate (L/min) 4 Weight Weight: 385 lb 12.943 oz Body Mass Index (BMI) 58.6 Physical Exam Const alert, oriented x3 and no apparent distress Constitutional Narrative: super morbid obesity General Appearance: cooperative HEENT normocephalic, head/scalp atraumatic, hearing grossly normal bilaterally and moist oral mucous membranes Eyes PERRL, EOMs intact bilaterally and conjunctivae normal Neck no lymphadenopathy, supple, no JVD and no carotid bruits Resp normal respiratory effort, no retractions, no use of accessory muscles and clear to auscultation bilaterally Resp Narrative: tachypneic Cardio regular rate, regular rhythm, S1 normal heart sound and S2 normal heart sound GI normal to inspection, nondistended, normoactive bowel sounds, soft to palpation, non-tender and non-distended Extremity normal to inspection, full ROM and no clubbing, cyanosis or edema Peripheral Pulses: Yes pulses 2+ throughout Skin no rashes or lesions noted Neuro oriented x3 Sensorium / Orientation: awake and alert Psych affect normal Results Lab / Micro Data Result Diagrams: 08/29/20 05:20 08/29/20 05:20 Labs: Laboratory Results - last 24 hr 08/28/20 19:08: WBC 16.3 H, RBC 4.56, Hgb 11.7 L, Hct 39.3, MCV 86.2, MCH 25.7 L , MCHC 29.8 L, RDW Std Deviation 45.4 H, RDW Coeff of Hemanth 14.5, Plt Count 251, MPV 8.4, Immature Gran % (Auto) 0.700, Neut % (Auto) 87.6 H, Lymph % (Auto) 4.7 L, [place] % (Auto) 6.5, Eos % (Auto) 0.3, Baso % (Auto) 0.2, Absolute Neuts (auto) 14.3 H, Absolute Lymphs (auto) 0.76 L, Nucleated RBC % 0 08/28/20 19:08: Sodium 133 L, Potassium 4.6, Chloride 95 L, Carbon Dioxide 33.0 H, Anion Gap 5, BUN 9, Creatinine 0.76, Estim Creat Clear Calc 76.43, Est GFR (MDRD) Af Amer 99, Est GFR (MDRD) Non-Af 82, BUN/Creatinine Ratio 11.8, Glucose 170 H, Calcium 8.8, Total Bilirubin 0.70, AST 15, ALT 14, Alkaline Phosphatase 138 H, Total Protein 7.8, Albumin 3.0 L, Globulin 4.8 H, Albumin/Globulin Ratio 0.6 L 08/28/20 19:08: Lactic Acid 1.3 08/28/20 19:35: PT 14.6, INR 1.2, APTT 29.7 08/28/20 20:24: Urine Color Yellow, Urine Clarity Clear, Urine pH 7.0, Ur Specific [place] 1.010, Urine Protein 30 H, Urine Glucose (UA) Normal, Urine Ketones 5 H, Urine Occult Blood Negative, Urine Nitrite Negative, Urine Bilirubin 1 H, Urine Urobilinogen 1 H, Ur Leukocyte Esterase 25 H, Urine RBC 0 SEEN, Urine WBC 0-5 SEEN, Ur Squamous Epith Cells 0 SEEN, Urine Bacteria 0 SEEN, Urine Mucus 1+ Micro: Microbiology 08/28/20 20:45 Interface Orders SARS-CoV-2 Antigen (Rapid) - Final Rhythm Strip Rhythm Strip: Sinus Tach Rate: 104 Ectopy: None Radiology Impression Chest X-Ray 08/28/20 19:50 IMPRESSION: Limited study by the patient''s body habitus. Borderline cardiomegaly with mild pulmonary vascular congestion. No definite airspace disease in the bilateral lungs. No sizable pleural effusion. No pneumothorax. Trachea midline. Multilevel thoracic spondylosis and mild dextroscoliosis. Electronically Signed: Lamonte Styles MD at 20:08 EDT Tel , Service support , Assessment & Plan Assessment/Plan (1) Fever: (2) SIRS (systemic inflammatory response syndrome): PLAN: #SIRS criteria with unclear source of infection * admit to PCU with telemetry * patient is tachypneic and has elevated wbc, but no clear source of infection * blood cultures obtained; urine showed no evidence of UTI * start on IV vancomycina nd zosyn empirically * hydrate gently with iVF * tylenol for fever and pain * #Chronic HFpEF: not in exacerbation. Stable #Type 2 diabetes mellitus with peripheral neuropathy * on insulin glargine 20 units qhs and pioglitazone * ISS. Accuchecks ACHS * on gabapentin * #Hyperlipidemia: on statin. #Hypertension: on metoprolol #Super morbid obesity: BMI is 58.7. Complicates acute care, expected recovery and prognosis DVT prophylaxis: lovenox Code status:full code * Patient counseled extensively about different types of CODE STATUS including full code, DNR CCA and DNR CCA. Patient elects to be full code. Total [id number] time 16 minutes. Charges/Coding Visit Charges Inpatient E&M: 97133 Init Hosp L3 Procedures Hospitalists Procedures: 68355 Advncd Care Plan 30 Min
--- NOTE | 2020-08-28 22:12 | ED.RN ---
waiting on pharm for atb to start before goes to floor. Hospitalist in room now
--- NOTE | 2020-08-28 22:25 | NURSING ---
zosyn started still waiting on vanc
[2020-08-28] MEDS: 0.9% Saline Lock 10 ML Syringe IV (23:51)
[2020-08-28] MEDS: 0.9% Normal Saline 1,000 ML 125 ML IV (23:52)
[2020-08-29] VITALS (15 sets, daily range): BP systolic 106–139; BP diastolic 53–99; PULSE 80–94; RESP 14–22; TEMP 36.7–38.3; O2SAT 94–98
--- NOTE | 2020-08-29 00:18 | PCM.RX.CS ---
Consult Pharmacy has been consulted to manage selected antiobiotic: Vancomycin Type of Consult: New start Prior Doses of Antibiotics Received/Current Regimen: Medications Discontinued Medications Vancomycin HCl 2,000 mg/ (Sodium Chloride) 540 mls @ 250 mls/hr IV X1 ONE Stop: 08/29/20 00:09 Last Admin: 08/29/20 00:02 Dose: 250 mls/hr Documented by: Labs: Sodium 133 mmol/L (136-145) L 08/28/20 19:08 Potassium 4.6 mmol/L (3.5-5.1) 08/28/20 19:08 Chloride 95 mmol/L (98-107) L 08/28/20 19:08 Carbon Dioxide 33.0 mmol/L (21.0-32.0) H 08/28/20 19:08 Anion Gap 5 (5-15) 08/28/20 19:08 BUN 9 mg/dL (7-18) 08/28/20 19:08 Creatinine 0.76 mg/dL (0.55-1.02) 08/28/20 19:08 Est GFR (MDRD) Af Amer 99 mL/min (>60) 08/28/20 19:08 Est GFR (MDRD) Non-Af 82 mL/min (>60) 08/28/20 19:08 BUN/Creatinine Ratio 11.8 RATIO (10-20) 08/28/20 19:08 Glucose 170 mg/dL (74-106) H 08/28/20 19:08 Microbiology: Microbiology 08/28/20 20:45 Interface Orders SARS-CoV-2 Antigen (Rapid) - Final Weight used for dosin kg Estimated Creatinine Clearance: 76 Goal Trough: 15-20 mcg/mL Pharmacy Plan for Drug Dosinmg in ED, 1250mg IV q12h with trough prior to 4th dose per policy. Pharmacy Service will continue to monitor and adjust dosing as required.
[2020-08-29] MEDS: buPROPion (XL) 150 MG TABLET.XL PO ×3 (00:19→21:44)
[2020-08-29] MEDS: Metoprolol Tartrate 25 MG Tablet PO ×3 (00:19→21:44)
[2020-08-29] MEDS: Gabapentin 300 MG Capsule PO ×4 (00:19→21:44)
[2020-08-29 00:31] LABS: Bedside Glucose 136 mg/dL (70-110)
[2020-08-29] MEDS: Acetaminophen 325 MG Tablet 650 MG PO ×2 (01:33→15:39)
[2020-08-29] MEDS: cycloBENZAPRine HCl 10 MG Tablet PO (05:19)
[2020-08-29 05:54] LABS: Absolute Lymphocyte Count 0.91 X10^3/uL (0.83-4.51); Basophil# 0.03 X10^3/uL; Basophil% 0.2 % (0-1); Eosinophil# 0.01 X10^3/uL; Eosinophils% 0.1 % (0-5); Hemoglobin 10.6 g/dL (12.0-15.0); Lymphocyte # 0.91 X10^3/ul (0.83-4.51); Lymphocyte % 6.1 % (19-41); Mean Corp Hgb Conc 29.4 g/dL (32-36); Mean Corpuscular Hgb 25.8 pg (27.0-32.0); Mean Corpuscular Volume 87.6 fL (81-99); Mean Platelet Vol. 8.8 fl (6.2-12.0); Monocyte# 0.96 X10^3/uL; Monocyte% 6.4 % (0-10); NRBC Flagged by Analyzer 0 % (0-5); Neutrophil # 12.99 X10^3/uL (2.7-7.7); Neutrophil % 86.6 % (47-70); Platelet Count 254 K/mm3 (150-450); RBC Distribution Width CV 14.6 % (11.6-14.6); RBC Distribution Width SD 47.2 fl (35.1-43.9); Red Blood Count 4.11 M/mm3 (4.2-5.4)
[2020-08-29 06:25] LABS: Anion Gap 4 (5-15); BUN 12 mg/dL (7-18); BUN/Creat Ratio 15.6 RATIO (10-20); Calcium,Total 8.8 mg/dL (8.5-10.1); Chloride 100 mmol/L (98-107); Creatinine, Serum 0.77 mg/dL (0.55-1.02); EST Glomerular Filtration Rate 81 mL/min (>60); Est Glom Filt Rate - Afr Amer 98 mL/min (>60); Estimated Creatinine Clearance 75.44 ml/min; Glucose 61 mg/dL (74-106); Potassium 3.9 mmol/L (3.5-5.1); Sodium Level 137 mmol/L (136-145)
[2020-08-29 06:36] LABS: Bedside Glucose 60 mg/dL (70-110)
[2020-08-29 07:00] LABS: Bedside Glucose 66 mg/dL (70-110)
[2020-08-29] MEDS: Albuterol 2.5 MG/3 ML VIAL.NEB. INHALATION ×3 (07:07→20:02)
[2020-08-29] MEDS: Budesonide Respules 0.5 MG/2 ML AMPUL.NEB. INHALATION ×2 (07:07→20:02)
[2020-08-29] MEDS: 0.9% Normal Saline 1,000 ML 125 ML IV (07:23)
[2020-08-29 07:24] LABS: Magnesium 2.1 mg/dL (1.6-2.6)
[2020-08-29 08:34] LABS: BNP,B-Type NATRIURETIC PEPTIDE 24.9 pg/mL (0-100)
[2020-08-29] MEDS: Potassium Chloride Oral Tablet 20 MEQ PO ×4 (09:07→17:44)
[2020-08-29] MEDS: Citalopram 40 MG TABLET PO (09:07)
[2020-08-29] MEDS: Furosemide 40 MG Tablet PO (09:07)
[2020-08-29] MEDS: Enoxaparin 40 MG/0.4 ML Syringe SC ×2 (09:07→21:44)
[2020-08-29] MEDS: Glucerna Shake 120 ML LIQUID PO ×2 (09:36→11:16)
--- NOTE | 2020-08-29 10:11 | PN.HOSP_ITS ---
Documented by User: Holly Souza NP, ASSISTED LIVING EXECUTIVE DIRECTOR-C 08/29/20 10:26 Subjective Subjective Patient seen and examined. Fever improved. Reports headache and generally feels unwell. Denies nausea, vomiting, diarrhea. Reports shortness of breath prior to admission however denies significant shortness of breath currently. Denies cough. Has not been vaccinated for Covid. Objective Data Objective Data Vital Signs: Vital Signs Temp Pulse Resp BP Pulse Ox 99.1 F 93 18 139/99 H 94 08/29/20 09:02 08/29/20 09:07 08/29/20 09:02 08/29/20 09:07 08/29/20 09:02 Oxygen Flow Rate (L/min) 4 Oxygen Delivery Method Nasal Cannula Weight: 388 lb 0.217 oz Body Mass Index (BMI) 59.0 Intake & Output: Intake and Output for Last 24 Hours 08/27/20 08/28/20 08/29/20 23:59 23:59 23:59 Intake Total 1100 / 1100 2029.58 / 2029.58 Output Total 800 / 800 Balance 1100 / 1100 1229.58 / 1229.58 Lab / Micro Data Result Diagrams: 08/29/20 05:20 08/29/20 05:20 Labs: Laboratory Results - last 24 hr 08/28/20 19:08: WBC 16.3 H, RBC 4.56, Hgb 11.7 L, Hct 39.3, MCV 86.2, MCH 25.7 L , MCHC 29.8 L, RDW Std Deviation 45.4 H, RDW Coeff of Hemanth 14.5, Plt Count 251, MPV 8.4, Immature Gran % (Auto) 0.700, Neut % (Auto) 87.6 H, Lymph % (Auto) 4.7 L, [place] % (Auto) 6.5, Eos % (Auto) 0.3, Baso % (Auto) 0.2, Absolute Neuts (auto) 14.3 H, Absolute Lymphs (auto) 0.76 L, Nucleated RBC % 0 08/28/20 19:08: Sodium 133 L, Potassium 4.6, Chloride 95 L, Carbon Dioxide 33.0 H, Anion Gap 5, BUN 9, Creatinine 0.76, Estim Creat Clear Calc 76.43, Est GFR (MDRD) Af Amer 99, Est GFR (MDRD) Non-Af 82, BUN/Creatinine Ratio 11.8, Glucose 170 H, Calcium 8.8, Total Bilirubin 0.70, AST 15, ALT 14, Alkaline Phosphatase 138 H, Total Protein 7.8, Albumin 3.0 L, Globulin 4.8 H, Albumin/Globulin Ratio 0.6 L 08/28/20 19:08: Lactic Acid 1.3 08/28/20 19:35: PT 14.6, INR 1.2, APTT 29.7 08/28/20 20:24: Urine Color Yellow, Urine Clarity Clear, Urine pH 7.0, Ur Specific [place] 1.010, Urine Protein 30 H, Urine Glucose (UA) Normal, Urine Ketones 5 H, Urine Occult Blood Negative, Urine Nitrite Negative, Urine Bilirubin 1 H, Urine Urobilinogen 1 H, Ur Leukocyte Esterase 25 H, Urine RBC 0 SEEN, Urine WBC 0-5 SEEN, Ur Squamous Epith Cells 0 SEEN, Urine Bacteria 0 SEEN, Urine Mucus 1+ 08/29/20 00:16: POC Glucose 136 H 08/29/20 05:20: WBC 15.0 H, RBC 4.11 L, Hgb 10.6 L, Hct 36.0 L, MCV 87.6, MCH 25.8 L, MCHC 29.4 L, RDW Std Deviation 47.2 H, RDW Coeff of Hemanth 14.6, Plt Count 254, MPV 8.8, Immature Gran % (Auto) 0.600, Neut % (Auto) 86.6 H, Lymph % (Auto) 6.1 L, [place] % (Auto) 6.4, Eos % (Auto) 0.1, Baso % (Auto) 0.2, Absolute Neuts (auto) 13.0 H, Absolute Lymphs (auto) 0.91, Nucleated RBC % 0 08/29/20 05:20: Sodium 137, Potassium 3.9, Chloride 100, Carbon Dioxide 33.0 H, Anion Gap 4 L, BUN 12, Creatinine 0.77, Estim Creat Clear Calc 75.44, Est GFR (MDRD) Af Amer 98, Est GFR (MDRD) Non-Af 81, BUN/Creatinine Ratio 15.6, Glucose 61 L, Calcium 8.8 08/29/20 05:20: Magnesium 2.1 08/29/20 05:24: B-Natriuretic Peptide 24.9 08/29/20 06:32: POC Glucose 60 L 08/29/20 06:57: POC Glucose 66 L Micro: Microbiology 08/29/20 08:24 Urine, Clean Catch Streptococcus pneumoniae Antigen (M - Final 08/29/20 08:24 Urine, Clean Catch Legionella Antigen - Final 08/28/20 19:09 Blood Culture (Wb) - Anticubital Right Blood Culture - Preliminary 08/28/20 20:45 Interface Orders SARS-CoV-2 Antigen (Rapid) - Final Radiography Diagnostic Testing: Radiology Impression Chest X-Ray 08/28/20 19:50 IMPRESSION: Limited study by the patient''s body habitus. Borderline cardiomegaly with mild pulmonary vascular congestion. No definite airspace disease in the bilateral lungs. No sizable pleural effusion. No pneumothorax. Trachea midline. Multilevel thoracic spondylosis and mild dextroscoliosis. Electronically Signed: Lamonte Styles MD at 20:08 EDT Tel , Service support , Rhythm Strip Rhythm Strip: Sinus Tach Rate: 104 Ectopy: None Physical Exam Const alert, oriented x3 and no apparent distress Orientation / Consciousness: awake, oriented to person, oriented to place and oriented to time HEENT normocephalic and moist oral mucous membranes Eyes PERRL, EOMs intact bilaterally and conjunctivae normal Neck no lymphadenopathy Resp clear to auscultation bilaterally Auscultation: diminished lung sounds Cardio regular rate, regular rhythm and no murmurs Peripheral Pulses: pulses 2+ throughout GI normal to inspection, nondistended, normoactive bowel sounds, non-tender and non-distended GI Narrative: Obese Extremity normal to inspection Skin no rashes or lesions noted Lesions: no lesions Rashes: no rashes Trauma: no lacerations or abrasions Neuro CN's II-XII intact bilaterally, no focal motor deficits, no sensory deficits noted and deep tendon reflexes 2+ bilaterally Psych mental status grossly normal and affect normal Assessment & Plan Assessment/Plan (1) Sepsis: PLAN: 1. Sepsis, fever-unclear source. Possible viral etiology? Chest x-ray unremarkable. Urinalysis unremarkable. Urine and blood cultures pending. On IV vancomycin and IV Zosyn empirically. Rapid Covid negative. Obtain PCR. Fever improving. 2. Chronic combined heart failure- continue home Lasix regimen. Echocardiogram September 2018 demonstrated an EF of 47%, stage II diastolic dysfunction, pulmonary artery systolic pressure 42 mmHg. 3. Type 2 diabetes [id number] with sliding scale insulin. Continue home insulin regimen. 4. COPD with chronic hypoxic respiratory failure-continue supplemental oxygen to maintain O2 at or above 90%. 5. Hypertension-stable, continue metoprolol. 6. Hyperlipidemia- continue statin. 7. Depression/anxiety-on bupropion, citalopram. 8. SOBEIDA-on CPAP. 9. Morbid obesity-BMI 59. Diet and lifestyle modifications. DVT prophylaxis-Lovenox subcu This patient was seen by ERNESTO Stanley under the supervision of Dr. Salas. Documented by User: Dr. Kacie Salas MD 08/29/20 12:29 Objective Data Lab / Micro Data Result Diagrams: 08/29/20 05:20 08/29/20 05:20
[2020-08-29 10:46] LABS: Procalcitonin 0.93 ng/mL (0.00-0.09)
[2020-08-29 11:41] LABS: Bedside Glucose 62 mg/dL (70-110)
[2020-08-29 12:41] LABS: Bedside Glucose 79 mg/dL (70-110)
--- NOTE | 2020-08-29 17:00 | CASEMGMT ---
Addendum entered by Indigo Garcia 08/29/20 18:28: PT/OT maggie pending. Original Note: RN NILESH PEST CONTROLLER ASSISTANT CM to room to meet with patient for initial transition planning/care coordination assessment. RN NILESH introduced self and role at [facility].? Pt voices understanding and consents to assessment at this time.? Pt resting in bed in no distress at this time.? Pt is A/O at this time and answers all questions appropriately.?? Care providers, pharmacy, and demographics verified/updated at this time. PCP: Dr Portillo Specialists: Katherine Mahan--cardiology in [place] Preferred Pharmacy: [facility] Insurance: Khush [facility] Prescription Benefit:? Yes Living Will/HPOA:? States does not have LW or HCPOA .? Interested in more information and would like to talk with CHRISTY to complete paperwork.? Norma HARRISON, made aware. LNOK: , [place]. Living Arrangements: Lives w/her in one-story home w/4 steps to enter. Pt states has been difficulty doing the stairs and it has been difficult taking care of herself. Her has been helping her w/bathing and drsg, and home mgmt tasks. Transportation: . DME: ?States has the following DME:?cane, glucometer, rollator, lift chair, nebulizer. O2 @ 4 L/M continuously through [facility] Pt states would like to get a shower chair, as she has been leaning against the wall when she showers. Pt made aware this is not covered by her insurance and provided w/places that may provide this. She voices appreciation. HHC/SNF: Has been to in [place] and has had HHC in the past, but does not remember name of agency. Pt stats she would like to to go a SNF @ discharge. 1st preference is [place] [facility]. Norma HARRISON, made aware. Pt voices no further concerns/needs at this time.? PLAN: ?SNF [facility]
[2020-08-29] MEDS: Dextrose 50%-Water 25 GM/50 ML DISP.SYRIN IV (17:44)
[2020-08-29 18:01] LABS: Bedside Glucose 134 mg/dL (70-110)
[2020-08-29 18:01] LABS: Bedside Glucose 48 mg/dL (70-110)
[2020-08-29 20:26] LABS: Bedside Glucose 229 mg/dL (70-110)
--- NOTE | 2020-08-29 21:29 | CASEMGMT ---
CHRISTY Note Referral Source: [employer] Director Reason for Referral: Patient is requesting Advanced Directive Information. Patient may need SNF at discharge. CHRISTY met with patient briefly. SW provided her with advanced directives and advised her to review and if she had questions she could speak to director of social services. Patient said that she was previously at [facility] and if she needs SNF she wants to return to [facility]. SW provided her with list of SNF in [facility] for her review. Plan: Advanced Directives provided. [facility] for SNF if needed. Norma CHAUDHARI
[2020-08-29] MEDS: Famotidine 20 MG Tablet PO (21:44)
[2020-08-29] MEDS: Atorvastatin Calcium 20 MG Tablet PO (21:44)
[2020-08-29 22:21] LABS: Bedside Glucose 212 mg/dL (70-110)
--- NOTE | 2020-08-29 23:51 | CPS ---
Patient refused hospital BiPAP machine. BIPAP not setup in room for this reason. Will wear NC O2 overnight. MEAT PUMPER will monitor patient.
[2020-08-30] VITALS (14 sets, daily range): BP systolic 104–128; BP diastolic 43–71; PULSE 65–101; RESP 14–24; TEMP 36.8–37.9; O2SAT 95–98
[2020-08-30 05:50] LABS: Absolute Lymphocyte Count 1.61 X10^3/uL (0.83-4.51); Absolute Neutrophil Count 10.2 X10^3/uL (2.0-7.7); Basophil# 0.02 X10^3/uL; Basophil% 0.2 % (0-1); Eosinophil# 0.06 X10^3/uL; Eosinophils% 0.5 % (0-5); Hematocrit 36.3 % (37-47); Hemoglobin 10.8 g/dL (12.0-15.0); Lymphocyte # 1.61 X10^3/ul (0.83-4.51); Lymphocyte % 12.4 % (19-41); Mean Corp Hgb Conc 29.8 g/dL (32-36); Mean Corpuscular Hgb 25.6 pg (27.0-32.0); Mean Platelet Vol. 8.8 fl (6.2-12.0); Monocyte# 1.01 X10^3/uL; Monocyte% 7.8 % (0-10); NRBC Flagged by Analyzer 0 % (0-5); Neutrophil # 10.16 X10^3/uL (2.7-7.7); Neutrophil % 78.5 % (47-70); Platelet Count 224 K/mm3 (150-450); RBC Distribution Width CV 14.9 % (11.6-14.6); RBC Distribution Width SD 47.4 fl (35.1-43.9); Red Blood Count 4.22 M/mm3 (4.2-5.4); White Blood Count 12.9 K/mm3 (4.4-11.0)
[2020-08-30 06:07] LABS: ALB/GLOB Ratio 0.6 RATIO (0.9-2.4); AST(SGOT) 22 U/L (15-37); Alanine Aminotransfer ALT/SGPT 15 U/L (13-56); Albumin, Serum 2.5 g/dL (3.2-5.0); Alkaline Phosphatase 138 U/L (45-117); Anion Gap 1 (5-15); BUN 11 mg/dL (7-18); BUN/Creat Ratio 17.4 RATIO (10-20); Chloride 97 mmol/L (98-107); Creatinine, Serum 0.63 mg/dL (0.55-1.02); EST Glomerular Filtration Rate 101 mL/min (>60); Est Glom Filt Rate - Afr Amer 122 mL/min (>60); Globulin 4.4 g/dL (2.2-4.2); Glucose 81 mg/dL (74-106); Potassium 3.7 mmol/L (3.5-5.1); Protein, Total 6.9 g/dL (6.4-8.2); Sodium Level 135 mmol/L (136-145)
[2020-08-30] MEDS: Gabapentin 300 MG Capsule PO ×3 (06:32→21:49)
[2020-08-30 06:46] LABS: Bedside Glucose 66 mg/dL (70-110)
[2020-08-30] MEDS: Ondansetron 4 MG/2 ML Vial IV (07:01)
[2020-08-30] MEDS: Budesonide Respules 0.5 MG/2 ML AMPUL.NEB. INHALATION ×2 (07:04→18:58)
[2020-08-30] MEDS: Albuterol 2.5 MG/3 ML VIAL.NEB. INHALATION ×3 (07:04→18:58)
[2020-08-30] MEDS: Aspirin 81 MG TAB.CHEW PO (08:37)
[2020-08-30] MEDS: buPROPion (XL) 150 MG TABLET.XL PO ×2 (08:37→21:49)
[2020-08-30] MEDS: Furosemide 40 MG Tablet PO (08:37)
[2020-08-30] MEDS: Citalopram 40 MG TABLET PO (08:37)
[2020-08-30] MEDS: Metoprolol Tartrate 25 MG Tablet PO ×2 (08:37→21:49)
[2020-08-30] MEDS: Enoxaparin 40 MG/0.4 ML Syringe SC ×2 (08:38→21:48)
--- NOTE | 2020-08-30 09:07 | CT_ITS ---
STUDY: CT CHEST WITHOUT CONTRAST REASON FOR EXAM: Female, 65 years old. Dyspnea, hypoxia RADIATION DOSAGE (If Supplied By Facility): CTDIvol = ( 20.15 ) mGy, DLP = ( 735.08 ) mGycm TECHNIQUE: Transaxial imaging was performed without the administration of intravenous contrast material. Sagittal and coronal 2-D MPR. Individualized dose optimization techniques were used for this CT. COMPARISON: X-ray chest 08/28/2020, 09/27/2018 FINDINGS: Supraclavicular: Multinodular thyroid, enlarged, left greater than right, incompletely characterized. Correlate thyroid function. Routine follow-up thyroid ultrasound may be appropriate. Body wall soft tissues: No acute process. Osseous structures: Slight scoliosis, mild thoracic spondylosis, mild osteopenia, no acute process. Upper abdomen: Cholecystectomy. There is a very mildly nodular contour the liver. There may be mild hepatomegaly. The distalmost liver is off the [id number]. The visible portions of the liver measure up to 17 cm craniocaudal. Borderline splenomegaly, craniocaudal spleen about 13 cm. Correlate any history of cirrhosis. Mediastinum: Normal esophagus. No mediastinal or hilar mass or lymphadenopathy. Lungs: No acute pulmonary process is evident. In the right upper lobe anterior segment axial series 4 image 44, mixed density predominantly solid pulmonary nodule with smooth margins measuring 5.2 mm. Right lower lobe posterior basilar segment pulmonary nodules, solid, measuring 3.4 mm and 4.4 mm. There are no apparent pulmonary nodules on the left. There is no infiltrate, effusion or pneumothorax. Heart: Mild to moderate cardiomegaly, no pericardial effusion, no visible coronary calcifications. There is relative hypoattenuation of the ventricular blood pool compared to myocardium that may be a manifestation of anemia. There is mild ectasia of the left atrium and left ventricle with no apparent enlargement of the right-sided chambers. Aorta: Mild nonaneurysmal ectasia of the ascending aorta and proximal arch up to 3.4 cm. No atherosclerosis. Pulmonary arteries: Ectatic central pulmonary arteries, main pulmonary artery 3.7 cm. IVC, SVC and pulmonary veins: Unremarkable. CT/Chest without Contrast IMPRESSION: 1. No definitive acute cardiopulmonary process is evident. There is no visible coronary atherosclerosis. 2. Ectatic central pulmonary arteries may be a manifestation of pulmonary arterial hypertension. 3. Small right-sided pulmonary nodules, the largest measuring 5.2 mm. Correlate risk factors such as smoking history. Follow-up low-dose CT chest in 12 months is recommended for surveillance purposes. (Fleischner Society Criteria). 4. Mild nodularity of the contour the liver. There is probably mild hepatomegaly and borderline splenomegaly (the distal most portions of each organ fall off the [id number]). Suspicious for cirrhosis with possible portal venous hypertension. 5. Multinodular enlarged thyroid. Electronically Signed: Trino Luu MD at 11:17 EDT Tel , Service support ,
[2020-08-30] MEDS: Acetaminophen 325 MG Tablet 650 MG PO (09:59)
[2020-08-30] MEDS: Ibuprofen 600 MG Tablet PO (11:29)
[2020-08-30 11:47] LABS: Vancomycin, Trough Level 17.9 ug/mL (5.0-15.0)
[2020-08-30 11:55] LABS: Bedside Glucose 165 mg/dL (70-110)
[2020-08-30 11:57] LABS: T4 Free Direct 1.09 ng/dL (0.76-1.46); Thyroid Stim Hormone (TSH) 1.06 uIU/mL (0.358-3.74)
--- NOTE | 2020-08-30 13:05 | PCM.RX.CS ---
Consult Pharmacy has been consulted to manage selected antiobiotic: Vancomycin Type of Consult: Follow-up Labs: Sodium 135 mmol/L (136-145) L 08/30/20 05:21 Potassium 3.7 mmol/L (3.5-5.1) 08/30/20 05:21 Chloride 97 mmol/L (98-107) L 08/30/20 05:21 Carbon Dioxide 37.0 mmol/L (21.0-32.0) H 08/30/20 05:21 Anion Gap 1 (5-15) L 08/30/20 05:21 BUN 11 mg/dL (7-18) 08/30/20 05:21 Creatinine 0.63 mg/dL (0.55-1.02) 08/30/20 05:21 Est GFR (MDRD) Af Amer 122 mL/min (>60) 08/30/20 05:21 Est GFR (MDRD) Non-Af 101 mL/min (>60) 08/30/20 05:21 BUN/Creatinine Ratio 17.4 RATIO (10-20) 08/30/20 05:21 Glucose 81 mg/dL (74-106) 08/30/20 05:21 Vancomycin Trough 17.9 ug/mL (5.0-15.0) H 08/30/20 10:50 Microbiology: Microbiology 08/28/20 19:09 Blood Culture (Wb) - Anticubital Right Blood Culture - Preliminary Streptococcus group C 08/28/20 20:24 Urine Catheter - Catheter Urine Culture - Final Streptococcus agalactiae (B) 08/29/20 10:45 Mucosa - Nasopharyngeal Respiratory Panel (PCR) - Final 08/29/20 08:24 Urine, Clean Catch Streptococcus pneumoniae Antigen (M - Final 08/29/20 08:24 Urine, Clean Catch Legionella Antigen - Final 08/28/20 20:45 Interface Orders SARS-CoV-2 Antigen (Rapid) - Final Goal Trough: 15-20 mcg/mL Pharmacy Plan for Drug Dosing: VANCOMYCIN LEVEL RECEIVED Current Vancomycin Dose: 1250mg IV q12h (00,12) Number of Doses Received: 2000mg IV x1, 1250mg IV x2 Vancomycin Level: 17.9 Hours Since Last Dose: 9 Renal Function: SrCr 0.63 Renal Function Trend: SrCr stable Lab/Micro: Vancomycin Plan/Comments: Vancomycin trough of 17.9 is within the ordered goal trough range of 15-20. Recommend continuing current dose of Vancomycin 1250mg IV q12h. Recheck trough before the 4th dose Pending Level: 09/01/20 at 1130 Pharmacy Service will continue to monitor and adjust dosing as required. Follow-Up Labs: Trough Vancomycin - 09/01/20 at 1130
--- NOTE | 2020-08-30 13:38 | PN.HOSP_ITS ---
Documented by User: Holly Souza NP, WIND FARM ENGINEER-C 08/30/20 13:50 Subjective Subjective Patient seen and examined. Remains short of breath, intermittent fever. Reports irritation under her abdominal skin fold. History of picking behavior. Wounds noted to bilateral hip area and under abdominal folds. Denies other symptoms or complaints. Objective Data Objective Data Vital Signs: Vital Signs Temp Pulse Resp BP Pulse Ox 100.2 F H 101 H 18 104/43 L 96 08/30/20 11:25 08/30/20 08:37 08/30/20 08:33 08/30/20 08:37 08/30/20 08:33 Oxygen Flow Rate (L/min) 4 Oxygen Delivery Method Nasal Cannula Weight: 388 lb 0.217 oz Body Mass Index (BMI) 59.0 Intake & Output: Intake and Output for Last 24 Hours 08/28/20 08/29/20 08/30/20 23:59 23:59 23:59 Intake Total 1100 / 1100 4184.58 / 4184.58 1097.25 / 1097.25 Output Total 4900 / 4900 1850 / 1850 Balance 1100 / 1100 -715.42 / -715.42 -752.75 / -752.75 Lab / Micro Data Result Diagrams: 08/30/20 05:21 08/30/20 05:21 Labs: Laboratory Results - last 24 hr 08/29/20 10:45: COVID-19 (SARAHY) Not Detected 08/29/20 17:30: POC Glucose 48 L 08/29/20 17:53: POC Glucose 134 H 08/29/20 20:20: POC Glucose 229 H 08/29/20 21:42: POC Glucose 212 H 08/30/20 05:21: WBC 12.9 H, RBC 4.22, Hgb 10.8 L, Hct 36.3 L, MCV 86.0, MCH 25.6 L, MCHC 29.8 L, RDW Std Deviation 47.4 H, RDW Coeff of Hemanth 14.9 H, Plt Count 224, MPV 8.8, Immature Gran % (Auto) 0.600, Neut % (Auto) 78.5 H, Lymph % (Auto) 12.4 L, [place] % (Auto) 7.8, Eos % (Auto) 0.5, Baso % (Auto) 0.2, Absolute Neuts (auto) 10.2 H, Absolute Lymphs (auto) 1.61, Nucleated RBC % 0 08/30/20 05:21: Sodium 135 L, Potassium 3.7, Chloride 97 L, Carbon Dioxide 37.0 H, Anion Gap 1 L, BUN 11, Creatinine 0.63, Estim Creat Clear Calc 92.20, Est GFR (MDRD) Af Amer 122, Est GFR (MDRD) Non-Af 101, BUN/Creatinine Ratio 17.4, Glucose 81, Calcium 9.0, Total Bilirubin 0.60, AST 22, ALT 15, Alkaline Phosphatase 138 H, Total Protein 6.9, Albumin 2.5 L, Globulin 4.4 H, Albumin/Globulin Ratio 0.6 L 08/30/20 06:29: POC Glucose 66 L 08/30/20 10:50: Vancomycin Trough 17.9 H 08/30/20 10:50: TSH 1.06, Free T4 1.09 08/30/20 11:17: POC Glucose 165 H Micro: Microbiology 08/28/20 19:09 Blood Culture (Wb) - Anticubital Right Blood Culture - Preliminary Streptococcus group C 08/28/20 20:24 Urine Catheter - Catheter Urine Culture - Final Streptococcus agalactiae (B) 08/29/20 10:45 Mucosa - Nasopharyngeal Respiratory Panel (PCR) - Final 08/29/20 08:24 Urine, Clean Catch Streptococcus pneumoniae Antigen (M - Final 08/29/20 08:24 Urine, Clean Catch Legionella Antigen - Final 08/28/20 20:45 Interface Orders SARS-CoV-2 Antigen (Rapid) - Final Radiography Diagnostic Testing: Radiology Impression Chest CT 08/30/20 09:07 IMPRESSION: 1. No definitive acute cardiopulmonary process is evident. There is no visible coronary atherosclerosis. 2. Ectatic central pulmonary arteries may be a manifestation of pulmonary arterial hypertension. 3. Small right-sided pulmonary nodules, the largest measuring 5.2 mm. Correlate risk factors such as smoking history. Follow-up low-dose CT chest in 12 months is recommended for surveillance purposes. (Fleischner Society Criteria). 4. Mild nodularity of the contour the liver. There is probably mild hepatomegaly and borderline splenomegaly (the distal most portions of each organ fall off the vpfsz-so-ryci). Suspicious for cirrhosis with possible portal venous hypertension. 5. Multinodular enlarged thyroid. Electronically Signed: Trino Luu MD at 11:17 EDT Tel , Service support , Rhythm Strip Rhythm Strip: Sinus Tach Rate: 104 Ectopy: None Physical Exam Const alert, oriented x3 and no apparent distress Orientation / Consciousness: awake, oriented to person, oriented to place and oriented to time HEENT normocephalic and moist oral mucous membranes Eyes PERRL, EOMs intact bilaterally and conjunctivae normal Neck no lymphadenopathy Resp clear to auscultation bilaterally Auscultation: diminished lung sounds Cardio regular rate, regular rhythm and no murmurs Peripheral Pulses: pulses 2+ throughout GI normal to inspection, nondistended, normoactive bowel sounds, non-tender and non-distended Extremity normal to inspection Skin no rashes or lesions noted Skin Narrative: Bilateral hip scabbed wounds with surrounding erythema, abdominal fold excoriation with scabbing related to picking behavior. Lesions: no lesions Rashes: no rashes Trauma: no lacerations or abrasions Neuro CN's II-XII intact bilaterally, no focal motor deficits, no sensory deficits noted and deep tendon reflexes 2+ bilaterally Psych mental status grossly normal and affect normal Assessment & Plan Assessment/Plan (1) Sepsis: PLAN: 1. Sepsis, fever-suspect secondary to left hip cellulitis. Chest x-ray unremarkable. Urinalysis unremarkable. Blood culture growing strep 1 out of 2 cultures, repeat cultures pending. Urine culture growing strep agalactiae, low colony count. on IV vancomycin and IV Zosyn empirically. Rapid Covid and PCR negative. CT of chest without infiltrate. Obtain wound RN consult. If skin area develops drainage, will culture. 2. Chronic combined heart failure- continue home Lasix regimen. Echocardiogram September 2018 demonstrated an EF of 47%, stage II diastolic dysfunction, pulmonary artery systolic pressure 42 mmHg. 3. Type 2 diabetes medqpqie-Wjwl-Plxgw with sliding scale insulin. Continue home insulin regimen. 4. COPD with chronic hypoxic respiratory failure-continue supplemental oxygen to maintain O2 at or above 90%. 5. Hypertension-stable, continue metoprolol. 6. Hyperlipidemia- continue statin. 7. Depression/anxiety-on bupropion, citalopram. 8. SOBEIDA-on CPAP. 9. Morbid obesity-BMI 59. Diet and lifestyle modifications. DVT prophylaxis-Lovenox subcu This patient was seen by ERNESTO Stanley under the supervision of Dr. Salas. Documented by User: Dr. Kacie Salas MD 08/30/20 14:07 Objective Data Lab / Micro Data Result Diagrams: 08/30/20 05:21 08/30/20 05:21
[2020-08-30] MEDS: Insulin Lispro 100 UNIT/ML INSULN.PEN SC ×2 (16:17→21:46)
[2020-08-30 16:21] LABS: Bedside Glucose 220 mg/dL (70-110)
[2020-08-30] MEDS: Famotidine 20 MG Tablet PO (21:49)
[2020-08-30] MEDS: Atorvastatin Calcium 20 MG Tablet PO (21:49)
[2020-08-30 22:00] LABS: Bedside Glucose 251 mg/dL (70-110)
[2020-08-31] VITALS (14 sets, daily range): BP systolic 103–134; BP diastolic 30–92; PULSE 80–98; RESP 16–18; TEMP 36.6–36.8; O2SAT 94–100
[2020-08-31] MEDS: Acetaminophen 325 MG Tablet 650 MG PO (00:01)
[2020-08-31] MEDS: Gabapentin 300 MG Capsule PO ×3 (06:37→20:58)
[2020-08-31 06:43] LABS: Absolute Lymphocyte Count 1.45 X10^3/uL (0.83-4.51); Absolute Neutrophil Count 6.8 X10^3/uL (2.0-7.7); Basophil# 0.02 X10^3/uL; Basophil% 0.2 % (0-1); Eosinophil# 0.25 X10^3/uL; Eosinophils% 2.6 % (0-5); Hematocrit 34.9 % (37-47); Hemoglobin 10.2 g/dL (12.0-15.0); Lymphocyte # 1.45 X10^3/ul (0.83-4.51); Lymphocyte % 15.3 % (19-41); Mean Corp Hgb Conc 29.2 g/dL (32-36); Mean Corpuscular Hgb 25.8 pg (27.0-32.0); Mean Corpuscular Volume 88.4 fL (81-99); Monocyte% 9.5 % (0-10); NRBC Flagged by Analyzer 0 % (0-5); Neutrophil # 6.82 X10^3/uL (2.7-7.7); Neutrophil % 71.8 % (47-70); Platelet Count 208 K/mm3 (150-450); RBC Distribution Width CV 14.9 % (11.6-14.6); Red Blood Count 3.95 M/mm3 (4.2-5.4); White Blood Count 9.5 K/mm3 (4.4-11.0)
[2020-08-31 06:46] LABS: Bedside Glucose 158 mg/dL (70-110)
[2020-08-31] MEDS: Albuterol 2.5 MG/3 ML VIAL.NEB. INHALATION ×3 (06:46→19:02)
[2020-08-31] MEDS: Budesonide Respules 0.5 MG/2 ML AMPUL.NEB. INHALATION ×2 (06:46→19:02)
[2020-08-31 07:13] LABS: ALB/GLOB Ratio 0.5 RATIO (0.9-2.4); AST(SGOT) 16 U/L (15-37); Alanine Aminotransfer ALT/SGPT 13 U/L (13-56); Albumin, Serum 2.2 g/dL (3.2-5.0); Alkaline Phosphatase 147 U/L (45-117); Anion Gap 3 (5-15); BUN 12 mg/dL (7-18); BUN/Creat Ratio 17.8 RATIO (10-20); Calcium,Total 9.1 mg/dL (8.5-10.1); Chloride 99 mmol/L (98-107); Creatinine, Serum 0.68 mg/dL (0.55-1.02); EST Glomerular Filtration Rate 93 mL/min (>60); Est Glom Filt Rate - Afr Amer 113 mL/min (>60); Estimated Creatinine Clearance 85.42 ml/min; Globulin 4.6 g/dL (2.2-4.2); Glucose 176 mg/dL (74-106); Potassium 3.9 mmol/L (3.5-5.1); Protein, Total 6.8 g/dL (6.4-8.2); Sodium Level 137 mmol/L (136-145)
[2020-08-31] MEDS: Furosemide 40 MG Tablet PO (08:15)
[2020-08-31] MEDS: Enoxaparin 40 MG/0.4 ML Syringe SC ×2 (08:15→20:58)
[2020-08-31] MEDS: Citalopram 40 MG TABLET PO (08:15)
[2020-08-31] MEDS: Aspirin 81 MG TAB.CHEW PO (08:16)
[2020-08-31] MEDS: Potassium Chloride Oral Tablet 20 MEQ PO ×2 (08:16→16:20)
[2020-08-31] MEDS: buPROPion (XL) 150 MG TABLET.XL PO ×2 (08:16→20:57)
[2020-08-31] MEDS: Metoprolol Tartrate 25 MG Tablet PO ×2 (08:16→20:57)
--- NOTE | 2020-08-31 09:02 | CASEMGMT ---
SW spoke w/pt, confirmed she would like referral sent to [facility]. SW called [facility], spoke w/Nena, they do have beds and can take bariatric pts. Once SW aware of antibiotics needed will update [facility], referral faxed. MATTI Heaton
--- NOTE | 2020-08-31 10:19 | PN.HOSP_ITS ---
Documented by User: Holly Souza NP, HEALTH SAFETY COORDINATOR-C 08/31/20 10:25 Subjective Subjective Patient seen and examined. Complains of upper back pain related to laying in bed. Fever improved. Denies other symptoms or complaints. Objective Data Objective Data Vital Signs: Vital Signs Temp Pulse Resp BP Pulse Ox 97.8 F 94 18 132/64 H 100 08/31/20 08:58 08/31/20 08:58 08/31/20 08:58 08/31/20 08:58 08/31/20 08:58 Oxygen Flow Rate (L/min) 4 Oxygen Delivery Method Nasal Cannula Weight: 388 lb 0.217 oz Body Mass Index (BMI) 59.0 Intake & Output: Intake and Output for Last 24 Hours 08/29/20 08/30/20 08/31/20 23:59 23:59 23:59 Intake Total 4184.58 / 4184.58 2130.00 / 2130.00 615 / 615 Output Total 4900 / 4900 4500 / 4500 250 / 250 Balance -715.42 / -715.42 -2370.00 / -2370.00 365 / 365 Lab / Micro Data Result Diagrams: 08/31/20 05:45 08/31/20 05:45 Labs: Laboratory Results - last 24 hr 08/30/20 10:50: Vancomycin Trough 17.9 H 08/30/20 10:50: TSH 1.06, Free T4 1.09 08/30/20 11:17: POC Glucose 165 H 08/30/20 16:13: POC Glucose 220 H 08/30/20 21:44: POC Glucose 251 H 08/31/20 05:45: WBC 9.5, RBC 3.95 L, Hgb 10.2 L, Hct 34.9 L, MCV 88.4, MCH 25.8 L, MCHC 29.2 L, RDW Std Deviation 48.0 H, RDW Coeff of Hemanth 14.9 H, Plt Count 208 , MPV 9.0, Immature Gran % (Auto) 0.600, Neut % (Auto) 71.8 H, Lymph % (Auto) 15.3 L, [place] % (Auto) 9.5, Eos % (Auto) 2.6, Baso % (Auto) 0.2, Absolute Neuts (auto) 6.8, Absolute Lymphs (auto) 1.45, Nucleated RBC % 0 08/31/20 05:45: Sodium 137, Potassium 3.9, Chloride 99, Carbon Dioxide 35.0 H, A nion Gap 3 L, BUN 12, Creatinine 0.68, Estim Creat Clear Calc 85.42, Est GFR (MDRD) Af Amer 113, Est GFR (MDRD) Non-Af 93, BUN/Creatinine Ratio 17.8, Glucose 176 H, Calcium 9.1, Total Bilirubin 0.50, AST 16, ALT 13, Alkaline Phosphatase 147 H, Total Protein 6.8, Albumin 2.2 L, Globulin 4.6 H, Albumin/Globulin Ratio 0.5 L 08/31/20 06:36: POC Glucose 158 H Micro: Microbiology 08/28/20 19:08 Blood Culture (Wb) - Anticubital Left Blood Culture - Preliminary No growth in 48 hours. 08/28/20 19:09 Blood Culture (Wb) - Anticubital Right Blood Culture - Preliminary Streptococcus group C 08/28/20 20:24 Urine Catheter - Catheter Urine Culture - Final Streptococcus agalactiae (B) 08/29/20 10:45 Mucosa - Nasopharyngeal Respiratory Panel (PCR) - Final 08/29/20 08:24 Urine, Clean Catch Streptococcus pneumoniae Antigen (M - Final 08/29/20 08:24 Urine, Clean Catch Legionella Antigen - Final 08/28/20 20:45 Interface Orders SARS-CoV-2 Antigen (Rapid) - Final Radiography Diagnostic Testing: Radiology Impression Chest CT 08/30/20 09:07 IMPRESSION: 1. No definitive acute cardiopulmonary process is evident. There is no visible coronary atherosclerosis. 2. Ectatic central pulmonary arteries may be a manifestation of pulmonary arterial hypertension. 3. Small right-sided pulmonary nodules, the largest measuring 5.2 mm. Correlate risk factors such as smoking history. Follow-up low-dose CT chest in 12 months is recommended for surveillance purposes. (Fleischner Society Criteria). 4. Mild nodularity of the contour the liver. There is probably mild hepatomegaly and borderline splenomegaly (the distal most portions of each organ fall off the adakk-lg-qasw). Suspicious for cirrhosis with possible portal venous hypertension. 5. Multinodular enlarged thyroid. Electronically Signed: Trino Luu MD at 11:17 EDT Tel , Service support , Rhythm Strip Rhythm Strip: Sinus Tach Rate: 104 Ectopy: None Physical Exam Const alert, oriented x3 and no apparent distress Orientation / Consciousness: awake, oriented to person, oriented to place and oriented to time HEENT normocephalic and moist oral mucous membranes Eyes PERRL, EOMs intact bilaterally and conjunctivae normal Neck no lymphadenopathy Resp clear to auscultation bilaterally Auscultation: diminished lung sounds Cardio regular rate, regular rhythm and no murmurs Peripheral Pulses: pulses 2+ throughout GI normal to inspection, nondistended, normoactive bowel sounds, non-tender and non-distended Extremity normal to inspection Skin no rashes or lesions noted Skin Narrative: Left hip wound with surrounding cellulitis. Lesions: no lesions Rashes: no rashes Trauma: no lacerations or abrasions Neuro CN's II-XII intact bilaterally, no focal motor deficits, no sensory deficits noted and deep tendon reflexes 2+ bilaterally Psych mental status grossly normal and affect normal Assessment & Plan Assessment/Plan (1) Sepsis: PLAN: 1. Sepsis, fever-suspect secondary to left hip cellulitis. Chest x-ray unremarkable. Urinalysis unremarkable. Blood culture growing strep group C 1 out of 2 cultures, repeat cultures pending. Urine culture growing strep agalactiae, low colony count. on IV vancomycin and IV Zosyn empirically. Rapid Covid and PCR negative. CT of chest without infiltrate. Obtain wound RN consult. If skin area develops drainage, will culture. ID consulted. Plan for SNF when medically stable. 2. Chronic combined heart failure- continue home Lasix regimen. Echocardiogram September 2018 demonstrated an EF of 47%, stage II diastolic dysfunction, pulmonary artery systolic pressure 42 mmHg. 3. Type 2 diabetes spawwlnr-Mngy-Uhhpd with sliding scale insulin. Continue home insulin regimen. 4. COPD with chronic hypoxic respiratory failure-continue supplemental oxygen to maintain O2 at or above 90%. 5. Hypertension-stable, continue metoprolol. 6. Hyperlipidemia- continue statin. 7. Depression/anxiety-on bupropion, citalopram. 8. SOBEIDA-on CPAP. 9. Morbid obesity-BMI 59. Diet and lifestyle modifications. DVT prophylaxis-Lovenox subcu This patient was seen by ERNESTO Stanley under the supervision of Dr. Martinez. Documented by User: Dr. Jefferson Martinez MD 08/31/20 14:36 Objective Data Lab / Micro Data Result Diagrams: 08/31/20 05:45 08/31/20 05:45 Charges/Coding Addendum Addendum: Dr. Martinez: I personally reviewed the chart and examined the patient, and agree with the above findings. 64-year-old female presented from home with fever from an unclear source. Urine was unremarkable, and her blood culture appears to just have a contaminant. She has been treated with vancomycin and Zosyn and her whi te count has improved from 15 to 9.5, obviously something is being treated. Urine culture from 08/28/20 shows 1000-10,000 CFU of group B strep, blood cultures from 08/28/2020 also show group C strep and 1 out of 4 blood culture bottles, repeat blood cultures have been negative. We will continue to monitor and continue with her antibiotics. Visit Charges Inpatient E&M: 74435 Subs Hosp L2
[2020-08-31] MEDS: Insulin Lispro 100 UNIT/ML INSULN.PEN SC ×3 (11:37→20:59)
[2020-08-31 11:46] LABS: Bedside Glucose 199 mg/dL (70-110)
--- NOTE | 2020-08-31 12:00 | CASEMGMT ---
Palliative screening tool completed for [facility]. Patient meets criteria for palliative consult. Hospitalist REAL ESTATE LEASING AGENT updated and order received for consult. ANGEL CM faxed consult to palliative care.
--- NOTE | 2020-08-31 13:20 | PCM.CONS.GEN ---
Assessment & Plan Assessment/Plan (1) Sepsis: PLAN: Unclear source. UA was relatively normal. Single Bcx with strep. Ucx with a different strep. Wound care to see for L hip wound, will order wound cx. Will stop vanc. Cont zosyn. Will follow. Thank you. Encouraged her to get covid vaccine. (2) Type 2 diabetes mellitus: (3) Cystitis: HPI Consult Data Date of Consult: 08/31/20 HPI Narrative HPI Narrative: JANNETTE MENDOZA, is a 65 F who presented 08/29 with 3-4 days of dysuria, not feeling well, chills, lower back pain. Has not gotten covid vaccine. No diarrhea. Came to ED, started on vanc/zosyn. Feeling only a little better, still dysuria. Full ROS performed and neg except as noted above. [facility] Medical History Anxiety Asthma Atrial fibrillation Depression Diabetes Hearing loss, right Hypertension Migraines On home oxygen therapy Pancreatitis Home Medications albuterol sulfate 2.5 mg INHALATION Q6H PRN PRN 09/27/18 [History Last Taken Unknown] bupropion HCl [Wellbutrin XL] 150 mg PO BID 09/27/18 [History Last Taken 09/27/18 16:00] citalopram 40 mg PO DAILY 09/27/18 [History Last Taken 09/27/18 10:00] cyclobenzaprine 10 mg PO TID PRN 09/27/18 [History Last Taken 09/27/18 16:00] gabapentin 300 mg PO TID 09/27/18 [History Last Taken 09/27/18 16:00] insulin glargine U-300 conc 20 unit SQ QHS 09/27/18 [History Last Taken 09/26/18] ranitidine HCl 150 mg PO QHS 09/27/18 [History Last Taken 09/26/18] simvastatin 40 mg PO QHS 09/27/18 [History Last Taken 09/26/18 16:00] acetaminophen 650 mg PO Q6H PRN PRN tab 10/05/18 [Rx Last Taken Unknown] budesonide-formoterol 2 puff INHALATION BID #1 inhaler 10/05/18 [Rx Last Taken Unknown] furosemide 40 mg PO DAILY #1 tab 10/05/18 [Rx Last Taken Unknown] metoprolol tartrate 25 mg PO BID tab 10/05/18 [Rx Last Taken Unknown] potassium chloride 20 meq PO BIDCM tab 10/05/18 [Rx Last Taken Unknown] pioglitazone [Actos] 30 mg PO DAILY@0800 08/28/20 [History Last Taken Unknown] Allergy/AdvReac Type Severity Reaction Status Date / Time fexofenadine [From Astrid] AdvReac Itching Verified 05/02/19 11:54 glyburide AdvReac Itching Verified 05/02/19 11:54 hydrocodone [From Vicodin] AdvReac Itching Verified 05/02/19 11:54 hydromorphone [From Dilaudid] AdvReac Itching Verified 05/02/19 11:54 meperidine [From Demerol] AdvReac Hives Verified 05/02/19 11:54 metformin AdvReac Itching Verified 05/02/19 11:54 oxycodone [From Percocet] AdvReac Itching Verified 05/02/19 11:54 Social History Smoking Status: Former smoker Physical Exam Const alert, oriented x3 and no apparent distress General Appearance: cooperative HEENT normocephalic and head/scalp atraumatic Eyes PERRL and EOMs intact bilaterally Neck supple and No nodes Resp normal air movement and clear to auscultation bilaterally Cardio regular rate and regular rhythm GI normal to inspection, nondistended, normoactive bowel sounds Extremity General Extremity: edema Skin Skin Narrative: No new rash Neuro CN's II-XII intact bilaterally Lab / Micro Data Result Diagrams: 08/31/20 05:45 08/31/20 05:45 Labs: Laboratory Results - last 24 hr 08/30/20 16:13: POC Glucose 220 H 08/30/20 21:44: POC Glucose 251 H 08/31/20 05:45: WBC 9.5, RBC 3.95 L, Hgb 10.2 L, Hct 34.9 L, MCV 88.4, MCH 25.8 L, MCHC 29.2 L, RDW Std Deviation 48.0 H, RDW Coeff of Hemanth 14.9 H, Plt Count 208, MPV 9.0, Immature Gran % (Auto) 0.600, Neut % (Auto) 71.8 H, Lymph % (Auto) 15.3 L, [place] % (Auto) 9.5, Eos % (Auto) 2.6, Baso % (Auto) 0.2, Absolute Neuts (auto) 6.8, Absolute Lymphs (auto) 1.45, Nucleated RBC % 0 08/31/20 05:45: Sodium 137, Potassium 3.9, Chloride 99, Carbon Dioxide 35.0 H, Anion Gap 3 L, BUN 12, Creatinine 0.68, Estim Creat Clear Calc 85.42, Est GFR (MDRD) Af Amer 113, Est GFR (MDRD) Non-Af 93, BUN/Creatinine Ratio 17.8, Glucose 176 H, Calcium 9.1, Total Bilirubin 0.50, AST 16, ALT 13, Alkaline Phosphatase 147 H, Total Protein 6.8, Albumin 2.2 L, Globulin 4.6 H, Albumin/Globulin Ratio 0.5 L 08/31/20 06:36: POC Glucose 158 H 08/31/20 11:36: POC Glucose 199 H Micro: Microbiology 08/28/20 19:08 Blood Culture (Wb) - Anticubital Left Blood Culture - Preliminary No growth in 48 hours. 08/28/20 19:09 Blood Culture (Wb) - Anticubital Right Blood Culture - Preliminary Streptococcus group C Rhythm Strip Rhythm Strip: Sinus Tach Rate: 104 Ectopy: None
--- NOTE | 2020-08-31 13:54 | NURSING ---
wound photo: left hip
--- NOTE | 2020-08-31 14:10 | CASEMGMT ---
SW spoke w/Nena in admissions at [facility]. They will most likely be able to take pt, depending on antibiotics. Once the antibiotics are finalized, SW will let [facility] know, and they will be able to initiate the precert. CHRISTY will continue to follow. MATTI Heaton
--- NOTE | 2020-08-31 14:57 | CHAPLAIN ---
Type of Pastoral Visit _x__ Initial Visit ___ Follow-up Visit ___ On-call Visit ___ General Patient Visit ___ Spiritual Assessment ___ Family Conference ___ Bereavement ___ Rapid Response ___ Code Blue ___ Other (describe below) Pastoral Care Referral From _x__ Patient ___ Family ___ Nurse ___ Physician ___ General I Farmworker ___ Machined Parts Metal Sprayer ___ Other (describe below) Sacrament/Intervention _x__ Active listening ___ Anointing ___ Confucianist ___ Bereavement ___ Communion ___ Flory exploration ___ ___ Life review _x__ Prayer ___ Reconciliation ___ Sacrament of Sick _x__ Supportive presence ___ Wedding ___ Other (describe below) Pastoral Comments
[2020-08-31] MEDS: Ibuprofen 600 MG Tablet PO (15:07)
[2020-08-31] MEDS: 0.9% Saline Lock 10 ML Syringe IV (16:19)
[2020-08-31 16:31] LABS: Bedside Glucose 221 mg/dL (70-110)
[2020-08-31] MEDS: Atorvastatin Calcium 20 MG Tablet PO (20:57)
[2020-08-31] MEDS: Famotidine 20 MG Tablet PO (20:58)
[2020-08-31 21:50] LABS: Bedside Glucose 205 mg/dL (70-110)
[2020-09-01] VITALS (15 sets, daily range): BP systolic 114–165; BP diastolic 48–85; PULSE 91–112; RESP 16–20; TEMP 36.4–37; O2SAT 94–99
[2020-09-01] MEDS: Ibuprofen 600 MG Tablet PO ×2 (04:10→14:34)
[2020-09-01] MEDS: Gabapentin 300 MG Capsule PO ×3 (05:07→22:16)
[2020-09-01] MEDS: Insulin Lispro 100 UNIT/ML INSULN.PEN SC ×4 (06:36→22:17)
[2020-09-01 06:40] LABS: Bedside Glucose 183 mg/dL (70-110)
[2020-09-01] MEDS: Albuterol 2.5 MG/3 ML VIAL.NEB. INHALATION ×3 (07:31→18:54)
[2020-09-01] MEDS: Furosemide 40 MG Tablet PO (08:46)
[2020-09-01] MEDS: buPROPion (XL) 150 MG TABLET.XL PO ×2 (08:46→22:16)
[2020-09-01] MEDS: Metoprolol Tartrate 25 MG Tablet PO ×2 (08:46→22:16)
[2020-09-01] MEDS: Aspirin 81 MG TAB.CHEW PO (08:46)
[2020-09-01] MEDS: Citalopram 40 MG TABLET PO (08:46)
[2020-09-01] MEDS: Enoxaparin 40 MG/0.4 ML Syringe SC ×2 (08:46→22:17)
[2020-09-01] MEDS: Potassium Chloride Oral Tablet 20 MEQ PO ×2 (08:46→16:28)
--- NOTE | 2020-09-01 09:59 | PN.ID_ITS ---
Physical Exam Narrative Feeling better, no fever, still some dysuria Const alert and no apparent distress General Appearance: cooperative Resp normal air movement and clear to auscultation bilaterally Cardio regular rate and regular rhythm Skin Skin Narrative: L hip redness, dried shallow ulcer ID ID: Route of nutrition/ use of supplements: [] Nutritional Intake: [] IV Site: [] Carmen Catheter: [] Assessment & Plan Assessment/Plan (1) Sepsis: PLAN: Unclear source. UA was relatively normal but persistent dysuria. S donell Bcx with strep. Ucx with a different strep. L hip cellulitis receding slowly. Will narrow abx to cefazolin. Will follow. Have encouraged her to get covid vaccine. (2) Type 2 diabetes mellitus: (3) Cystitis:
--- NOTE | 2020-09-01 10:49 | CASEMGMT ---
CHRISTY spoke with Infectious Disease and patient will be discharged on pill antibiotics. He was not sure which one, but it shouldn't be anything out of the ordinary. CHRISTY called Nena at [facility] and let her know the above. Per physician she will likely be ready tomorrow. CHRISTY asked Nena to please start the pre-cert. Plan: d/c to [facility] under skilled level of care pending pre-cert. Sharon BROWN
--- NOTE | 2020-09-01 11:09 | CASEMGMT ---
Updates requested by [facility], faxed updates. MATTI Heaton
[2020-09-01 11:16] LABS: Bedside Glucose 286 mg/dL (70-110)
--- NOTE | 2020-09-01 11:56 | PN.HOSP_ITS ---
Documented by User: Holly Souza NP, TOOL CHECKER-C 09/01/20 12:00 Subjective Subjective Patient seen and examined. Denies fever, chills. Denies new symptoms or complaints. Awaiting repeat blood cultures and SNF approval. Objective Data Objective Data Vital Signs: Vital Signs Temp Pulse Resp BP Pulse Ox 97.7 F L 112 H 18 165/81 H 98 09/01/20 08:45 09/01/20 08:46 09/01/20 08:45 09/01/20 08:46 09/01/20 08:45 Oxygen Flow Rate (L/min) 4 Oxygen Delivery Method Nasal Cannula Weight: 388 lb 0.217 oz Body Mass Index (BMI) 59.0 Intake & Output: Intake and Output for Last 24 Hours 08/30/20 08/31/20 09/01/20 23:59 23:59 23:59 Intake Total 2130.00 / 2130.00 1620.00 / 1620.00 220 / 220 Output Total 4500 / 4500 2200 / 2200 600 / 600 Balance -2370.00 / -2370.00 -580.00 / -580.00 -380 / -380 Lab / Micro Data Result Diagrams: 08/31/20 05:45 08/31/20 05:45 Labs: Laboratory Results - last 24 hr 08/31/20 16:17: POC Glucose 221 H 08/31/20 20:55: POC Glucose 205 H 09/01/20 06:35: POC Glucose 183 H 09/01/20 11:08: POC Glucose 286 H Micro: Microbiology 08/28/20 19:08 Blood Culture (Wb) - Anticubital Left Blood Culture - Preliminary No growth in 48 hours. 08/28/20 19:09 Blood Culture (Wb) - Anticubital Right Blood Culture - Preliminary Streptococcus group C 08/28/20 20:24 Urine Catheter - Catheter Urine Culture - Final Streptococcus agalactiae (B) 08/29/20 10:45 Mucosa - Nasopharyngeal Respiratory Panel (PCR) - Final 08/29/20 08:24 Urine, Clean Catch Streptococcus pneumoniae Antigen (M - Final 08/29/20 08:24 Urine, Clean Catch Legionella Antigen - Final 08/28/20 20:45 Interface Orders SARS-CoV-2 Antigen (Rapid) - Final Rhythm Strip Rhythm Strip: Sinus Tach Rate: 104 Ectopy: None Physical Exam Const alert, oriented x3 and no apparent distress Orientation / Consciousness: awake, oriented to person, oriented to place and oriented to time HEENT normocephalic and moist oral mucous membranes Eyes PERRL, EOMs intact bilaterally and conjunctivae normal Neck no lymphadenopathy Resp clear to auscultation bilaterally Auscultation: diminished lung sounds Cardio regular rate, regular rhythm and no murmurs Peripheral Pulses: pulses 2+ throughout GI normal to inspection, nondistended, normoactive bowel sounds, non-tender and non-distended Extremity normal to inspection Skin no rashes or lesions noted Skin Narrative: Left hip wound, no drainage noted with surrounding cellulitis. Chronic skin changes bilateral lower extremities. Lesions: no lesions Rashes: no rashes Trauma: no lacerations or abrasions Neuro CN's II-XII intact bilaterally, no focal motor deficits, no sensory deficits noted and deep tendon reflexes 2+ bilaterally Psych mental status grossly normal and affect normal Assessment & Plan Assessment/Plan (1) Fever: (2) SIRS (systemic inflammatory response syndrome): PLAN: 1. Sepsis, fever-suspect secondary to left hip cellulitis. Chest x-ray unremarkable. Urinalysis unremarkable. Blood culture growing strep group C 1 out of 2 cultures, repeat cultures pending. Urine culture growing strep agalactiae, low colony count. Transitioned to IV cefazolin. Rapid Covid and PCR negative. CT of chest without infiltrate. Wound RN consult. If skin area develops drainage, will culture. ID consulted. Plan for SNF when medically stable. 2. Chronic combined heart failure- continue home Lasix regimen. Echocardiogram September 2018 demonstrated an EF of 47%, stage II diastolic dysfunction, pulmonary artery systolic pressure 42 mmHg. 3. Type 2 diabetes [id number] with sliding scale insulin. Continue home insulin regimen. 4. COPD with chronic hypoxic respiratory failure-continue supplemental oxygen to maintain O2 at or above 90%. 5. Hypertension-stable, continue metoprolol. 6. Hyperlipidemia- continue statin. 7. Depression/anxiety-on bupropion, citalopram. 8. SOBEIDA-on CPAP. 9. Morbid obesity-BMI 59. Diet and lifestyle modifications. DVT prophylaxis-Lovenox subcu Discharge plan: Likely discharge to SNF 09/02/2020 pending repeat blood cultures and SNF approval. This patient was seen by Holly Harley, TOOL CHECKER-C under the supervision of Dr. Martinez. Documented by User: Dr. Jefferson Martinez MD 09/01/20 17:04 Objective Data Lab / Micro Data Result Diagrams: 08/31/20 05:45 08/31/20 05:45 Charges/Coding Addendum Addendum: Dr. Martinez: I personally reviewed the chart and examined the patient, and agree with the above findings. 64-year-old female presented from home with fever from an unclear source. Urine was unremarkable, and her blood culture appears to just have a contaminant. She has been treated with vancomycin and Zosyn and her white count has improved from 15 to 9.5, obviously something is being treated. Urine culture from 08/28/20 shows 1000-10,000 CFU of group B strep, blood cult ures from 08/28/2020 also show group C strep and 1 out of 4 blood culture bottles, repeat blood cultures have been negative. We will continue to monitor and continue with her antibiotics. 09/01/2020: Feels much better today, she does have more significant redness on her left hip but this is likely the source of her fevers with cellulitis. No good culture obtainable we will continue with empiric antibiotics and obtain pre-CERT for transfer back to the group home to continue oral antibiotics on discharge, antibiotics were transitioned to Ancef from Zosyn. Visit Charges Inpatient E&M: 82476 Subs Hosp L2
[2020-09-01] MEDS: Cefazolin 2 GM in 0.9% Normal Saline 100 ML IV ×2 (13:27→22:19)
[2020-09-01] MEDS: cycloBENZAPRine HCl 10 MG Tablet PO ×2 (14:34→22:15)
--- NOTE | 2020-09-01 15:51 | PCM.CONS.P ---
Assessment & Plan Assessment/Plan (1) Weakness: (2) Shortness of breath: (3) Sepsis: (4) Chronic respiratory failure with hypoxia: (5) Morbid obesity: (6) Acute on chronic diastolic (congestive) heart failure: (7) Type 2 diabetes mellitus: QUALIFIERS: Diabetes mellitus terminal operations manager insulin use: with terminal operations manager use (8) COPD exacerbation: (9) SIRS (systemic inflammatory response syndrome): PLAN: 65-year-old female with general weakness, fever, found to have positive blood cultures. Seen today for palliative care consultation secondary to chronic hypoxemic respiratory failure and COPD. She does not have a current director of home care hospice. 1. Weakness: Multifactorial, she is morbidly obese. Going to half-way facility for rehab, with plans to return home with her spouse. 2. Shortness of breath: Again, multifactorial. Unclear etiology of her chronic respiratory failure, says she has been on oxygen for about 5 years. She denies having COPD but does have asthma, wheezes at home quite often. Recommend she reestablish with pulmonology and will likely need repeat pulmonary function tests as well as PSG. No recommendations for additional medication at this time. We can follow her closely at half-way and then when she goes home. 3. COPD/T2DM/chronic diastolic CHF/morbid obesity: Complicates overall care, management, recovery, and prognosis. She is interested in hearing further about services. She would benefit from supportive care, goals would be improvement of symptoms, avoidance of hospitalization if at all possible, and routine follow-up in collaboration with her other providers. Thank you for the opportunity to participate in this patient's care, please do not hesitate to contact [facility] with any further questions or concerns. Palliative direct line is [phone]. We will follow up after discharge and will discuss palliative services further at that time. Greater than 50% of F2F visit dedicated to education and counseling of palliative care services, medications, comorbid conditions and potential assistance with management, and plan of care moving forward. Start time: 1551 End time: 162 HPI Consult Data Date of Consult: 09/01/20 HPI Narrative HPI Narrative: JANNETTE MENDOZA, is a 65 F, PMH as below, who presents to [facility] 08/28/2020 with complaints of general malaise, dysuria and fever for 2 days. She was found to have an elevated white count and dehydration, admitted to the hospital for further evaluation and management. Chest x-ray showed limited study secondary to body habitus, she had borderline cardiomegaly with mild pulmonary vascular congestion, no pleural effusion. Multilevel thoracic spondylosis and mild dextroscoliosis. CT the chest showed no definitive acute cardiopulmonary process. Ectatic central pulmonary arteries may be a manifestation of pulmonary arterial hypertension, there was small right-sided pulmonary nodules, the largest measuring 5.2 mm, follow-up low-dose CT was recommended in 12 months for surveillance purposes. Also had mild nodularity of the contour of the liver, mild hepatomegaly and borderline splenomegaly. Suspicious for cirrhosis with possible portal venous hypertension. Multinodular enlarged thyroid. Patient did have an echocardiogram in September 2018 which showed an EF of 47%, stage II diastolic dysfunction, and an RVSP estimated at 42 mmHg. Infectious disease was consulted for unclear etiology of sepsis. Her urine was relatively normal. She does have a wound to the left hip and cultures were sent. They are awaiting blood cultures. Plan is for discharge to half-way facility in [place] when medically stable. Wound care is following her. Her rapid Covid and PCR were negative. She does have chronic hypoxemic respiratory failure and COPD and wears supplemental oxygen. Patient is also morbidly obese. DME in the home include cane, glucometer, Rollator, lift chair, and nebulizer. She wears oxygen at 4 L per nasal cannula. She lives at home with her , Burke. They do have 4 steps to enter the home and patient has been having difficulty getting up the stairs recently. Her has had to increasingly assist her with ADLs. Patient uses [facility] in [place] for pharmacy. Her small equipment operator is Katherine Mahan in [place]. Patient reports shortness of breath is improving, she is producing some sputum intermittently, especially when she uses incentive spirometer. She is on baseline oxygen requirement of 4 L per nasal cannula. No significant nausea, vomiting, diarrhea, constipation, or abdominal pain. States her appetite is chronically fair. There has been no changes. She has discussed bariatric surgery with her physicians. Advised her to establish with a new director of home care hospice if she is considering surgery. States she wheezes quite a bit when at home but has nebulizers that improve her symptoms. She denies any fevers or chills today. She does feel quite sleepy and fatigued. No further dysuria. No rashes that she knows of. [facility] Medical History Anxiety Asthma Atrial fibrillation Depression Diabetes Hearing loss, right Hypertension Migraines On home oxygen therapy Pancreatitis Home Medications albuterol sulfate 2.5 mg INHALATION Q6H PRN PRN 09/27/18 [History Last Taken Unknown] bupropion HCl [Wellbutrin XL] 150 mg PO BID 09/27/18 [History Last Taken 09/27/18 16:00] citalopram 40 mg PO DAILY 09/27/18 [History Last Taken 09/27/18 10:00] cyclobenzaprine 10 mg PO TID PRN 09/27/18 [History Last Taken 09/27/18 16:00] gabapentin 300 mg PO TID 09/27/18 [History Last Taken 09/27/18 16:00] insulin glargine U-300 conc 20 unit SQ QHS 09/27/18 [History Last Taken 09/26/18] ranitidine HCl 150 mg PO QHS 09/27/18 [History Last Taken 09/26/18] simvastatin 40 mg PO QHS 09/27/18 [History Last Taken 09/26/18 16:00] acetaminophen 650 mg PO Q6H PRN PRN tab 10/05/18 [Rx Last Taken Unknown] budesonide-formoterol 2 puff INHALATION BID #1 inhaler 10/05/18 [Rx Last Taken Unknown] furosemide 40 mg PO DAILY #1 tab 10/05/18 [Rx Last Taken Unknown] metoprolol tartrate 25 mg PO BID tab 10/05/18 [Rx Last Taken Unknown] potassium chloride 20 meq PO BIDCM tab 10/05/18 [Rx Last Taken Unknown] pioglitazone [Actos] 30 mg PO DAILY@0800 08/28/20 [History Last Taken Unknown] Allergy/AdvReac Type Severity Reaction Status Date / Time fexofenadine [From Astrid] AdvReac Itching Verified 05/02/19 11:54 glyburide AdvReac Itching Verified 05/02/19 11:54 hydrocodone [From Vicodin] AdvReac Itching Verified 05/02/19 11:54 hydromorphone [From Dilaudid] AdvReac Itching Verified 05/02/19 11:54 meperidine [From Demerol] AdvReac Hives Verified 05/02/19 11:54 metformin AdvReac Itching Verified 05/02/19 11:54 oxycodone [From Percocet] AdvReac Itching Verified 05/02/19 11:54 Social History Smoking Status: Former smoker ROS ROS Narrative Review of systems otherwise negative from a constitutional, HEENT, respiratory, cardiovascular, GI, genitourinary, musculoskeletal, skin, neurologic, psychiatric and hematologic system unless stated above. Physical Exam Const Constitutional Narrative: Somewhat lethargic but arousable. No distress. General Appearance: cooperative Nutritional Appearance: morbidly obese Eyes conjunctivae normal Neck supple General: trachea midline Resp normal respiratory effort Effort and Inspection: able to speak in complete sentences Auscultation: clear to auscultation bilaterally and diminished lung sounds diffuse; Negative for rales, rhonchi or wheezes Cardio regular rate, regular rhythm, S1 normal heart sound, S2 normal heart sound and no murmurs GI GI Narrative: Obese Inspection: abdominal distention Auscultation: normoactive bowel sounds Palpation: soft; Negative for tender Extremity General Extremity: edema Skin no rashes or lesions noted Neuro CN's II-XII intact bilaterally, moves all extremities and no focal motor deficits Psych mental status grossly normal and cooperative Activity / Motor Behavior: appropriate eye contact Memory / Cognition: memory grossly intact Insight: fair Judgement: judgement good
[2020-09-01] MEDS: Budesonide Respules 0.5 MG/2 ML AMPUL.NEB. INHALATION (18:54)
[2020-09-01] MEDS: Acetaminophen 325 MG Tablet 650 MG PO (22:15)
[2020-09-01] MEDS: Atorvastatin Calcium 20 MG Tablet PO (22:17)
[2020-09-01] MEDS: Famotidine 20 MG Tablet PO (22:17)
[2020-09-01 22:31] LABS: Bedside Glucose 229 mg/dL (70-110)
[2020-09-02] VITALS (14 sets, daily range): BP systolic 104–160; BP diastolic 58–82; PULSE 86–107; RESP 16–20; TEMP 36.4–36.9; O2SAT 90–98
[2020-09-02 00:16] LABS: Bedside Glucose 249 mg/dL (70-110)
[2020-09-02 06:07] LABS: Absolute Lymphocyte Count 1.51 X10^3/uL (0.83-4.51); Basophil# 0.02 X10^3/uL; Basophil% 0.3 % (0-1); Eosinophil# 0.33 X10^3/uL; Hematocrit 33.5 % (37-47); Hemoglobin 9.9 g/dL (12.0-15.0); Lymphocyte # 1.51 X10^3/ul (0.83-4.51); Lymphocyte % 22.7 % (19-41); Mean Corp Hgb Conc 29.6 g/dL (32-36); Mean Corpuscular Hgb 25.4 pg (27.0-32.0); Mean Corpuscular Volume 86.1 fL (81-99); Mean Platelet Vol. 8.9 fl (6.2-12.0); Monocyte# 0.77 X10^3/uL; Monocyte% 11.6 % (0-10); NRBC Flagged by Analyzer 0 % (0-5); Neutrophil % 59.9 % (47-70); Platelet Count 229 K/mm3 (150-450); RBC Distribution Width CV 14.8 % (11.6-14.6); RBC Distribution Width SD 46.9 fl (35.1-43.9); Red Blood Count 3.89 M/mm3 (4.2-5.4); White Blood Count 6.7 K/mm3 (4.4-11.0)
[2020-09-02] MEDS: Cefazolin 2 GM in 0.9% Normal Saline 100 ML IV ×2 (06:07→13:12)
[2020-09-02] MEDS: Gabapentin 300 MG Capsule PO ×3 (06:07→20:51)
[2020-09-02] MEDS: 0.9% Saline Lock 10 ML Syringe IV ×2 (06:07→13:12)
[2020-09-02] MEDS: Insulin Lispro 100 UNIT/ML INSULN.PEN SC ×4 (06:14→22:06)
[2020-09-02 06:26] LABS: Bedside Glucose 190 mg/dL (70-110)
[2020-09-02 06:37] LABS: Anion Gap 3 (5-15); BUN 8 mg/dL (7-18); BUN/Creat Ratio 14.7 RATIO (10-20); Calcium,Total 9.4 mg/dL (8.5-10.1); Chloride 96 mmol/L (98-107); Creatinine, Serum 0.55 mg/dL (0.55-1.02); EST Glomerular Filtration Rate 119 mL/min (>60); Est Glom Filt Rate - Afr Amer 145 mL/min (>60); Estimated Creatinine Clearance 105.61 ml/min; Glucose 201 mg/dL (74-106); Potassium 3.7 mmol/L (3.5-5.1); Sodium Level 136 mmol/L (136-145)
[2020-09-02] MEDS: Budesonide Respules 0.5 MG/2 ML AMPUL.NEB. INHALATION ×2 (07:20→18:57)
[2020-09-02] MEDS: Albuterol 2.5 MG/3 ML VIAL.NEB. INHALATION ×3 (07:20→18:57)
[2020-09-02] MEDS: Aspirin 81 MG TAB.CHEW PO (07:53)
[2020-09-02] MEDS: Potassium Chloride Oral Tablet 20 MEQ PO ×2 (07:53→16:02)
[2020-09-02] MEDS: Ibuprofen 600 MG Tablet PO ×2 (07:57→20:50)
[2020-09-02] MEDS: cycloBENZAPRine HCl 10 MG Tablet PO ×2 (07:57→20:50)
[2020-09-02] MEDS: Metoprolol Tartrate 25 MG Tablet PO ×2 (09:39→20:51)
[2020-09-02] MEDS: Citalopram 40 MG TABLET PO (09:39)
[2020-09-02] MEDS: Furosemide 40 MG Tablet PO (09:39)
[2020-09-02] MEDS: Enoxaparin 40 MG/0.4 ML Syringe SC ×2 (09:39→20:52)
[2020-09-02] MEDS: buPROPion (XL) 150 MG TABLET.XL PO ×2 (09:39→20:50)
[2020-09-02 11:45] LABS: Bedside Glucose 225 mg/dL (70-110)
--- NOTE | 2020-09-02 13:35 | CASEMGMT ---
CHRISTY called [facility] and spoke with Mattie. CHRISTY let her know that when they get pre-cert to call this SW as yesterday Verónica was helping, but she is not here today. Sharon Workman SMALL BUSINESS REPRESENTATIVE KEVIN
--- NOTE | 2020-09-02 14:07 | PCM.TXEXTCAR ---
Diet 08/28/20 23:26 Diet: Cardiac: Calorie-Controlled Food consistency:: Regular Liquid Consistency:: Regular/Thin How many daily calories?: 1800 calorie Routine Orders/Code Status Enema Type: Fleetz Enema Frequency: Daily PRN Suppository Type: Dulcolax 10mg Suppository Frequency: Daily PRN O2 Liters per Minute: 4 O2 Frequency: Continuous Keep PO Greater than or Equal to (%): 90 Routine Lab Work: - (CBC, BMP) Code Status: Full Code Wound(s) abdomen: Wound Type: scabs left hip: Wound Type: scab with surrounding cellulitis and now skin peeling Dressing Change: Adaptic with dry dressing Suggestions for Active Care Change Position every (hours): 2 Times a day to sit in chair: 3 Therapies Physical Therapy: Eval and Treat Occupational Therapy: Eval and Treat Problem/Diagnosis (1) Weakness: Status: Acute (2) Shortness of breath: Status: Acute (3) Sepsis: Status: Acute Comment: secondary to pneumonia, cellulitis, cystitis (4) Chronic respiratory failure with hypoxia: Status: Chronic (5) Morbid obesity: Status: Chronic (6) Acute on chronic diastolic (congestive) heart failure: Status: Chronic (7) Type 2 diabetes mellitus: Status: Chronic (8) COPD exacerbation: Status: Acute (9) SIRS (systemic inflammatory response syndrome): Status: Acute Allergies/Procedures Done in Hospital Allergies fexofenadine [From Astrid] Adverse Reaction (Verified 05/02/19 11:54) Itching glyburide Adverse Reaction (Verified 05/02/19 11:54) Itching hydrocodone [From Vicodin] Adverse Reaction (Verified 05/02/19 11:54) Itching hydromorphone [From Dilaudid] Adverse Reaction (Verified 05/02/19 11:54) Itching meperidine [From Demerol] Adverse Reaction (Verified 05/02/19 11:54) Hives metformin Adverse Reaction (Verified 05/02/19 11:54) Itching oxycodone [From Percocet] Adverse Reaction (Verified 05/02/19 11:54) Itching Procedures: None Type of Care/Length of Stay Estimated LOS: Convalescent Care Less Than 30 days Type of Care Needed: Skilled Rehab Potential: Good Prognosis: Good Additional Orders/Day of Discharge H&P will serve as current which was dated: 08/28/20 Day of Discharge: 09/02/20 Dietary and Speech Recommendations Dietitian Recommendations/Changes: Will continue 1800 calorie; cardiac diet. Will d/c glucsarah carbajal w/ jessica. Discharge Plan Admission Admit Date/Time: 08/29/20 09:58 Attending Provider: Jefferson Martinez Primary Care Provider: Anahi Portillo Consulting Providers: Jason Clement Instructions Additional Instructions / Restrictions: Left hip wound: Adaptic with dry absorbent pad dressing, change daily and as needed. Discharge Orders/Prescriptions Prescriptions: New cephalexin 500 mg Capsule 500 mg PO Q8 3 Days Qty: 9 RF: 0 Continued cyclobenzaprine 10 MG tablet 10 mg PO TID PRN (Reason: Spasms) RF: 0 albuterol sulfate 2.5 MG/3 ML solution for nebulization 2.5 mg inhalation Q6H PRN PRN (Reason: Sob &/Or Wheezing) RF: 0 simvastatin 40 MG tablet 40 mg PO QHS RF: 0 ranitidine HCl 150 MG tablet 150 mg PO QHS RF: 0 gabapentin 300 MG capsule 300 mg PO TID RF: 0 bupropion HCl [Wellbutrin XL] 150 MG tablet extended release 24 hr 150 mg PO BID RF: 0 citalopram 40 MG tablet 40 mg PO DAILY RF: 0 insulin glargine U-300 conc 300 UNIT/ML insulin pen 20 unit SQ QHS RF: 0 acetaminophen 325 MG tablet 650 mg PO Q6H PRN PRN (Reason: Pain/Fever) RF: 0 potassium chloride 20 MEQ tablet 20 meq PO BIDCM RF: 0 metoprolol tartrate 25 MG tablet 25 mg PO BID RF: 0 furosemide 40 MG tablet 40 mg PO DAILY Qty: 1 RF: 0 budesonide-formoterol 1 INHALER inhaler 2 puff inhalation BID Qty: 1 RF: 0 pioglitazone [Actos] 30 MG tablet 30 mg PO DAILY@0800 RF: 0 Referrals / Follow Up: Anahi Portillo DO [Primary Care Provider] - In 1 Week Disposition Disposition (needs filled in before D/C Order can be placed): [facility] Facility
--- NOTE | 2020-09-02 14:17 | PCM.DC.SUM ---
Documented by User: Holly Souza NP, STOCKING AND BOX SHOP SUPERVISOR-C 09/02/20 14:21 Providers Date of Admission: 08/29/20 Date of Discharge: 09/02/20 Primary Care Physician: Dr. Anahi Portillo DO Consultations 08/30/20 09:06 Consult: Infectious Disease Routine Consulting Provider: Jason Clement Reason for Consult: Bacteremia, SIRS EMERGENT Consult: No MD Notified: Yes Date Notified: 08/31/20 Time Notified: 07:46 Method of Notification: Answering Service 08/30/20 13:49 Consult: Onc/Wound/lye treater Routine Comment: Reason For Visit: SIRS CRITERIA Diagnosis Discharge Diagnosis (1) Weakness: Status: Acute Code(s): R53.1 - Weakness (2) Shortness of breath: Status: Acute Code(s): R06.02 - Shortness of breath (3) Sepsis: Status: Acute Code(s): A41.9 - Sepsis, unspecified organism (4) Chronic respiratory failure with hypoxia: Status: Chronic Code(s): J96.11 - Chronic respiratory failure with hypoxia (5) Morbid obesity: Status: Chronic Code(s): E66.01 - Morbid (severe) obesity due to excess calories (6) Acute on chronic diastolic (congestive) heart failure: Status: Chronic Code(s): I50.33 - Acute on chronic diastolic (congestive) heart failure (7) Type 2 diabetes mellitus: Status: Chronic Code(s): E11.9 - Type 2 diabetes mellitus without complications Qualifiers: Diabetes mellitus watermelon inspector insulin use: with watermelon inspector use (8) COPD exacerbation: Status: Acute Code(s): J44.1 - Chronic obstructive pulmonary disease with (acute) exacerbation (9) SIRS (systemic inflammatory response syndrome): Status: Acute Code(s): R65.10 - Systemic inflammatory response syndrome (SIRS) of non-infectious origin without acute organ dysfunction Medications at Discharge Home Medications albuterol sulfate 2.5 mg INHALATION Q6H PRN PRN 09/27/18 bupropion HCl [Wellbutrin XL] 150 mg PO BID 09/27/18 citalopram 40 mg PO DAILY 09/27/18 cyclobenzaprine 10 mg PO TID PRN 09/27/18 gabapentin 300 mg PO TID 09/27/18 insulin glargine U-300 conc 20 unit SQ QHS 09/27/18 ranitidine HCl 150 mg PO QHS 09/27/18 simvastatin 40 mg PO QHS 09/27/18 acetaminophen 650 mg PO Q6H PRN PRN tab 10/05/18 budesonide-formoterol 2 puff INHALATION BID #1 inhaler 10/05/18 furosemide 40 mg PO DAILY #1 tab 10/05/18 metoprolol tartrate 25 mg PO BID tab 10/05/18 potassium chloride 20 meq PO BIDCM tab 10/05/18 pioglitazone [Actos] 30 mg PO DAILY@0800 08/28/20 cephalexin 500 mg PO Q8 3 Days #9 cap 09/02/20 Hospital Course Operations None Procedures None Summary of Care Provided Minutes Spent on Discharge: 35 Hospital Course: Patient is a 65-year-old female admitted 08/28/2020 due to fever, general malaise. 1. Sepsis, fever- secondary to left hip cellulitis. Chest x-ray unremarkable. Urinalysis unremarkable. Blood culture growing strep group C 1 out of 2 cultures, repeat cultures negative for growth after 48 hours. Urine culture growing strep agalactiae, low colony count. Discontinue further IV antibiotics, transition to oral Keflex to complete course. Rapid Covid and PCR negative. CT of chest without infiltrate. Continue dressing changes as ordered with Adaptic and dry dressing. Follow-up with PCP in 1 week. SNF at discharge for rehab. 2. Chronic combined heart failure- continue home Lasix regimen. Echocardiogram September 2018 demonstrated an EF of 47%, stage II diastolic dysfunction, pulmonary artery systolic pressure 42 mmHg. 3. Type 2 diabetes mellitus-continue home oral and insulin regimen. 4. COPD with chronic hypoxic respiratory failure-continue supplemental oxygen to maintain O2 at or above 90%. 5. Hypertension-stable, continue metoprolol. 6. Hyperlipidemia- continue statin. 7. Depression/anxiety-on bupropion, citalopram. 8. SOBEIDA-on CPAP. 9. Morbid obesity-BMI 59. Diet and lifestyle modifications. Physical Exam Const alert, oriented x3 and no apparent distress Orientation / Consciousness: awake, oriented to person, oriented to place and oriented to time HEENT normocephalic and moist oral mucous membranes Eyes PERRL, EOMs intact bilaterally and conjunctivae normal Neck no lymphadenopathy Resp clear to auscultation bilaterally Auscultation: diminished lung sounds Cardio regular rate, regular rhythm and no murmurs Peripheral Pulses: pulses 2+ throughout GI normal to inspection, nondistended, normoactive bowel sounds, non-tender and non-distended Extremity normal to inspection Skin no rashes or lesions noted Skin Narrative: Left hip wound, no drainage noted with surrounding cellulitis. Chronic skin changes bilateral lower extremities. Lesions: no lesions Rashes: no rashes Trauma: no lacerations or abrasions Neuro CN's II-XII intact bilaterally, no focal motor deficits, no sensory deficits noted and deep tendon reflexes 2+ bilaterally Psych mental status grossly normal and affect normal Patient seen and examined prior to discharge. Physical assessment as noted above. Patient is stable for discharge with follow up recommendations as noted above. This patient was seen by ERNESTO Stanley under the supervision of Dr. Martinez. Weight / BMI Weight Weight: 388 lb 0.217 oz Body Mass Index (BMI) 59.0 ABG / Lab / Microbiology Data Result Diagrams: 09/02/20 05:40 09/02/20 05:40 Laboratory: Laboratory Results - last 24 hr 09/01/20 16:27: POC Glucose 249 H 09/01/20 21:54: POC Glucose 229 H 09/02/20 05:40: WBC 6.7, RBC 3.89 L, Hgb 9.9 L, Hct 33.5 L, MCV 86.1, MCH 25.4 L, MCHC 29.6 L, RDW Std Deviation 46.9 H, RDW Coeff of Hemanth 14.8 H, Plt Count 229, MPV 8.9, Immature Gran % (Auto) 0.500, Neut % (Auto) 59.9, Lymph % (Auto) 22.7, [place] % (Auto) 11.6 H, Eos % (Auto) 5.0, Baso % (Auto) 0.3, Absolute Neuts (auto) 4.0, Absolute Lymphs (auto) 1.51, Nucleated RBC % 0 09/02/20 05:40: Sodium 136, Potassium 3.7, Chloride 96 L, Carbon Dioxide 37.0 H, Anion Gap 3 L, BUN 8, Creatinine 0.55, Estim Creat Clear Calc 105.61, Est GFR (MDRD) Af Amer 145, Est GFR (MDRD) Non-Af 119, BUN/Creatinine Ratio 14.7, Glucose 201 H, Calcium 9.4 09/02/20 06:14: POC Glucose 190 H 09/02/20 11:14: POC Glucose 225 H Microbiology: Microbiology 09/02/20 09:30 Mucosa - Nasopharyngeal SARS-CoV-2 Antigen (Rapid) - Final 08/28/20 19:09 Blood Culture (Wb) - Anticubital Right Blood Culture - Final Streptococcus group C 08/30/20 09:30 Blood Culture (Wb) - Anticubital Left Blood Culture - Preliminary No growth in 48 hours. 08/30/20 09:20 Blood Culture (Wb) - Anticubital Right Blood Culture - Preliminary No growth in 48 hours. 08/28/20 19:08 Blood Culture (Wb) - Anticubital Left Blood Culture - Preliminary No growth in 48 hours. 08/28/20 20:24 Urine Catheter - Catheter Urine Culture - Final Streptococcus agalactiae (B) 08/29/20 10:45 Mucosa - Nasopharyngeal Respiratory Panel (PCR) - Final 08/29/20 08:24 Urine, Clean Catch Streptococcus pneumoniae Antigen (M - Final 08/29/20 08:24 Urine, Clean Catch Legionella Antigen - Final 08/28/20 20:45 Interface Orders SARS-CoV-2 Antigen (Rapid) - Final Meaningful Use Info Meaningful Use Diagnoses (Choose all that apply): None applicable Discharge Plan Admission Admit Date/Time: 08/29/20 09:58 Attending Provider: Jefferson Martinez Primary Care Provider: Anahi Portillo Consulting Providers: Jason Clement Instructions Additional Instructions / Restrictions: Left hip wound: Adaptic with dry absorbent pad dressing, change daily and as needed. Discharge Orders/Prescriptions Prescriptions: New cephalexin 500 mg Capsule 500 mg PO Q8 3 Days Qty: 9 RF: 0 Continued cyclobenzaprine 10 MG tablet 10 mg PO TID PRN (Reason: Spasms) RF: 0 albuterol sulfate 2.5 MG/3 ML solution for nebulization 2.5 mg inhalation Q6H PRN PRN (Reason: Sob &/Or Wheezing) RF: 0 simvastatin 40 MG tablet 40 mg PO QHS RF: 0 ranitidine HCl 150 MG tablet 150 mg PO QHS RF: 0 gabapentin 300 MG capsule 300 mg PO TID RF: 0 bupropion HCl [Wellbutrin XL] 150 MG tablet extended release 24 hr 150 mg PO BID RF: 0 citalopram 40 MG tablet 40 mg PO DAILY RF: 0 insulin glargine U-300 conc 300 UNIT/ML insulin pen 20 unit SQ QHS RF: 0 acetaminophen 325 MG tablet 650 mg PO Q6H PRN PRN (Reason: Pain/Fever) RF: 0 potassium chloride 20 MEQ tablet 20 meq PO BIDCM RF: 0 metoprolol tartrate 25 MG tablet 25 mg PO BID RF: 0 furosemide 40 MG tablet 40 mg PO DAILY Qty: 1 RF: 0 budesonide-formoterol 1 INHALER inhaler 2 puff inhalation BID Qty: 1 RF: 0 pioglitazone [Actos] 30 MG tablet 30 mg PO DAILY@0800 RF: 0 Referrals / Follow Up: Anahi Portillo DO [Primary Care Provider] - In 1 Week Disposition Disposition (needs filled in before D/C Order can be placed): [facility] Facility Documented by User: Dr. Jefferson Martinez MD 09/03/20 15:17 Providers Date of Admission: 08/29/20 Date of Discharge: 09/03/20 Reason For Visit: SIRS CRITERIA Medications at Discharge Home Medications albuterol sulfate 2.5 mg INHALATION Q6H PRN PRN 09/27/18 bupropion HCl [Wellbutrin XL] 150 mg PO BID 09/27/18 citalopram 40 mg PO DAILY 09/27/18 cyclobenzaprine 10 mg PO TID PRN 09/27/18 gabapentin 300 mg PO TID 09/27/18 insulin glargine U-300 conc 20 unit SQ QHS 09/27/18 ranitidine HCl 150 mg PO QHS 09/27/18 simvastatin 40 mg PO QHS 09/27/18 acetaminophen 650 mg PO Q6H PRN PRN tab 10/05/18 budesonide-formoterol 2 puff INHALATION BID #1 inhaler 10/05/18 furosemide 40 mg PO DAILY #1 tab 08/23/19 metoprolol tartrate 25 mg PO BID tab 10/05/18 potassium chloride 20 meq PO BIDCM tab 10/05/18 pioglitazone [Actos] 30 mg PO DAILY@0800 08/28/20 cephalexin 500 mg PO Q8 3 Days #9 cap 09/02/20 Physical Exam Const alert, oriented x3 and no apparent distress General Appearance: cooperative HEENT normocephalic and moist oral mucous membranes Eyes PERRL, EOMs intact bilaterally and conjunctivae normal Neck supple and no JVD Resp normal respiratory effort, no retractions, no use of accessory muscles and clear to auscultation bilaterally Auscultation: Negative for crackles, rales, rhonchi or wheezes Cardio regular rate, regular rhythm, S1 normal heart sound, S2 normal heart sound and no murmurs GI soft to palpation, non-tender and non-distended; Negative for hepatosplenomegaly Extremity no clubbing, cyanosis or edema Skin Skin Narrative: Left hip wound with surrounding redness which appears to be improving Neuro no focal motor deficits and no sensory deficits noted Psych affect normal Appearance: appropriate ABG / Lab / Microbiology Data Result Diagrams: 09/02/20 05:40 09/02/20 05:40 Discharge Plan Admission Admit Date/Time: 08/29/20 09:58 Attending Provider: Jefferson Martinez Primary Care Provider: Anahi Portillo Consulting Providers: Jason Clement Instructions Additional Instructions / Restrictions: Left hip wound: Adaptic with dry absorbent pad dressing, change daily and as needed. Discharge Orders/Prescriptions Prescriptions: New cephalexin 500 mg Capsule 500 mg PO Q8 3 Days Qty: 9 RF: 0 Continued cyclobenzaprine 10 MG tablet 10 mg PO TID PRN (Reason: Spasms) RF: 0 albuterol sulfate 2.5 MG/3 ML solution for nebulization 2.5 mg inhalation Q6H PRN PRN (Reason: Sob &/Or Wheezing) RF: 0 simvastatin 40 MG tablet 40 mg PO QHS RF: 0 ranitidine HCl 150 MG tablet 150 mg PO QHS RF: 0 gabapentin 300 MG capsule 300 mg PO TID RF: 0 bupropion HCl [Wellbutrin XL] 150 MG tablet extended release 24 hr 150 mg PO BID RF: 0 citalopram 40 MG tablet 40 mg PO DAILY RF: 0 insulin glargine U-300 conc 300 UNIT/ML insulin pen 20 unit SQ QHS RF: 0 acetaminophen 325 MG tablet 650 mg PO Q6H PRN PRN (Reason: Pain/Fever) RF: 0 potassium chloride 20 MEQ tablet 20 meq PO BIDCM RF: 0 metoprolol tartrate 25 MG tablet 25 mg PO BID RF: 0 furosemide 40 MG tablet 40 mg PO DAILY Qty: 1 RF: 0 budesonide-formoterol 1 INHALER inhaler 2 puff inhalation BID Qty: 1 RF: 0 pioglitazone [Actos] 30 MG tablet 30 mg PO DAILY@0800 RF: 0 Referrals / Follow Up: Anahi Portillo DO [Primary Care Provider] - In 1 Week Disposition Disposition (needs filled in before D/C Order can be placed): [facility] Facility Charges/Coding Addendum Addendum: Dr. Martinez: I personally reviewed the chart and examined the patient, and agree with the above findings. 64-year-old female presented from home with fever from an unclear source. Urine was unremarkable, and her blood culture appears to just have a contaminant. She has been treated with vancomycin and Zosyn and her white count has improved from 15 to 9.5, obviously something is being treated. Urine culture from 08/28/20 shows 1000-10,000 CFU of group B strep, blood cultures from 08/28/2020 also show group C strep and 1 out of 4 blood culture bottles, repeat blood cultures have been negative. We will continue to monitor and continue with her antibiotics. 09/01/2020: Feels much better today, she does have more significant redness on her left hip but this is likely the source of her fevers with cellulitis. No good culture obtainable we will continue with empiric antibiotics and obtain pre-CERT for [facility] the [facility] to continue oral antibiotics on discharge, antibiotics were transitioned to Ancef from Zosyn. 09/02/2020: Feels back to baseline today. Redness is improving, plan will be for discharge on oral Keflex once she finally gets insurance approval for discharge. 09/03/2020: Feels much better today, would [facility]. Continue with Keflex on discharge complete antibiotic course for cellulitis. She also need localized wound care to the left hip as well at the [facility]. Visit Charges Inpatient E&M: 97847 Disch Hosp
--- NOTE | 2020-09-02 14:22 | PN.HOSP_ITS ---
Documented by User: Holly Souza NP, LOST CHARGE CARD CLERK-C 09/02/20 14:23 Subjective Subjective Patient seen and examined. Awaiting approval to SNF. Denies new symptoms or complaints. Objective Data Objective Data Vital Signs: Vital Signs Temp Pulse Resp BP Pulse Ox 98.2 F 86 16 133/62 H 94 09/02/20 09:40 09/02/20 13:24 09/02/20 13:24 09/02/20 09:40 09/02/20 09:40 Oxygen Flow Rate (L/min) 4 Oxygen Delivery Method Nasal Cannula Weight: 388 lb 0.217 oz Body Mass Index (BMI) 59.0 Intake & Output: Intake and Output for Last 24 Hours 08/31/20 09/01/20 09/02/20 23:59 23:59 23:59 Intake Total 1620.00 / 1620.00 840 / 1190 1030 / 1030 Output Total 2200 / 2200 1950 / 2300 1650 / 1650 Balance -580.00 / -580.00 -1110 / -1110 -620 / -620 Lab / Micro Data Result Diagrams: 09/02/20 05:40 09/02/20 05:40 Labs: Laboratory Results - last 24 hr 09/01/20 16:27: POC Glucose 249 H 09/01/20 21:54: POC Glucose 229 H 09/02/20 05:40: WBC 6.7, RBC 3.89 L, Hgb 9.9 L, Hct 33.5 L, MCV 86.1, MCH 25.4 L , MCHC 29.6 L, RDW Std Deviation 46.9 H, RDW Coeff of Hemanth 14.8 H, Plt Count 229, MPV 8.9, Immature Gran % (Auto) 0.500, Neut % (Auto) 59.9, Lymph % (Auto) 22.7, [place] % (Auto) 11.6 H, Eos % (Auto) 5.0, Baso % (Auto) 0.3, Absolute Neuts (auto) 4.0, Absolute Lymphs (auto) 1.51, Nucleated RBC % 0 09/02/20 05:40: Sodium 136, Potassium 3.7, Chloride 96 L, Carbon Dioxide 37.0 H, Anion Gap 3 L, BUN 8, Creatinine 0.55, Estim Creat Clear Calc 105.61, Est GFR (MDRD) Af Amer 145, Est GFR (MDRD) Non-Af 119, BUN/Creatinine Ratio 14.7, Glucose 201 H, Calcium 9.4 09/02/20 06:14: POC Glucose 190 H 09/02/20 11:14: POC Glucose 225 H Micro: Microbiology 09/02/20 09:30 Mucosa - Nasopharyngeal SARS-CoV-2 Antigen (Rapid) - Final 08/28/20 19:09 Blood Culture (Wb) - Anticubital Right Blood Culture - Final Streptococcus group C 08/30/20 09:30 Blood Culture (Wb) - Anticubital Left Blood Culture - Preliminary No growth in 48 hours. 08/30/20 09:20 Blood Culture (Wb) - Anticubital Right Blood Culture - Preliminary No growth in 48 hours. 08/28/20 19:08 Blood Culture (Wb) - Anticubital Left Blood Culture - Preliminary No growth in 48 hours. 08/28/20 20:24 Urine Catheter - Catheter Urine Culture - Final Streptococcus agalactiae (B) 08/29/20 10:45 Mucosa - Nasopharyngeal Respiratory Panel (PCR) - Final 08/29/20 08:24 Urine, Clean Catch Streptococcus pneumoniae Antigen (M - Final 08/29/20 08:24 Urine, Clean Catch Legionella Antigen - Final 08/28/20 20:45 Interface Orders SARS-CoV-2 Antigen (Rapid) - Final Rhythm Strip Rhythm Strip: Sinus Tach Rate: 104 Ectopy: None Physical Exam Const alert, oriented x3 and no apparent distress Orientation / Consciousness: awake, oriented to person, oriented to place and oriented to time HEENT normocephalic and moist oral mucous membranes Eyes PERRL, EOMs intact bilaterally and conjunctivae normal Neck no lymphadenopathy Resp normal respiratory effort and clear to auscultation bilaterally Cardio regular rate, regular rhythm and no murmurs Peripheral Pulses: pulses 2+ throughout GI normal to inspection, nondistended, normoactive bowel sounds, non-tender and non-distended Extremity normal to inspection Skin no rashes or lesions noted Skin Narrative: Left hip wound, surrounding redness. Dressing intact. Lesions: no lesions Rashes: no rashes Trauma: no lacerations or abrasions Neuro CN's II-XII intact bilaterally, no focal motor deficits, no sensory deficits noted and deep tendon reflexes 2+ bilaterally Psych mental status grossly normal and affect normal Assessment & Plan Assessment/Plan (1) SIRS (systemic inflammatory response syndrome): PLAN: 1. Sepsis, fever-suspect secondary to left hip cellulitis. Chest x-ray unremarkable. Urinalysis unremarkable. Blood culture growing strep group C 1 out of 2 cultures, repeat cultures with no growth. Urine culture growing strep agalactiae, low colony count. Plan for oral Keflex at discharge. Rapid Covid and PCR negative. CT of chest without infiltrate. Wound RN consult. ID consulted. SNF when pending acceptance. 2. Chronic combined heart failure- continue home Lasix regimen. Echocardiogram September 2018 demonstrated an EF of 47%, stage II diastolic dysfunction, pulmonary artery systolic pressure 42 mmHg. 3. Type 2 diabetes [id number] with sliding scale insulin. Continue home insulin regimen. 4. COPD with chronic hypoxic respiratory failure-continue supplemental oxygen to maintain O2 at or above 90%. 5. Hypertension-stable, continue metoprolol. 6. Hyperlipidemia- continue statin. 7. Depression/anxiety-on bupropion, citalopram. 8. SOBEIDA-on CPAP. 9. Morbid obesity-BMI 59. Diet and lifestyle modifications. DVT prophylaxis-Lovenox subcu Discharge plan: Awaiting SNF approval. This patient was seen by ERNESTO Stanley under the supervision of Dr. Martinez. Documented by User: Dr. Jefferson Martinez MD 09/02/20 16:30 Objective Data Lab / Micro Data Result Diagrams: 09/02/20 05:40 09/02/20 05:40 Charges/Coding Addendum Addendum: Dr. Martinez: I personally reviewed the chart and examined the patient, and agree with the above findings. 64-year-old female presented from home with fever from an unclear source. Urine was unremarkable, and her blood culture appears to just have a contaminant. She has been treated with vancomycin and Zosyn and her white count has improved from 15 to 9.5, obviously something is being treated. Urine culture from 08/28/20 shows 1000-10,000 CFU of group B strep, blood cultures from 08/28/2020 also show group C strep and 1 out of 4 blood culture bottles, repeat blood cultures have been negative. We will continue to monitor and continue with her antibiotics. 09/01/2020: Feels much better today, she does have more significant redness on her left hip but this is likely the source of her fevers with cellulitis. No good culture obtainable we will continue with empiric antibiotics and obtain pre-CERT for transfer back to the shelter to continue oral antibiotics on discharge, antibiotics were transitioned to Ancef from Zosyn. 09/02/2020: Feels back to baseline today. Redness is improving, plan will be for discharge on oral Keflex once she finally gets insurance approval for discharge. Visit Charges Inpatient E&M: 31760 Subs Hosp L2
--- NOTE | 2020-09-02 15:33 | PHA.DC.MR ---
Pharmacy Service has performed discharge medication reconciliation for this patient. The patient's discharge medication list was reviewed for discrepancies and discrepancies were resolved. Home Medications albuterol sulfate 2.5 mg INHALATION Q6H PRN PRN 09/27/18 bupropion HCl [Wellbutrin XL] 150 mg PO BID 09/27/18 citalopram 40 mg PO DAILY 09/27/18 cyclobenzaprine 10 mg PO TID PRN 09/27/18 gabapentin 300 mg PO TID 09/27/18 insulin glargine U-300 conc 20 unit SQ QHS 09/27/18 ranitidine HCl 150 mg PO QHS 09/27/18 simvastatin 40 mg PO QHS 09/27/18 acetaminophen 650 mg PO Q6H PRN PRN tab 10/05/18 budesonide-formoterol 2 puff INHALATION BID #1 inhaler 10/05/18 furosemide 40 mg PO DAILY #1 tab 10/05/18 metoprolol tartrate 25 mg PO BID tab 10/05/18 potassium chloride 20 meq PO BIDCM tab 10/05/18 pioglitazone [Actos] 30 mg PO DAILY@0800 08/28/20 cephalexin 500 mg PO Q8 3 Days #9 cap 09/02/20
--- NOTE | 2020-09-02 15:58 | PCM.PN.ID ---
Physical Exam Narrative Feeling better, still some dysuria. No fever. Const alert and no apparent distress General Appearance: cooperative Neck supple and nodes Resp normal air movement and clear to auscultation bilaterally Cardio regular rate and regular rhythm GI normal to inspection, nondistended, normoactive bowel sounds Extremity no clubbing, cyanosis or edema Skin Skin Narrative: L hip erythema ID ID: Route of nutrition/ use of supplements: [] Nutritional Intake: [] IV Site: [] Carmen Catheter: [] Assessment & Plan Assessment/Plan (1) Sepsis: PLAN: Unclear source. UA was relatively normal but persistent dysuria. Single Bcx with strep. Ucx with a different strep. L hip cellulitis receding slowly. Improved on cefazolin, ok for d/c with a few more days keflex. Will follow as needed. Have encouraged her to get covid vaccine. (2) Type 2 diabetes mellitus: QUALIFIERS: Diabetes mellitus long term acute care registered nurse insulin use: with long term acute care registered nurse use (3) Cystitis:
[2020-09-02 16:25] LABS: Bedside Glucose 231 mg/dL (70-110)
[2020-09-02] MEDS: Famotidine 20 MG Tablet PO (20:50)
[2020-09-02] MEDS: Atorvastatin Calcium 20 MG Tablet PO (20:51)
[2020-09-02] MEDS: Cephalexin 500 MG Capsule PO (20:51)
[2020-09-02 22:16] LABS: Bedside Glucose 212 mg/dL (70-110)
[2020-09-03] VITALS (9 sets, daily range): BP systolic 111–141; BP diastolic 60–69; PULSE 87–109; RESP 18–20; TEMP 36.2–36.8; O2SAT 94–97
[2020-09-03] MEDS: Gabapentin 300 MG Capsule PO ×2 (05:37→13:06)
[2020-09-03] MEDS: Cephalexin 500 MG Capsule PO ×2 (05:37→13:06)
[2020-09-03] MEDS: Budesonide Respules 0.5 MG/2 ML AMPUL.NEB. INHALATION (06:42)
[2020-09-03] MEDS: Albuterol 2.5 MG/3 ML VIAL.NEB. INHALATION ×2 (06:42→12:49)
[2020-09-03] MEDS: Insulin Lispro 100 UNIT/ML INSULN.PEN SC ×3 (06:47→15:58)
[2020-09-03 06:55] LABS: Bedside Glucose 177 mg/dL (70-110)
[2020-09-03] MEDS: Aspirin 81 MG TAB.CHEW PO (08:12)
[2020-09-03] MEDS: Potassium Chloride Oral Tablet 20 MEQ PO ×2 (08:12→16:00)
[2020-09-03] MEDS: Ibuprofen 600 MG Tablet PO (08:15)
[2020-09-03] MEDS: cycloBENZAPRine HCl 10 MG Tablet PO (08:15)
--- NOTE | 2020-09-03 08:45 | CASEMGMT ---
CHRISTY discovered that [facility] left a voice mail (Mon am) for Verónica who was helping SW the other day, but was not in yesterday. Apparently insurance wanted updated information on patient. CHRISTY faxed updates to [facility]. Await pre-cert. Sharon Workman MEDICAL ADMINISTRATIVE ASSISTANT INDUSTRIAL RADIOGRAPHER
[2020-09-03] MEDS: Metoprolol Tartrate 25 MG Tablet PO (09:14)
[2020-09-03] MEDS: Citalopram 40 MG TABLET PO (09:15)
[2020-09-03] MEDS: Furosemide 40 MG Tablet PO (09:15)
[2020-09-03] MEDS: Enoxaparin 40 MG/0.4 ML Syringe SC (09:15)
[2020-09-03] MEDS: buPROPion (XL) 150 MG TABLET.XL PO (09:15)
[2020-09-03] MEDS: Polyethylene Glycol 3350 17 GM PACKET PO (09:32)
[2020-09-03 11:20] LABS: Bedside Glucose 310 mg/dL (70-110)
--- NOTE | 2020-09-03 14:01 | NURSING ---
wound photo: left hip
--- NOTE | 2020-09-03 15:23 | CASEMGMT ---
CHRISTY received a call from Nena at [facility]. She received authorization for patient. CHRISTY let physician and RN know. [facility] is going to fax orders, notify family, and set up transport. Plan: d/c to [facility] under skilled level of care on a convalescent stay. Physicians will transport patient. Sharon Workman SCRAP HANDLER KEVIN
--- NOTE | 2020-09-03 15:51 | NURSING ---
This RN called and gave report to ANGEL Goncalves at [facility].
[2020-09-03 17:21] LABS: Bedside Glucose 219 mg/dL (70-110)
== END 2020-09-03 19:54 | disposition skilled nursing facility (03) | DRG 603 ==
LOC: ED 21:19 → PCU 22:44
PROVIDERS: Family Medicine; Nurse Practitioner Family; Admitting Provider Student in an Organized Health Care Education/Training Program; Emergency Provider Emergency Medicine; PCP Family Medicine; Visit Provider Family Medicine
DX: L03.116 Cellulitis of left lower limb (principal); E66.2 Morbid (severe) obesity with alveolar hypoventilation; I50.42 Chronic combined systolic (congestive) and diastolic (congestive) heart failure; Z68.43 Body mass index [BMI] 50.0-59.9, adult; I11.0 Hypertensive heart disease with heart failure; E11.40 Type 2 diabetes mellitus with diabetic neuropathy, unspecified; Z79.4 Long term (current) use of insulin; J44.9 Chronic obstructive pulmonary disease, unspecified; E78.5 Hyperlipidemia, unspecified; K76.89 Other specified diseases of liver; E04.2 Nontoxic multinodular goiter; F32.9 Major depressive disorder, single episode, unspecified; F41.9 Anxiety disorder, unspecified; R91.8 Other nonspecific abnormal finding of lung field; Z99.81 Dependence on supplemental oxygen; Z79.899 Other long term (current) drug therapy; Z79.82 Long term (current) use of aspirin; Z87.891 Personal history of nicotine dependence
CPT/HCPCS: 36415; 71045; 71250; 80048; 80053; 80202; 81001; 82962; 83605; 83735; 83880; 84145; 84439; 84443; 85025; 85610; 85730; 87040; 87077; 87086; 87088; 87186; 87426; 87449; 87633; 87635; 93005; 94640; 97110; 97116; 97162; 97166; 97530; 97535; 97802; 99285; J7030; J7040; J7050; P9612; U0005; A4216; J2405; U0003

== ENCOUNTER 2022-04-27 14:42 | Emergency (ER) | payer MEDICARE, SELFPAY ==
[2022-04-27 14:43] VITALS: BP 156/82; PULSE 98; RESP 20; TEMP 36.3; O2SAT 93; BMI 47.1
--- NOTE | 2022-04-27 15:28 | EX.ED.DYSGE1 ---
HPI History of Present Illness Chief Complaint: Wound Detail of Chief Complaint: Wound/yeast infection to groin Informant: patient Narrative Narrative: Patient presents with yeast infection to her groin. Patient states that she has had this red itchy and painful rash for about 10 days. She was seen at urgent care and had a urinalysis and they started her on Macrobid 10 days ago. Patient was not given any antifungals. Patient is a type II diabetic. She has not checked her blood sugar in about a month and has been without any meds for about a year she states. Patient denies fever. She denies vomiting. She complains of some skin breakdown to her groin. [facility] Medical History Anxiety Asthma Atrial fibrillation Depression Diabetes Hearing loss, right Hypertension Migraines On home oxygen therapy Pancreatitis Home Medications albuterol sulfate 2.5 mg/3 mL (0.083 %) solution for nebulization 2.5 mg inhalation Q6H PRN PRN Sob &/Or Wheezing 09/27/18 [History Last Taken Unknown] bupropion HCl 150 mg 24 hr tablet, extended release (Wellbutrin XL) 150 mg PO BID depression 09/27/18 [History Last Taken 09/27/18 16:00] citalopram 40 mg tablet 40 mg PO DAILY depression 09/27/18 [History Last Taken 09/27/18 10:00] cyclobenzaprine 10 mg tablet 10 mg PO TID PRN Spasms 09/27/18 [History Last Taken 09/27/18 16:00] gabapentin 300 mg capsule 300 mg PO TID nerve pain 09/27/18 [History Last Taken 09/27/18 16:00] insulin glargine U-300 conc 300 unit/mL (1.5 mL) subcutaneous pen 20 unit SQ QHS glucose 09/27/18 [History Last Taken 09/26/18] ranitidine HCl 150 mg tablet 150 mg PO QHS acid reflux 09/27/18 [History Last Taken 09/26/18] simvastatin 40 mg tablet 40 mg PO QHS cholesterol 09/27/18 [History Last Taken 09/26/18 16:00] acetaminophen 325 mg tablet 650 mg PO Q6H PRN PRN Pain/Fever 10/05/18 [Rx Last Taken Unknown] budesonide-formoterol HFA 160 mcg-4.5 mcg/actuation aerosol inhaler 2 puff inhalation BID ##1 10/05/18 [Rx Last Taken Unknown] furosemide 40 mg tablet 40 mg PO DAILY #1 TAB 10/05/18 [Rx Last Taken Unknown] metoprolol tartrate 25 mg tablet 25 mg PO BID 10/05/18 [Rx Last Taken Unknown] potassium chloride 20 mEq tablet,extended release(part/cryst) 20 meq PO BIDCM 10/05/18 [Rx Last Taken Unknown] pioglitazone 30 mg tablet (Actos) 30 mg PO DAILY@0800 08/28/20 [History Last Taken Unknown] cephalexin 500 mg capsule 500 mg PO Q8 3 days #9 caps 09/02/20 [Rx Last Taken Unknown] fluconazole 150 mg tablet (Diflucan) 150 mg PO DAILY #3 tabs 04/27/22 [Rx Last Taken Unknown] insulin glargine-yfgn 100 unit/mL (3 mL) subcutaneous pen 20 unit (0.2 mL) subcut QPM #15 mL 04/27/22 [Rx Last Taken Unknown] nystatin-triamcinolone 100,000 unit/g-0.1 % topical cream 1 applic topical BID #60 grams 04/27/22 [Rx Last Taken Unknown] pioglitazone 30 mg tablet (Actos) 30 mg PO DAILY #30 tabs 04/27/22 [Rx Last Taken Unknown] Allergy/AdvReac Type Severity Reaction Status Date / Time fexofenadine [From Astrid] AdvReac Itching Verified 04/27/22 14:46 glyburide AdvReac Itching Verified 04/27/22 14:46 hydrocodone [From Vicodin] AdvReac Itching Verified 04/27/22 14:46 hydromorphone [From Dilaudid] AdvReac Itching Verified 04/27/22 14:46 meperidine [From Demerol] AdvReac Hives Verified 04/27/22 14:46 metformin AdvReac Itching Verified 04/27/22 14:46 oxycodone [From Percocet] AdvReac Itching Verified 04/27/22 14:46 Social History Smoking Status: Former smoker ROS ROS ED Review of Systems ROS Unobtainable: other Constitutional Constitutional ED: Reports lethargy; Denies chills, fever(s), sweats or weight loss Eyes Eyes: Denies blurry vision, change in vision or diplopia ENT ENT ED: Denies rhinorrhea or sore throat Cardiovascular Cardiovascular: Denies chest pain, orthopnea or racing heartbeat Respiratory/Chest Respiratory/Chest: Denies cough, dyspnea, dyspnea on exertion, orthopnea or sputum Gastrointestinal Gastrointestinal: Denies abdominal pain, diarrhea, nausea or vomiting Genitourinary Genitourinary ED: Denies dysuria, hematuria or urinary frequency Musculoskeletal Musculoskeletal: Denies arthralgias, back pain, myalgias or neck pain Integumentary Reports rash and other Details: Rash to groin and genitalia. ; Denies abscess or Abrasions Neurologic Neurologic: Denies headache(s) or weakness Psychiatric Psychiatric: Denies anxiety, depression or suicidal thoughts Endocrine Endocrinology: Denies polydipsia, polyphagia or polyuria Hematologic/Lymphatic Hematologic/Lymphatic: Denies easy bleeding, easy bruising or lymphadenopathy Allergic/Immunologic Allergic/Immunologic ED: Denies mouth swelling, tongue swelling or urticaria EXAM Physical Exam Const Vital Signs: 04/27/22 14:43 Temperature 97.4 F L Temperature Source Temporal Pulse Rate 98 Respiratory Rate 20 H Blood Pressure 156/82 H Blood Pressure Mean 106 Pulse Ox 93 Oxygen Delivery Method Nasal Cannula Oxygen Flow Rate (L/min) 3 Positive well nourished and well developed General Appearance ED: well developed and NAD HEENT Reports TM's clear and moist mucous membranes normocephalic and atraumatic; Negative for trauma or tenderness Tympanic Membrane ED: Yes TM's clear Eyes PERRL and EOMs intact bilaterally General Eye ED: Negative for pale conjunctiva or scleral icterus Neck no lymphadenopathy, supple and no JVD General: Negative for tenderness Chest Wall inspection of chest normal and palpation of chest normal Chest: Negative for tenderness Resp normal respiratory effort and clear to auscultation bilaterally Effort and Inspection: Negative for respiratory distress or pain with movement Auscultation: Negative for rhonchi, wheezes or diminished lung sounds Cardio regular rate, regular rhythm, S1 normal heart sound, S2 normal heart sound and no murmurs Peripheral Pulses: pulses 2+ throughout GI normal to inspection, nondistended, normoactive bowel sounds, soft to palpation, non-tender, non-distended and no masses Back/Spine no CVA tenderness and no thoracic nor lumbar tenderness Extremity normal to inspection General Extremety ED: Negative for edema General Extremity: Negative for edema Neuro oriented x3, CN's II-XII intact bilaterally, no sensory deficits noted and gait normal Sensorium / Orientation: awake, alert, oriented to person, oriented to place and oriented to time Motor Exam: strength 5/5 throughout and strength abnormal Psych mental status grossly normal Skin no wounds Skin Narrative: Patient does have diffuse erythema and weepy rash in right and left groin with some denuded excoriated skin. No cellulitic changes noted. Rash is typical for Lupe. MDM MDM MDM Narrative Medical decision making narrative: Patient presents with urinary frequency and a rash in her groin. Rash is typical of candidiasis. I did check a urinalysis which was essentially unremarkable although she did have thousand glucose. I suspect her frequency may be related to her diabetes being left untreated. I did check a fingerstick blood sugar and was 389. Patient does not appear ill. I will write her a prescription for her Actos and and her her insulin. Patient states that she will follow-up with endocrinology and will get a primary care physician for follow-up. I will start her on Diflucan as well as topical antifungal and she is advised to keep the area dry. We will start her on nystatin. Lab Data Labs: Laboratory Results - last 24 hr 04/27/22 04/27/22 15:30 15:40 Urine Color Yellow Urine Clarity Clear Urine pH 6.0 Ur Specific [place] 1.010 Urine Protein Negative Urine Glucose (UA) 1000 H Urine Ketones Negative Urine Occult Blood Negative Urine Nitrite Negative Urine Bilirubin Negative Urine Urobilinogen Normal Ur Leukocyte Esterase 25 H Urine RBC 0 SEEN Urine WBC 0-5 SEEN Ur Squamous Epith Cells 0-5 SEEN Urine Bacteria 0 SEEN Urine Mucus 0 SEEN POC Glucose 389 H Discharge Plan Triage Chief Complaint: Wound ED Provider: Katja Major Dx/Rx/DC Orders Clinical Impression: Lupe infection, Diabetes mellitus type 2 in obese Instructions: ED Lupe Skin Infection (Adult), ED Diabetes- Overview Prescriptions: New fluconazole [Diflucan] 150 mg tablet 150 mg PO DAILY Qty: 3 0RF nystatin-triamcinolone 100,000-0.1 unit/g-% cream 1 applic topical BID Qty: 60 0RF pioglitazone [Actos] 30 mg tablet 30 mg PO DAILY Qty: 30 0RF insulin glargine-yfgn 100 unit/mL (3 mL) insulin pen 20 unit subcut QPM Qty: 15 0RF No Action cyclobenzaprine 10 MG tablet 10 mg PO TID PRN (Reason: Spasms) Label Comments: spasms albuterol sulfate 2.5 MG/3 ML solution for nebulization 2.5 mg inhalation Q6H PRN PRN (Reason: Sob &/Or Wheezing) Label Comments: shortness of breath/wheezing simvastatin 40 MG tablet 40 mg PO QHS Label Comments: cholesterol ranitidine HCl 150 MG tablet 150 mg PO QHS Label Comments: acid reflux gabapentin 300 MG capsule 300 mg PO TID Label Comments: nerve pain bupropion HCl [Wellbutrin XL] 150 MG tablet extended release 24 hr 150 mg PO BID Label Comments: depression citalopram 40 MG tablet 40 mg PO DAILY Label Comments: depression insulin glargine U-300 conc 300 UNIT/ML insulin pen 20 unit SQ QHS Label Comments: glucose acetaminophen 325 MG tablet 650 mg PO Q6H PRN PRN (Reason: Pain/Fever) 0RF potassium chloride 20 MEQ tablet 20 meq PO BIDCM 0RF metoprolol tartrate 25 MG tablet 25 mg PO BID 0RF furosemide 40 MG tablet 40 mg PO DAILY Qty: 1 0RF budesonide-formoterol 1 INHALER inhaler 2 puff inhalation BID Qty: 1 0RF pioglitazone [Actos] 30 MG tablet 30 mg PO DAILY@0800 cephalexin 500 mg Capsule 500 mg PO Q8 3 Days Qty: 9 0RF Primary Care Provider: Care Physician,No Primary Referrals: Mera Julio MD [Med Staff - Summer Analyst] - 5-7 Days Care Physician,No Primary [Primary Care Provider] - Disposition Disposition: Home, Self Care
[2022-04-27 15:47] LABS: Bacteria 0 SEEN /hpf (None Seen); Mucous, Urine 0 SEEN /hpf (<or=2+); Red Blood Cells-Urine 0 SEEN /hpf (0-5)
[2022-04-27 15:50] LABS: Color, Urine Yellow (Yellow); Glucose, Dipstick 1000 mg/dl (Normal); Ketone-Dipstick Negative (Negative); Leukocyte Esterase-Dipstick 25 /ul (Negative); Nitrite-Dipstick Negative (Negative); Occult Blood-Urine Negative /ul (Negative); Protein-Dipstick Negative (Negative); Urine Bilirubin Dipstick Negative (Negative); Urine Clarity Clear (Clear); Urine Urobilinogen Normal (Normal)
[2022-04-27 15:51] LABS: Bedside Glucose 389 mg/dL (74-106)
[2022-04-27 16:20] LABS: Squamous Epithelial Cells - UA 0-5 SEEN /hpf (5-10); White Blood Cells 0-5 SEEN /hpf (0-5)
[2022-04-27 16:57] VITALS: BP 102/72; PULSE 90; RESP 16
== END 2022-04-27 17:05 | disposition home or self-care (01) ==
PROVIDERS: Emergency Provider Emergency Medicine; Visit Provider Emergency Medicine
DX: B37.9 Candidiasis, unspecified (principal); E11.9 Type 2 diabetes mellitus without complications; E66.9 Obesity, unspecified; Z99.81 Dependence on supplemental oxygen; Z87.891 Personal history of nicotine dependence
CPT/HCPCS: 81001; 82962; 99282

== ENCOUNTER → 2022-05-30 | Outpatient (CLI) | payer MEDICARE, SELFPAY ==
[2022-05-30 18:04] LABS: AST(SGOT) 16 U/L (15-37); Alanine Aminotransfer ALT/SGPT 18 U/L (13-56); Albumin, Serum 3.4 g/dL (3.2-5.0); Alkaline Phosphatase 155 U/L (45-117); Anion Gap 7 (5-15); BUN 14 mg/dL (7-18); Calcium,Total 9.9 mg/dL (8.5-10.1); Chloride 100 mmol/L (98-107); Cholesterol 205 mg/dL (200); Creatinine, Serum 0.64 mg/dL (0.55-1.02); EST Glomerular Filtration Rate 100 mL/min (>60); Est Glom Filt Rate - Afr Amer 121 mL/min (>60); Globulin 4.5 g/dL (2.2-4.2); Glucose 310 mg/dL (74-106); High Density Lipoprotein 57 mg/dL; Potassium 3.7 mmol/L (3.5-5.1); Protein, Total 7.9 g/dL (6.4-8.2); Sodium Level 133 mmol/L (136-145); Triglycerides 135 mg/dL; Very Low Density Lipoprotein 27 mg/dL (5-40)
[2022-05-30 18:32] LABS: Hemoglobin A1c 11.3 % (3.8-5.6)
[2022-05-30 18:43] LABS: Microalbumin,Random Urine 18.3 mg/L (NO RANGE EST.)
== END | disposition home or self-care (01) ==
LOC: MFPLAB 14:43
PROVIDERS: Visit Provider Family Medicine
DX: E11.65 Type 2 diabetes mellitus with hyperglycemia (principal)
CPT/HCPCS: 36415; 80048; 80061; 80076; 82043; 82570; 83036

== ENCOUNTER → 2022-07-14 | Outpatient (CLI) | payer MEDICARE, SELFPAY ==
[2022-07-14 15:32] LABS: Absolute Lymphocyte Count 1.93 X10^3/uL (0.83-4.51); Absolute Neutrophil Count 6.5 X10^3/uL (2.0-7.7); Basophil# 0.02 X10^3/uL; Basophil% 0.2 % (0-1); Eosinophil# 0.17 X10^3/uL; Eosinophils% 1.9 % (0-5); Hematocrit 42.3 % (37-47); Hemoglobin 13.1 g/dL (12.0-15.0); Lymphocyte # 1.93 X10^3/ul (0.83-4.51); Mean Corpuscular Hgb 25.7 pg (27.0-32.0); Mean Corpuscular Volume 83.1 fL (81-99); Monocyte% 5.5 % (0-10); NRBC Flagged by Analyzer 0 % (0-5); Neutrophil # 6.53 X10^3/uL (2.7-7.7); Neutrophil % 71.2 % (47-70); Platelet Count 327 K/mm3 (150-450); RBC Distribution Width CV 14.1 % (11.6-14.6); RBC Distribution Width SD 42.9 fl (35.1-43.9); Red Blood Count 5.09 M/mm3 (4.2-5.4); White Blood Count 9.2 K/mm3 (4.4-11.0)
[2022-07-14 16:03] LABS: Vitamin B12 256 pg/mL (211-911); Vitamin D,25 Hydroxy 30.9 ng/mL
[2022-07-14 16:06] LABS: ALB/GLOB Ratio 0.8 RATIO (0.9-2.4); AST(SGOT) 19 U/L (15-37); Alanine Aminotransfer ALT/SGPT 17 U/L (13-56); Albumin, Serum 3.5 g/dL (3.2-5.0); Alkaline Phosphatase 117 U/L (45-117); Anion Gap 7 (5-15); BUN 16 mg/dL (7-18); BUN/Creat Ratio 28.5 RATIO (10-20); Calcium,Total 9.5 mg/dL (8.5-10.1); Chloride 106 mmol/L (98-107); Cholesterol 134 mg/dL (200); Creatinine, Serum 0.56 mg/dL (0.55-1.02); EST Glomerular Filtration Rate 115 mL/min (>60); Est Glom Filt Rate - Afr Amer 139 mL/min (>60); Ferritin 61 ng/mL (8-252); Globulin 4.6 g/dL (2.2-4.2); Glucose 117 mg/dL (74-106); High Density Lipoprotein 55 mg/dL; Iron 46 ug/dL (50-170); Iron Binding Capacity,Total 370 ug/dL (250-450); PERCENT IRON SATURATION 12.4 % (15.0-55.0); Potassium 4.2 mmol/L (3.5-5.1); Protein, Total 8.1 g/dL (6.4-8.2); Sodium Level 139 mmol/L (136-145); Thyroid Stim Hormone (TSH) 1.03 uIU/mL (0.358-3.74); Triglycerides 74 mg/dL; Very Low Density Lipoprotein 15 mg/dL (5-40)
[2022-07-16 12:08] LABS: HEPATITIS B SURFACE AG Negative (Negative); Hep C Antibodies Non Reactive (Non Reactive); Hepatitis A IgM Antibody Negative (Negative); Hepatitis B Core AB IgM Negative (Negative)
== END | disposition home or self-care (01) ==
LOC: MFPLAB 12:06
PROVIDERS: PCP Family Medicine; Visit Provider Family Medicine
DX: D64.9 Anemia, unspecified (principal); K74.60 Unspecified cirrhosis of liver; E11.9 Type 2 diabetes mellitus without complications; K21.9 Gastro-esophageal reflux disease without esophagitis; E78.2 Mixed hyperlipidemia
CPT/HCPCS: 36415; 80053; 80061; 80074; 82306; 82607; 82728; 83540; 83550; 84443; 85025

== ENCOUNTER → 2022-08-09 | Outpatient (CLI) | payer MEDICARE, SELFPAY ==
[2022-08-09 10:26] LABS: Erythrocyte Sedimentation Rate 59 mm/hr (0-30)
[2022-08-09 10:48] LABS: PTHIN 63.8 pg/mL (18.4-80.1)
[2022-08-10 13:08] LABS: ANTINUCLEAR ANTIBODIES DIRECT Negative (Negative); Alpha Antitrypsin Serum 176 mg/dL (101-187)
[2022-08-17 09:07] LABS: Deamidated Gliadin IgA 5 units (0-19); Deamidated Gliadin IgG 5 units (0-19); Endomysial Antibody IgA Negative (Negative); Immunoglobulin A 208 mg/dL (87-352); PROEL- A/G Ratio 0.9 (0.7-1.7); PROEL- Albumin 3.4 g/dL (2.9-4.4); PROEL- Alpha-1 Globulin 0.3 g/dL (0.0-0.4); PROEL- Alpha-2 Globulin 0.9 g/dL (0.4-1.0); PROEL- Beta Globulin 1.2 g/dL (0.7-1.3); PROEL- Gamma Globulin 1.2 g/dL (0.4-1.8); PROEL- Globulin, Total 3.6 g/dL (2.2-3.9); t-Transglutaminase IgA <2 U/mL (0-3)
== END | disposition home or self-care (01) ==
LOC: MFPLAB 08:41
PROVIDERS: Family Medicine; PCP Family Medicine; Visit Provider Family Medicine
DX: R20.2 Paresthesia of skin (principal); K74.60 Unspecified cirrhosis of liver; E53.8 Deficiency of other specified B group vitamins
CPT/HCPCS: 36415; 82103; 82746; 82784; 83516; 83970; 84165; 85652; 86038; 86255